=== PATIENT | female | born 1960 | race Caucasian/White ===

== ENCOUNTER 2018-11-18 11:10 | Observation (INO) ==
[2018-11-18 12:53] LABS: BASO# 0.07 X1000 (0.0-0.2); BASO% 1.1 % (0.0-0.8); EOS# 0.17 X1000 (0.0-0.7); EOS% 2.6 % (0.0-10.0); HEMATOCRIT 40.5 % (37.0-47.0); HEMOGLOBIN 13.2 g/dL (12.0-16.0); LYMPH% 21.1 % (20.5-51.1); MCHC 32.6 g/dL (33-37); MCV 85.8 FL (81-99); MONO# 0.39 X1000 (0.11-0.59); MONO% 5.9 % (1.7-9.3); NEUT# 4.59 X1000 (1.4-6.5); NEUT% 69.3 % (42.2-75.2); PLT 223 X1000 (130-400); RBC 4.72 XMIL (4.2-5.4); RDW 13.2 % (11.5-14.5); WBC 6.62 X1000 (4.8-10.8)
[2018-11-18 13:18] LABS: URINE SOURCE CATH
[2018-11-18 13:25] LABS: ALB/GLOB RATIO 1.3; ALBUMIN 3.7 g/dL (3.5-5.0); CALCIUM 8.5 mg/dL (8.8-10.2); CREATININE 1.1 mg/dL (0.5-0.9); TOTAL BILIRUBIN 0.31 mg/dL (0.20-1.00); TOTAL PROTEIN 6.5 g/dL (6.3-8.3)
[2018-11-18 13:30] LABS: BILIRUBIN URINE NEGATIVE (NEGATIVE); BLOOD URINE TRACE (NEGATIVE); COLOR YELLOW; GLUCOSE URINE 70 mg/dL (NEGATIVE); KETONE URINE NEGATIVE (NEGATIVE); LEUKOCYTES URINE LARGE (NEGATIVE); NITRITE URINE NEGATIVE (NEGATIVE); PH URINE 5.5; PROTEIN URINE 30 mg/dL (NEGATIVE); SP GRAVITY URINE 1.015; TURBIDITY URINE HAZY (CLEAR); UROBILINOGEN URINE NORMAL (NORMAL)
--- NOTE | 2018-11-18 13:41 | Diag Imaging Result Doc PS360 ---
KUB ABDOMEN - 11/18/2018 INDICATION: constipation c flank pain x 4 days COMPARISON: None FINDINGS: There is severe constipation, with impaction of the proximal ascending and transverse colon. No bowel obstruction or visible free air. There is significant vascular disease with calcification of the iliac artery systems and femoral arteries. IMPRESSION: 1. Severe constipation. 2. Peripheral vascular disease. Electronically signed by Alexis Colon 11/18/2018 1:38 PM
[2018-11-18 13:47] LABS: UR EPITHELIAL CELLS >10 /HPF (<10); URINE BACTERIA NEGATIVE /HPF; URINE CASTS NONE SEEN; URINE CRYSTALS NONE SEEN; URINE RBC <10 /HPF (<10); URINE WBC <10 /HPF (<10)
[2018-11-18 13:48] LABS: URINE SMALL ROUND CELLS RENAL PRESENT
[2018-11-18] MEDS ORDERED: ROCEPHIN 1 GM in NS 50 ML IV ONE (13:57)
--- NOTE | 2018-11-18 14:23 | PROVIDER DOCUMENTATION ---
HPI-General Adult - General Chief Complaint: Abdominal Pain Stated Complaint: abdominal pain Time Seen by Provider: 11/18/18 12:25 Source: patient Allergies/Adverse Reactions: Patient Allergies Allergy/AdvReac Type Severity Reaction Status Date / Time aspirin Allergy Severe RECTAL Verified 11/16/18 09:16 BLEEDING clindamycin Allergy Unknown RASH Verified 11/16/18 09:16 latex Allergy Unknown RASH Verified 11/16/18 09:16 sulfamethoxazole Allergy Unknown SWELLING Verified 11/16/18 09:16 [From Bactrim] trimethoprim [From Bactrim] Allergy Unknown SWELLING Verified 11/16/18 09:16 Home Medications: Home Medication List Medication Instructions Recorded Confirmed Last Taken Type Hydroxychloroquine Sulfate 200 mg PO DAILY 12/19/12 11/16/18 11/15/18 History Carvedilol [Coreg] 12.5 mg PO BID #60 tab 03/16/18 11/16/18 11/15/18 Rx ATORVAstatin [Lipitor] 40 mg PO QHS 06/17/18 11/16/18 11/15/18 History Aspirin [Adult Aspirin] 1 tab PO DAILY 09/29/18 11/16/18 11/15/18 History Ranolazine E.r. [Ranexa] 1 tab PO BID 09/29/18 11/16/18 11/15/18 History Ticagrelor [Brilinta] 1 tab PO BID 09/29/18 11/16/18 11/15/18 History Aripiprazole [Abilify] 5 mg PO QHS #30 tab 10/07/18 11/16/18 11/15/18 Rx Duloxetine [Cymbalta] 30 mg PO DAILY #30 cap 10/07/18 11/16/18 11/15/18 Rx Mirtazapine [Remeron] 15 mg PO QHS #30 tab 10/07/18 11/16/18 11/15/18 Rx Cephalexin [Keflex] 500 mg PO Q6HR #28 cap 11/12/18 11/16/18 11/15/18 Rx Cholecalciferol (Vitamin D3) 1 cap PO DAILY 11/12/18 11/16/18 11/15/18 History [Vitamin D3] Hydrocortisone Supp [Anusol-Hc 25 mg CO BID #12 supp 11/12/18 11/16/18 11/15/18 Rx Supp] Losartan [Cozaar] 25 mg PO DAILY 11/12/18 11/16/18 11/15/18 History Meclizine HCl [Antivert] 25 mg PO TID PRN #30 tab 11/12/18 11/16/18 11/15/18 Rx Melatonin 6 mg PO QHS PRN 11/12/18 11/16/18 11/15/18 History - History of Present Illness -Gen Adult Nature of Presenting Problems: 58 yo female pt who presents to the ED via EMS after she was found by her home health nurse sitting in her own feces. She reports that she had been to [facility] and recently had to have a catheter placed due to having urinary retention. She reports that she has abdominal pain, back pain, and generalized body aches. Review of Systems - Adult - REVIEW OF SYSTEMS - ADULT Constitutional: reports: no symptoms reported Eyes: reports: no symptoms reported Ears, Nose, Mouth & Throat: reports: no symptoms reported Cardiovascular: reports: no symptoms reported Respiratory: reports: no symptoms reported Gastrointestinal: reports: abdominal pain, constipation. denies: nausea, vomiting Genitourinary: reports: see HPI, dysuria, hesitency, urinary retention Musculoskeletal: reports: see HPI, back pain, muscle aches Integumentary: reports: no symptoms reported Neurological: reports: see HPI, other (generalized weakness) Psychiatric: reports: see HPI, anxiety, anti-depressant use, depression Past History - Adult - PAST MEDICAL HISTORY-ADULT Review of Records: reports: Old Records Reviewed, Nursing Assessment Review, Medications Reviewed, Social history reviewed & non-contributory. Major Childhood Illnesses: reports: denies history Cardiovascular: reports: CAD, HTN, hyperlipidemia, palpitations Respiratory: reports: denies history Gastrointestinal: reports: denies history Obstetrical/Gynecological: reports: denies history Genitourinary: reports: kidney disease (does not req dialysis) Musculoskeletal: reports: denies history Neurological: reports: denies history Psychiatric: reports: anxiety, psychiatric problems (suicidal thoughts, was at aug 7-15.) Endocrine/Immune: reports: Diabetes, lupus Other Conditions: reports: cataract/glaucoma (bilateral cat), eye problems/ injury (left eye hemmorage) - PRIOR SURGERIES/PROCEDURES Surgical/Procedure History: reports: cardiac stent (x2 jul 2018), , other (bilateral cataract) - IMMUNIZATION STATUS Childhood Immunizations: See Nurse Assessment Flu Vaccine: See Nurse Assessment - FAMILY HISTORY Family History: reviewed, not pertinent Physical Exam-General - PHYSICAL EXAM-ADULT Initial Vital Signs Reviewed: Yes - CONSTITUTIONAL General Appearance: appears well, alert, no apparent distress - EYES Eyes: PERRL/EOMI, pink conjunctivae - HEAD, EARS, NOSE, MOUTH & THROAT HENMT: normocephalic/atraumatic, moist mucous membranes, normal ENT inspection - NECK Neck: non-tender, full range of motion, supple - RESPIRATORY Respiratory: chest non-tender, lungs clear, normal breath sounds, no pleuratic chest pain - CARDIOVASCULAR Cardiovascular: normal peripheral pulses, regular rate, rhythm, no edema, no gallop, no JVD, no murmur - GASTROINTESTINAL (ABDOMEN) Abdominal Exam: distended, other (hypoactive bowel sounds with generalized abdominal tenderness). negative: non tender - LYMPHATIC Lymphatic: no adenopathy - MUSCULOSKELETAL Back Exam: normal inspection Extremity: normal range of motion Peripheral Pulses: radial (R): 2+, radial (L): 2+ - SKIN Integumentary: normal color, normal turgor, warm/dry - NEUROLOGIC Neurologic: grossly normal - PSYCHIATRIC Psych/Mental Status: normal mood/affect, normal thought content, normal thought process, oriented x 3 Progress - PLAN OF CARE/RESULTS Progress/Plan/Lab Results: Vital Signs - 8 hr 11/18/18 11:22 11/18/18 12:35 11/18/18 12:40 Temperature 98.8 F Pulse Rate 96 H 96 H 96 H Respiratory Rate 18 21 13 Blood Pressure 157/81 130/80 O2 Sat by Pulse Oximetry 99 98 97 11/18/18 12:50 11/18/18 13:00 11/18/18 13:02 Temperature Pulse Rate 93 H 93 H 93 H Respiratory Rate 15 11 L 13 Blood Pressure 156/84 O2 Sat by Pulse Oximetry 97 96 97 11/18/18 13:10 11/18/18 13:20 Temperature Pulse Rate 94 H 92 H Respiratory Rate 21 17 Blood Pressure O2 Sat by Pulse Oximetry 99 97 Laboratory Results - last 24 hr 11/18/18 11/18/18 11/18/18 11:21 12:22 12:22 WBC 6.62 RBC 4.72 Hgb 13.2 Hct 40.5 MCV 85.8 MCH 28.0 MCHC 32.6 L RDW Std Deviation 13.2 Plt Count 223 MPV 11.0 H Immature Gran % (Auto) 0.0 Neut % (Auto) 69.3 Lymph % (Auto) 21.1 Dickey % (Auto) 5.9 Eos % (Auto) 2.6 Baso % (Auto) 1.1 H Immature Gran # (Auto) 0.00 Neut # (Auto) 4.59 Lymph # (Auto) 1.40 Dickey # (Auto) 0.39 Eos # (Auto) 0.17 Baso # (Auto) 0.07 Sodium 143 Potassium 4.0 Chloride 103 Carbon Dioxide 27 Anion Gap 13 BUN 17 Creatinine 1.1 H Estimated GFR/1.73 m2 51 BUN/Creatinine Ratio 15 Glucose 87 POC Glucose 91 Calculated Osmolality 286 Calcium 8.5 L Total Bilirubin 0.31 AST 28 ALT 23 Alkaline Phosphatase 60 Total Protein 6.5 Albumin 3.7 Globulin 2.8 Albumin/Globulin Ratio 1.3 Amylase 55 Lipase 14 Urine Source Urine Color Urine Turbidity Urine pH Ur Specific Jackson Urine Protein Ur Glucose (Stick) Ur Ketones (Stick) Urine Blood Urine Nitrite Urine Bilirubin Urobilinogen Dipstick Urine Leukocytes Urine WBC (Auto) Urine RBC (Auto) U Epithel Cells (Auto) Urine Bacteria (Auto) Urine Crystals Small Round Cells Urine Casts Urine Yeast-like Cells 11/18/18 13:10 WBC RBC Hgb Hct MCV MCH MCHC RDW Std Deviation Plt Count MPV Immature Gran % (Auto) Neut % (Auto) Lymph % (Auto) Dickey % (Auto) Eos % (Auto) Baso % (Auto) Immature Gran # (Auto) Neut # (Auto) Lymph # (Auto) Dickey # (Auto) Eos # (Auto) Baso # (Auto) Sodium Potassium Chloride Carbon Dioxide Anion Gap BUN Creatinine Estimated GFR/1.73 m2 BUN/Creatinine Ratio Glucose POC Glucose Calculated Osmolality Calcium Total Bilirubin AST ALT Alkaline Phosphatase Total Protein Albumin Globulin Albumin/Globulin Ratio Amylase Lipase Urine Source CATH Urine Color YELLOW Urine Turbidity HAZY Urine pH 5.5 Ur Specific Jackson 1.015 Urine Protein 30 A Ur Glucose (Stick) 70 A Ur Ketones (Stick) NEGATIVE Urine Blood TRACE A Urine Nitrite NEGATIVE Urine Bilirubin NEGATIVE Urobilinogen Dipstick NORMAL Urine Leukocytes LARGE A Urine WBC (Auto) <10 Urine RBC (Auto) <10 U Epithel Cells (Auto) >10 A Urine Bacteria (Auto) NEGATIVE Urine Crystals NONE SEEN Small Round Cells RENAL PRESENT Urine Casts NONE SEEN Urine Yeast-like Cells Not Reportable Orders Category Date Time Status Saline Loc DIRECTED Care 11/18/18 12:20 Active NPO Diet 11/18/18 12:20 Active KUB ABDOMEN [RAD] Stat Exams 11/18/18 13:23 Completed AMYLASE [CHEM] Stat Lab 11/18/18 12:22 Completed CBC WITH ELECTRONIC DIFF [HEME] Stat Lab 11/18/18 12:22 Completed COMPREHENSIVE METABOLIC PANEL [CHEM] Stat Lab 11/18/18 12:22 Completed LIPASE [CHEM] Stat Lab 11/18/18 12:22 Completed URINALYSIS W/POSS RFLX CULT [URINALYSIS] Stat Lab 11/18/18 13:10 Completed URINE CULTURE [RM] Routine Lab 11/18/18 13:51 Received URINE MANUAL MICROSCOPIC [URINALYSIS] Stat Lab 11/18/18 13:10 Completed CefTRIAXONE [Rocephin] 1 gm Med 11/18/18 13:57 Active 0.9% Sodium Chloride Inj [Ns] 50 ml IV NOW I consulted the pt PCP who agreed that the pt is a failure to thrive, according to him the pt has a son, however they are not in contact, and the pt has no other family members. I consulted Destiny and discussed the pt labs, PE, and hx and she agreed to admit the pt. Result Diagrams: 11/18/18 12:22 11/18/18 12:22 Departure - Departure Date of Disposition Decision: 11/18/18 Time of Disposition Decision: 15:34 DIAGNOSIS: Failure to thrive, Urinary tract infection Disposition: ADMITTED INPATIENT 09 Certified Medical Emergency: Emergent Condition: Stable Referrals and Follow-Ups: Cooper Garcia MD [Primary Care Provider] - - Critical Care Note This patient required my direct & personal management of CC.: No Attestation - Physician/ CORINNE Attestation Patient care was provided by Advanced Practice Provider:: Yes Advanced Practice Provider:: Sang Lamb Advanced Practice Provider documentation review:: The Mid-level provider documentation, treatment plan and medical decision making was reviewed by the physician who agrees with all treatment and medical decision making by the MLP. The physician spent face to face time with patient:: No Advanced Practice Provider documentation review:: Supervising physician onsite and consulted in the evaluation and care of this patient. The physician did not have a face to face encounter with the patient.
[2018-11-18] MEDS ORDERED: TYLENOL PO PRN (15:49)
[2018-11-18] MEDS ORDERED: ZOFRAN IV PRN (15:49)
[2018-11-18] MEDS: NS 1,000 ML IV SCH (16:08)
--- NOTE | 2018-11-18 17:05 | Diag Imaging Result Doc PS360 ---
EXAM: US ABDOMEN-COMPLETE INDICATION: abd pain COMPARISON: 05/03/2011 FINDINGS: There is layering sludge and stones in the gallbladder lumen. There is no evidence of gallbladder wall thickening or pericholecystic fluid. The common bile duct is normal in diameter. The liver is grossly unremarkable. Portal venous flow is hepatopetal. The pancreas is partially obscured by bowel gas. The visualized portion is unremarkable. The aorta and IVC are grossly unremarkable. The spleen is unremarkable. The kidneys are grossly unremarkable. Incidentally, layering debris is noted in the urinary bladder lumen. IMPRESSION: 1.Cholelithiasis and layering sludge in the gallbladder lumen. 2.Incidental layering debris in the urinary bladder lumen. Electronically signed by Gabriel Ordaz 11/18/2018 5:03 PM
--- NOTE | 2018-11-18 17:15 | HISTORY AND PHYSICAL ---
HISTORY OF PRESENT ILLNESS: This is a 58-year-old followed by Dr. Garcia. The story is that she was I think having some trouble with her bladder and unable to void. I understand went to the emergency room a week ago , and she had a catheter put in. She was sent back home, and then she seems to report that she has been in the bed since , this is Saturday, but apparently has been in the bed a good portion of the time, and she has had lower abdominal pain. That is what took her to the emergency room, and they thought that was probably bladder distention and that may be what she is experiencing now. She complains that she has always had trouble with constipation, but she seems very weak, could not get up. Home health came out, and they found her, I think in the bed with incontinence and told her to come to the emergency room. She does not give a history of fever or chills or cough or sputum production or pleuritic pain or chest pain, just feeling very weak. Did not eat or drink much, by her report, and stayed tired and stayed in the bed. PAST MEDICAL HISTORY: 1. Depression and anxiety. Her spouse in November 2016. 2. She has diabetes mellitus type 2. She is having visual trouble so apparently diabetic retinopathy and peripheral neuropathy. 3. She has had a suicide attempt, an overdose in 2018, and she was admitted to [facility]. 4. Major depressive disorder. 5. General anxiety disorder. 6. Insomnia. 7. Mild cognitive impairment. 8. Coronary artery disease. She has had 2 stents placed in July 2018. 9. Hypertension. 10. Hypercholesterolemia. 11. It sounds like lupus, but I do not know if this is discoid lupus or systemic lupus erythematosus. 12. Gastroesophageal reflux. 13. Diabetic neuropathy.
[2018-11-19] MEDS: RANEXA PO SCH ×3 (00:17→20:51)
[2018-11-19] MEDS: PERICOLACE PO SCH ×3 (00:17→20:51)
[2018-11-19] MEDS: ABILIFY PO SCH ×2 (00:17→20:51)
[2018-11-19] MEDS: BRILINTA PO SCH ×3 (00:18→20:53)
[2018-11-19] MEDS: COREG PO SCH ×3 (00:18→20:51)
[2018-11-19] MEDS: REMERON PO SCH ×2 (00:18→20:56)
[2018-11-19] MEDS: PRILOSEC PO SCH ×3 (00:18→20:52)
[2018-11-19] MEDS: LIPITOR PO SCH ×2 (00:26→20:51)
[2018-11-19] MEDS: LACTULOSE PO SCH ×3 (00:26→20:53)
[2018-11-19] MEDS: MIRALAX PO SCH ×3 (00:27→20:53)
[2018-11-19 06:18] LABS: INR 0.98; PROTIME 13.8 Seconds (11.0-16.0)
[2018-11-19 06:19] LABS: BASO# 0.04 X1000 (0.0-0.2); BASO% 0.6 % (0.0-0.8); EOS# 0.16 X1000 (0.0-0.7); EOS% 2.5 % (0.0-10.0); HEMATOCRIT 33.5 % (37.0-47.0); HEMOGLOBIN 10.7 g/dL (12.0-16.0); LYMPH# 1.87 X1000 (1.2-3.4); LYMPH% 29.4 % (20.5-51.1); MCH 27.9 PG (27-31); MCHC 31.9 g/dL (33-37); MCV 87.5 FL (81-99); MONO# 0.56 X1000 (0.11-0.59); MONO% 8.8 % (1.7-9.3); MPV 11.1 FL (7.4-10.4); NEUT# 3.74 X1000 (1.4-6.5); NEUT% 58.7 % (42.2-75.2); PLT 209 X1000 (130-400); PTT 30.4 Seconds (22.3-41.8); RBC 3.83 XMIL (4.2-5.4); WBC 6.37 X1000 (4.8-10.8)
[2018-11-19 06:28] LABS: HEMOGLOBIN A1C 5.6 % (4.8-6.0)
[2018-11-19] MEDS: NS 1,000 ML IV SCH (06:32)
[2018-11-19 06:46] LABS: ALB/GLOB RATIO 1.4; ALBUMIN 3.2 g/dL (3.5-5.0); CALCIUM 8.5 mg/dL (8.8-10.2); CREATININE 1.1 mg/dL (0.5-0.9); MAGNESIUM 1.7 mg/dL (1.5-2.7); POTASSIUM 3.5 mmol/L (3.5-5.1); TOTAL BILIRUBIN 0.2 mg/dL (0.20-1.00); TOTAL PROTEIN 5.5 g/dL (6.3-8.3)
[2018-11-19 06:50] LABS: FREE T4 1.35 ng/dL (0.93-1.70); TSH 1.61 uIUmL (0.27-4.20)
[2018-11-19] MEDS: ROCEPHIN 1 GM in NS 50 ML IV SCH (08:52)
[2018-11-19] MEDS: PLAQUENIL PO SCH (08:52)
[2018-11-19] MEDS: VITAMIN D PO SCH (08:54)
[2018-11-19] MEDS: DULCOLAX PR SCH (08:56)
[2018-11-19] MEDS: LOVENOX SUBQ SCH (08:56)
[2018-11-19] MEDS ORDERED: CYMBALTA PO SCH (09:00)
[2018-11-19] MEDS: COZAAR PO SCH (09:06)
--- NOTE | 2018-11-19 09:58 | PROGRESS NOTE ---
DATE: 11/19/2018 SUBJECTIVE: Ms. Pak is feeling a little bit better. She has a Barboza catheter in. She has not had anything in the way of a bowel movement. She is tolerating her breakfast well. She is awake, alert, and oriented x3 at the present time. She appears pleasant and cooperative. PHYSICAL EXAMINATION: Temperature 99 degrees, pulse 85, respirations 18, blood pressure 115/78. Pupils are equal and round. Lungs are clear in all lung alford. Cardiovascular Examination: Regular rhythm and rate without murmur or S3. Abdomen is soft. Skin is warm and dry. Urine output was 3200 mL. ASSESSMENT AND PLAN: 1. Severe constipation. Her abdominal x-ray on 11/18/2018, yesterday, showed severe constipation and some evidence of peripheral vascular disease. We will continue her lactulose and her MiraLAX. 2. Bladder retention. Had a good amount of residual when they put the Barboza catheter in. I suspect this was related to her constipation. Try to clean her out. See if we can get her bowels moving and get her bladder working better to empty. 3. History of depression. Continue her current medications. 4. History of coronary artery disease. She has had two stents in July. She is on Lipitor and Cozaar. 5. History of depression and anxiety. She is on Cymbalta 30 mg a day and Abilify 5 mg at bedtime. 6. We will give her physical therapy, work on getting her up out of bed, and work on her strength. cc: Ramses Mcfadden MD
--- NOTE | 2018-11-19 15:13 | CONSULTATION ---
DATE OF CONSULTATION: 11/19/2018 REASON FOR CONSULTATION: Severe constipation. HISTORY OF PRESENT ILLNESS: This is a 58-year-old white female who follows with Dr. Garcia. By records in our chart, we have not seen her in over 10 years. She has a burnt chart. Apparently, patient had been having some problems with her bladder. She reports that she had cardiovascular stents placed in July. Since then, she had been not feeling well and was getting home health to help with strengthening. She had apparently had some problems with constipation. She had reported having bowel movements every other day. Apparently home health had followed with her and she had stool incontinence, She was brought into the emergency room for further evaluation. She had imaging studies that showed severe constipation with impaction of the proximal ascending and transverse colon with no evidence of bowel obstruction or free air and noted peripheral vascular disease. She has also had an abdominal ultrasound that shows cholelithiasis and sludge in the gallbladder and layering debris in the urinary bladder. There was no evidence of gallbladder wall thickening or pericholecystic fluid. Common bile duct was normal. Patient has been given multiple laxatives. At the time of my evaluation, she states she has had a formed stool this morning. PAST MEDICAL HISTORY 2. Anxiety and depression. Her in November 2016. 3. Diabetes. 4. History of suicidal attempt in 2017. 5. Coronary artery disease. Patient had cardiovascular stents placed in July 2018. 6. Hypertension, 7. Hypercholesterolemia. 8. Lupus. 9. GERD. 10. Diabetic neuropathy. 11. Chronic kidney disease. 12. Diabetic retinopathy. 13. Osteoarthritis. 14. History of cataracts. ALLERGIES: Aspirin causing rectal bleeding. Clindamycin rash. Latex rash. Bactrim swelling. HOME MEDICATIONS: 1. Abilify 5 mg every night. 2. Aspirin 1 tablet daily. 3. Lipitor 40 mg every night. 4. Carvedilol 6.25 twice daily. 5. Vitamin D 3 one daily. 6. Ciprofloxacin 500 mg twice a day. 7. Cymbalta 30 mg every night. 8. Hydroxychloroquine sulfate 200 mg daily. 9. Flagyl 500 mg three times a day. 10. Remeron 15 mg every night. 11. Ranexa 500 mg twice a day. 12. Brilinta 1 tablet twice a day. SOCIAL HISTORY: She lives alone. Her spouse in 2016. She denies tobacco or alcohol use. She has 2 sons. REVIEW OF SYSTEMS: Per history of present illness. PHYSICAL EXAMINATION: Vital Signs: Temperature 98.6 degrees, pulse 84, respirations 15, blood pressure 116/54. Generally: Awake, alert, no acute distress. HEENT: Normocephalic, atraumatic. Pupils equal, round, reactive to light. Sclerae are nonicteric. Respiratory: Lung sounds essentially clear bilaterally. Cardiovascular: Regular rate and rhythm. Abdomen: Soft. Positive bowel sounds. At present time, she was not tender to palpation. She states she did have a bowel movement. DIAGNOSTIC RESULTS: Laboratory: Hematology: WBC 6.37, hemoglobin 10.7, hematocrit 33.5, MCV 87.5, platelets 209. Coagulation: Pro time 13.8, INR 0.98, PTT 30.4. Chemistry: Sodium 141, potassium 3.5, chloride 104, CO2 28. BUN 23, creatinine 1.1, glucose 143, total bilirubin 0.20. AST 25, ALT 20, alkaline phosphatase 53. Imaging studies: Abdominal x-ray on 11/18/2018 showed severe constipation with impaction of proximal ascending and transverse colon and peripheral vascular disease. An ultrasound of the abdomen showed cholelithiasis with layering sludge with no evidence of gallbladder wall thickening. ASSESSMENT AND PLAN: 1. Severe constipation. Patient has had laxatives and did have a bowel movement this morning. 2. Bladder retention. Patient has a Barboza catheter in place. 3. Other medical problems including anxiety, depression, coronary artery disease. The patient had cardiovascular stents placed in July and is on Brilinta. 4. Continue current laxatives. She is receiving MiraLAX, Senna, lactulose and Dulcolax. Once she starts going better, those can be adjusted according to her symptoms. Due to her recent cardiovascular stents in July and on Brilinta, would not proceed with a colonoscopy at this time. Will continue to follow her during her hospital course and further plans will be made according to her progress. Recommend when she is discharged home, she will be discharged on daily laxatives. Recommend she follow up with us as an outpatient. She does not think she has ever had a colonoscopy. We will plan to proceed with a colonoscopy when she is able to come off of her anticoagulation safely. I have discussed this case with Dr. Fernandes. Thank you for this consultation. Dictated by TC Dutton for Clint Fernandes MD cc: TC Bonner MD [facility]
[2018-11-19] MEDS ORDERED: CALMOSEPTINE OINTMENT TOP PRN (17:09)
[2018-11-19] MEDS: CYMBALTA PO SCH (20:51)
[2018-11-19] MEDS: MELATONIN PO PRN (21:09)
[2018-11-20 07:23] LABS: BASO# 0.03 X1000 (0.0-0.2); BASO% 0.6 % (0.0-0.8); EOS# 0.11 X1000 (0.0-0.7); HEMATOCRIT 33.3 % (37.0-47.0); HEMOGLOBIN 10.5 g/dL (12.0-16.0); LYMPH# 1.94 X1000 (1.2-3.4); LYMPH% 35.7 % (20.5-51.1); MCH 27.5 PG (27-31); MCHC 31.5 g/dL (33-37); MCV 87.2 FL (81-99); MONO# 0.36 X1000 (0.11-0.59); MONO% 6.6 % (1.7-9.3); NEUT% 55.1 % (42.2-75.2); PLT 197 X1000 (130-400); RBC 3.82 XMIL (4.2-5.4); WBC 5.44 X1000 (4.8-10.8)
[2018-11-20 07:35] LABS: ALB/GLOB RATIO 1.3; ALBUMIN 3.2 g/dL (3.5-5.0); CALCIUM 8.3 mg/dL (8.8-10.2); CREATININE 1.1 mg/dL (0.5-0.9); MAGNESIUM 1.6 mg/dL (1.5-2.7); POTASSIUM 3.7 mmol/L (3.5-5.1); TOTAL BILIRUBIN 0.16 mg/dL (0.20-1.00); TOTAL PROTEIN 5.6 g/dL (6.3-8.3)
[2018-11-20] MEDS: NS 1,000 ML IV SCH ×2 (08:43→21:42)
[2018-11-20] MEDS: ROCEPHIN 1 GM in NS 50 ML IV SCH (08:44)
[2018-11-20] MEDS: PLAQUENIL PO SCH (08:47)
[2018-11-20] MEDS: RANEXA PO SCH ×2 (08:47→21:39)
[2018-11-20] MEDS: COZAAR PO SCH (08:48)
[2018-11-20] MEDS: BRILINTA PO SCH ×2 (08:48→21:39)
[2018-11-20] MEDS: VITAMIN D PO SCH (08:48)
[2018-11-20] MEDS: COREG PO SCH ×2 (08:48→21:41)
[2018-11-20] MEDS: DULCOLAX PR SCH (08:54)
[2018-11-20] MEDS: LACTULOSE PO SCH ×2 (08:55→21:38)
[2018-11-20] MEDS: LOVENOX SUBQ SCH (08:55)
[2018-11-20] MEDS: PRILOSEC PO SCH ×2 (08:55→21:39)
[2018-11-20] MEDS: MIRALAX PO SCH (08:55)
[2018-11-20] MEDS: PERICOLACE PO SCH ×2 (08:55→21:40)
--- NOTE | 2018-11-20 13:18 | PROGRESS NOTE ---
DATE: 11/20/2018 SUBJECTIVE: She reports she feels better. She has had a couple bowel movements. Her stools are kind of loose. She has been walking around the halls. She is getting some food down. OBJECTIVE: Vital Signs: Temperature 97.8 degrees, pulse 87, respirations 18, blood pressure 111/69. Eyes: Pupils are equal and round. Lungs: Clear in all lung alford. Cardiovascular exam: Regular rhythm and rate without murmur or S3. Blood sugars 132, 111 and 133. ASSESSMENT AND PLAN: 1. Severe constipation. So, seems to be making progress. 2. Bladder retention. Put a Barboza catheter in place, which we will probably need to take that out tomorrow and see how we do voiding. I suspect it is related to constipation. 3. Problem with anxiety, depression. 4. History of coronary artery disease. No sign of active ischemia. She has had cardiac stents placed in July and she is on Brilinta. 5. General weakness. Continue physical therapy. Seems like we are making progress. Review of her medication orders: I do not see any change. Physical therapy is already involved I believe. cc: Ramses Mcfadden MD
[2018-11-20] MEDS: ABILIFY PO SCH (21:39)
[2018-11-20] MEDS: REMERON PO SCH (21:40)
[2018-11-20] MEDS: LIPITOR PO SCH (21:40)
[2018-11-20] MEDS: CYMBALTA PO SCH (21:40)
[2018-11-21] MEDS: NS 1,000 ML IV SCH ×4 (00:25→20:56)
[2018-11-21] MEDS: MIRALAX PO SCH ×3 (00:25→20:58)
[2018-11-21] MEDS: ROCEPHIN 1 GM in NS 50 ML IV SCH (08:27)
[2018-11-21] MEDS: LACTULOSE PO SCH ×2 (08:28→20:57)
[2018-11-21] MEDS: LOVENOX SUBQ SCH (08:29)
[2018-11-21] MEDS: DULCOLAX PR SCH (08:29)
[2018-11-21] MEDS: PERICOLACE PO SCH ×2 (08:30→20:56)
[2018-11-21] MEDS: PRILOSEC PO SCH ×2 (08:31→20:57)
[2018-11-21] MEDS: RANEXA PO SCH ×2 (08:31→20:55)
[2018-11-21] MEDS: PLAQUENIL PO SCH (08:32)
[2018-11-21] MEDS: COZAAR PO SCH (08:32)
[2018-11-21] MEDS: VITAMIN D PO SCH (08:32)
[2018-11-21] MEDS: BRILINTA PO SCH ×2 (08:32→20:57)
[2018-11-21] MEDS: COREG PO SCH ×2 (08:32→20:56)
--- NOTE | 2018-11-21 14:38 | PROGRESS NOTE ---
DATE: 11/21/2018 SUBJECTIVE: She is doing better. Her bowels have moved, but she still has a good deal of urinary retention, I think it was 600 mL, so we put a Barboza catheter in her. OBJECTIVE: Vital signs: She remains afebrile, temperature 98.8 degrees, pulse 82, respirations 20, blood pressure 124/70. HEENT: Pupils are equal and round. Lungs: Clear in all lung alford. Cardiovascular: Regular rhythm and rate without murmur or S3. Abdomen: Soft. Skin: Warm and dry. Urine output 1400 mL. Last night her urine output was 3000 mL. ASSESSMENT AND PLAN: 1. Severe constipation. 2. Bladder retention. We put a Barboza catheter back in because of urinary retention. 3. Anxiety and depression. 4. History of coronary artery disease. No sign of active ischemia. 5. General weakness, deconditioning. 6. I think she is improving on all fronts. Her sons would really like her to go to rehab, so we are going to try and set up something for rehab for a time until she can get a little stronger and go home. Plan is to try and take the Barboza catheter out again and see how we do with her urinary discharge. Looking at her orders, I do not see any change at this point. 7. History of coronary artery disease. She is on Brilinta. No sign of active cardiac ischemia. cc: Ramses Mcfadden MD
--- NOTE | 2018-11-21 18:31 | GASTROENTEROLOGY PROGRESS NOTE ---
DATE: 11/21/2018 SUBJECTIVE: Patient states she is feeling better. She has had several bowel movements. She is continuing on laxative. OBJECTIVE: Vital Signs: Temperature 98.4 degrees, pulse 79, respirations 18, blood pressure 157/75. General: Patient is awake, alert, no acute distress. LABORATORY: Hematology. WBC 5.44, hemoglobin 10.5, hematocrit 33.3. Chemistry. Sodium 141, potassium 3.7, chloride 106, CO2 26, BUN 17, creatinine 1.1, glucose 109. ASSESSMENT AND PLAN: 1. Severe constipation. Patient has had laxative. She is having bowel movements now. Continue laxative regimen and recommend once she is discharged she continue laxatives at home. 2. Bladder retention following with hospitalist. 3. Again continue laxative regimen, continue laxatives at home. Recommend she follow up with us at discharge. I have given her contact information to call and make an office visit appointment. I have discussed this case with Dr. Fernandes. Dictated by TC Dutton for Clint Fernandes MD cc: TC Bonner MD
[2018-11-21] MEDS: REMERON PO SCH (20:55)
[2018-11-21] MEDS: ABILIFY PO SCH (20:55)
[2018-11-21] MEDS: LIPITOR PO SCH (20:57)
[2018-11-21] MEDS: MELATONIN PO PRN (21:00)
[2018-11-21] MEDS: CYMBALTA PO SCH (21:04)
[2018-11-22] MEDS: NS 1,000 ML IV SCH ×2 (08:05→20:47)
[2018-11-22] MEDS: COREG PO SCH ×2 (10:17→20:48)
[2018-11-22] MEDS: PLAQUENIL PO SCH (10:17)
[2018-11-22] MEDS: VITAMIN D PO SCH (10:17)
[2018-11-22] MEDS: PRILOSEC PO SCH ×2 (10:17→20:50)
[2018-11-22] MEDS: BRILINTA PO SCH ×2 (10:18→20:48)
[2018-11-22] MEDS: RANEXA PO SCH ×2 (10:18→20:50)
[2018-11-22] MEDS: LOVENOX SUBQ SCH ×2 (10:20→10:23)
[2018-11-22] MEDS: ROCEPHIN 1 GM in NS 50 ML IV SCH (10:20)
[2018-11-22] MEDS: COZAAR PO SCH (10:20)
[2018-11-22] MEDS: DULCOLAX PR SCH (10:22)
[2018-11-22] MEDS: MIRALAX PO SCH ×2 (10:23→20:48)
[2018-11-22] MEDS: PERICOLACE PO SCH ×2 (10:23→20:48)
[2018-11-22] MEDS: LACTULOSE PO SCH ×2 (10:23→20:49)
--- NOTE | 2018-11-22 11:00 | PROGRESS NOTE ---
DATE: 11/22/2018 SUBJECTIVE: Ms. Pak is feeling better. She has a Barboza catheter in. Her abdomen feels better and her bowels have been moving. OBJECTIVE: Vital Signs: Temperature 98 degrees, pulse 80, respirations 19, blood pressure 142/76. HEENT: Pupils are equal and round. Lungs: Clear in all lung alford. Cardiovascular: Regular rhythm and rate without murmur or S3. DATA: Urine output is 2300 mL. Blood sugar 121, 153, 114. ASSESSMENT AND PLAN: 1. Severe constipation, which is improving. 2. Bladder retention. I think is related to the constipation. She has a Babroza catheter at this time. Hopefully, we can take that out. I may put her on some Flomax to help. 3. Anxiety and depression, which is better. 4. History of coronary artery disease. No sign of active ischemia. 5. General weakness and deconditioning. Continue physical therapy. Our plan is to go to rehab. 6. Her cognition seems to have improved. She understands the plan. The plan is to try to get to rehab on Saturday or Saturday, today is Saturday, and continue physical therapy and continue to try and get her up out of bed. I am going to try and take the catheter out on Saturday, and I believe we can stop the ceftriaxone. cc: Ramses Mcfadden MD
--- NOTE | 2018-11-22 11:55 | Diag Imaging Result Doc PS360 ---
EXAM: KUB ABDOMEN INDICATION: constipation TECHNIQUE: 2 views COMPARISON: 11/18/2018 FINDINGS: There is a large amount of stool in the colon and rectum indicating significant constipation. It is worse than the previous study. No obstructive bowel pattern is appreciated. There is no evidence of large volume free abdominal gas. The abdomen is stable, otherwise. IMPRESSION: Worsening constipation. Electronically signed by Gabriel Ordaz 11/22/2018 11:53 AM
[2018-11-22] MEDS: REMERON PO SCH (20:48)
[2018-11-22] MEDS: LIPITOR PO SCH (20:48)
[2018-11-22] MEDS: CYMBALTA PO SCH (20:49)
[2018-11-22] MEDS: ABILIFY PO SCH (20:50)
[2018-11-23] MEDS: NS 1,000 ML IV SCH ×2 (07:53→17:55)
[2018-11-23] MEDS ORDERED: GOLYTELY PO ONE (08:05)
--- NOTE | 2018-11-23 08:30 | PROGRESS NOTE ---
DATE: 11/23/2018 SUBJECTIVE: Ms. Pak is feeling better. She still has her Barboza catheter in. Bowels have been moving. She is getting some food down. She does feel generally weak. OBJECTIVE: Temperature 98.0 degrees, pulse 74, respirations 18, blood pressure 121/68. Pupils are equal and round. Lungs are clear in all lung alford. Cardiovascular Examination: Regular rhythm and rate without murmur or S3. Abdomen is soft, nondistended. Extremities without clubbing, cyanosis, edema. Urine output was almost 3 L. Labs: Reviewed. We will again check electrolytes and CBC again in the morning. Blood sugars have been 121, 150, 153. Abdominal x-ray on 11/22/2018, worsening constipation, large amount of stool in the colon and rectum, indicating significant constipation. No obstructive bowel pattern appreciated. ASSESSMENT AND PLAN: 1. Constipation. Continue her lactulose. She is on MiraLAX twice a day and on sennoside docusate 2 twice a day. I will see if maybe we need to sip on some Colyte and see if we can get her bowels to go. 2. Urinary retention. Has a Barboza catheter in. I think it is related to her constipation. 3. History of depression. Continue her Abilify 5 mg at bedtime. 4. Coronary artery disease. Continue her Brilinta. She is on Coreg 12.5 mg twice a day. She is also on her Cymbalta 30 mg a day. cc: Ramses Mcfadden MD
[2018-11-23] MEDS: PERICOLACE PO SCH ×2 (09:42→21:24)
[2018-11-23] MEDS: PRILOSEC PO SCH ×2 (09:43→21:25)
[2018-11-23] MEDS: PLAQUENIL PO SCH (09:43)
[2018-11-23] MEDS: COZAAR PO SCH (09:44)
[2018-11-23] MEDS: BRILINTA PO SCH ×2 (09:44→21:24)
[2018-11-23] MEDS: LACTULOSE PO SCH ×2 (09:45→21:24)
[2018-11-23] MEDS: RANEXA PO SCH ×2 (09:45→21:25)
[2018-11-23] MEDS: COREG PO SCH ×2 (09:45→21:25)
[2018-11-23] MEDS: VITAMIN D PO SCH (09:45)
[2018-11-23] MEDS: DULCOLAX PR SCH (09:46)
[2018-11-23] MEDS: MIRALAX PO SCH ×2 (12:38→21:24)
[2018-11-23] MEDS: LOVENOX SUBQ SCH (12:39)
[2018-11-23] MEDS: CYMBALTA PO SCH (21:24)
[2018-11-23] MEDS: REMERON PO SCH (21:24)
[2018-11-23] MEDS: ABILIFY PO SCH (21:24)
[2018-11-23] MEDS: LIPITOR PO SCH (21:24)
[2018-11-24] MEDS: NS 1,000 ML IV SCH ×3 (05:30→21:58)
[2018-11-24] MEDS: LACTULOSE PO SCH ×2 (10:13→21:59)
[2018-11-24] MEDS: MIRALAX PO SCH ×2 (10:14→22:00)
[2018-11-24] MEDS: RANEXA PO SCH ×2 (10:16→21:58)
[2018-11-24] MEDS: VITAMIN D PO SCH (10:16)
[2018-11-24] MEDS: COREG PO SCH ×2 (10:16→21:59)
[2018-11-24] MEDS: PRILOSEC PO SCH ×2 (10:17→21:59)
[2018-11-24] MEDS: BRILINTA PO SCH ×2 (10:17→21:59)
[2018-11-24] MEDS: PERICOLACE PO SCH ×2 (10:17→21:59)
[2018-11-24] MEDS: PLAQUENIL PO SCH (10:18)
[2018-11-24] MEDS: DULCOLAX PR SCH (10:19)
[2018-11-24] MEDS: LOVENOX SUBQ SCH (10:19)
[2018-11-24] MEDS: COZAAR PO SCH (10:19)
[2018-11-24] MEDS ORDERED: BLISTEX MEDICATED BERRY LIP BALM TOP ONE (10:53)
--- NOTE | 2018-11-24 13:10 | GASTROENTEROLOGY PROGRESS NOTE ---
DATE: 11/24/2018 SUBJECTIVE: Patient states she is feeling better. She thinks she may go to rehabilitation because she is weak. She states she is having bowel movements. She is on a laxative regimen. She currently denies abdominal pain. OBJECTIVE: Vital Signs: Temperature 98.5 degrees, pulse 81, respirations 16, blood pressure 139/74. General: Patient is awake and alert. In no acute distress. LABORATORY DATA: Hematology: WBC 5.44, hemoglobin 10.5, hematocrit 33.3, platelets 197,000. Chemistry: Sodium 141, potassium 3.7, chloride 106, CO2 of 26, BUN 17, creatinine 1.1. ASSESSMENT AND PLAN: 1. Constipation. Has improved. Continue laxative regimen. 2. Urinary retention. She still has Barboza catheter in place. Following with hospitalist. 3. Coronary artery disease. Continue on medical management. PLAN: We will continue to follow during her hospital course. Recommend she follow up with us as an outpatient. She can follow in the office after her rehabilitation stay unless needed sooner. I have discussed this case with Dr. Fernandes. Dictated by TC Dutton for Clint Fernandes MD cc: TC Bonner MD
--- NOTE | 2018-11-24 16:19 | PROGRESS NOTE ---
DATE: 11/24/2018 SUBJECTIVE: Ms. Pak is feeling better. Her bowels are moving, and she still has her Barboza catheter out. She is a little nervous about getting it out, but I think we need to get the catheter out and see if she can void. She is getting stronger. They are walking around in the hallway, and the plan is to try and get her to rehabilitation to get a little stronger. OBJECTIVE: Vital signs: Temperature 98.8 degrees, pulse 85, respirations 21, blood pressure 167/91. HEENT: Pupils are equal and round. Lungs: Clear in all lung alford. Cardiovascular: Regular rhythm and rate without murmur or S3. Abdomen: Soft, nontender, nondistended. Skin: Warm and dry. Output: Urine output is a little over 4000 mL. ASSESSMENT AND PLAN: 1. Constipation, improved. Continue laxative regimen. 2. Urinary retention. We will take the Barboza catheter out and see how we do. 3. History of coronary artery disease. No sign of active ischemia. 4. General weakness and deconditioning. Continue physical therapy. 5. Underlying dementia. Her cognitive status seems to have improved since she has come into the hospital. She is very cooperative, very pleasant. We will take out her Barboza catheter and we are looking for rehabilitation potentials. 6. List of medications: She has a has a history of depression, history of hypercholesterolemia and some insomnia, so she is on Abilify 5 mg at bedtime, Lipitor 40 mg at bedtime, Coreg 12.5 mg b.i.d., vitamin D3 of 1000 mg daily, Cymbalta 30 mg a day, lactulose 30 mL b.i.d., Cozaar 25 mg a day, normal saline at 85 mL an hour, MiraLAX 17 g b.i.d., Ranexa ER 500 mg b.i.d., Zaira-Colace 2 b.i.d., Brilinta 90 mg. cc: Ramses Mcfadden MD MTDD
[2018-11-24] MEDS: ABILIFY PO SCH (21:58)
[2018-11-24] MEDS: LIPITOR PO SCH (21:58)
[2018-11-24] MEDS: CYMBALTA PO SCH (21:59)
[2018-11-24] MEDS: REMERON PO SCH (21:59)
[2018-11-25 07:15] LABS: BASO# 0.03 X1000 (0.0-0.2); BASO% 0.5 % (0.0-0.8); EOS# 0.17 X1000 (0.0-0.7); EOS% 2.6 % (0.0-10.0); HEMATOCRIT 33.5 % (37.0-47.0); HEMOGLOBIN 10.7 g/dL (12.0-16.0); LYMPH# 2.24 X1000 (1.2-3.4); LYMPH% 33.6 % (20.5-51.1); MCH 27.9 PG (27-31); MCHC 31.9 g/dL (33-37); MCV 87.5 FL (81-99); MONO# 0.35 X1000 (0.11-0.59); MONO% 5.3 % (1.7-9.3); MPV 10.8 FL (7.4-10.4); NEUT# 3.87 X1000 (1.4-6.5); PLT 227 X1000 (130-400); RBC 3.83 XMIL (4.2-5.4); RDW 13.2 % (11.5-14.5); WBC 6.66 X1000 (4.8-10.8)
[2018-11-25 07:32] LABS: AGAP 10; ALB/GLOB RATIO 1.5; ALBUMIN 3.2 g/dL (3.5-5.0); ALKALINE PHOSPHATASE 49 U/L (32-104); BUN 8 mg/dL (8-22); CALCIUM 8.1 mg/dL (8.8-10.2); CHLORIDE 108 mmol/L (98-107); COSMO 282; CREATININE 0.8 mg/dL (0.5-0.9); ESTIMATED GFR > 60; GLUCOSE 104 mg/dL (70-104); GOT 13 U/L (10-30); GPT 14 U/L (10-36); POTASSIUM 3.4 mmol/L (3.5-5.1); SODIUM 142 mmol/L (136-145); TCO2 24 mmol/L (25-35); TOTAL BILIRUBIN 0.17 mg/dL (0.20-1.00); TOTAL PROTEIN 5.4 g/dL (6.3-8.3)
--- NOTE | 2018-11-25 08:59 | Diag Imaging Result Doc PS360 ---
EXAM: CHEST-PORTABLE - 11/25/2018 HISTORY: rehab placement TECHNIQUE: Portable chest COMPARISON: 10/01/2018 FINDINGS: Heart size appears within normal limits. There is slight prominence of central vascular markings. There is no dense consolidation, pleural effusion, or pneumothorax identified. IMPRESSION: Slight prominence of central vascular markings. No evidence of pneumonia. Electronically signed by Boni Acosta 11/25/2018 8:56 AM
[2018-11-25] MEDS: NS 1,000 ML IV SCH (09:46)
[2018-11-25] MEDS: MIRALAX PO SCH ×2 (09:47→20:35)
[2018-11-25] MEDS: VITAMIN D PO SCH (09:48)
[2018-11-25] MEDS: BRILINTA PO SCH ×2 (09:48→20:31)
[2018-11-25] MEDS: PERICOLACE PO SCH ×2 (09:48→20:35)
[2018-11-25] MEDS: RANEXA PO SCH ×2 (09:48→20:30)
[2018-11-25] MEDS: PLAQUENIL PO SCH (09:49)
[2018-11-25] MEDS: COREG PO SCH ×2 (09:49→20:30)
[2018-11-25] MEDS: PRILOSEC PO SCH ×2 (09:49→20:30)
[2018-11-25] MEDS: LOVENOX SUBQ SCH (09:51)
[2018-11-25] MEDS: COZAAR PO SCH (09:51)
[2018-11-25] MEDS: LACTULOSE PO SCH ×2 (09:51→20:35)
[2018-11-25] MEDS: DULCOLAX PR SCH (09:52)
--- NOTE | 2018-11-25 11:17 | GASTROENTEROLOGY PROGRESS NOTE ---
DATE: 11/25/2018 SUBJECTIVE: Patient states she is feeling better. She is having bowel movements. She had a Barboza catheter removed and she has urinated. OBJECTIVE: Vital Signs: Temperature 98.4 degrees, pulse 77, respirations 17, blood pressure 164/79. General: Patient is awake and alert, in no acute distress. LABORATORY DATA: Hematology: WBC 6.66, hemoglobin 10.7, hematocrit 33.5, MCV 87.5, platelet 227,000. Chemistry: Sodium 142, potassium 3.4, chloride 108, CO2 24, BUN 8, creatinine 0.8, glucose 104. ASSESSMENT AND PLAN: 1. Constipation has improved. Continue laxative regimen. 2. Urinary retention. Her Barboza catheter has been removed and patient states she has urinated. Will continue to follow during her hospital course. I have recommended she follow up with us as an outpatient. I have given our contact information. She states she may go to rehab. She can follow up with us in the office after her rehab stay. I have discussed this case with Dr. Fernandes. Dictated by TC Dutton for Clint Fernandes MD cc: TC Bonnre MD [facility]
--- NOTE | 2018-11-25 14:07 | DISCHARGE SUMMARY ---
ADMISSION DATE: 11/18/2018 DISCHARGE DATE: 11/25/2018 FINAL DISCHARGE DIAGNOSES: 1. Urinary retention. 2. Constipation. 3. Anxiety disorder. 4. Major depression. 5. History of suicide attempts. 6. Coronary artery disease. 7. Hypertension. 8. Diabetes mellitus type 2 diet controlled. 9. Lupus. 10. Osteoarthritis. 11. Obesity. 12. Dyslipidemia. CONSULTATIONS REQUESTED DURING HOSPITAL STAY: GI consultation with Dr. Fernandes. IMAGIN. Abdominal ultrasound which revealed cholelithiasis with gallbladder sludge. 2. Abdominal x-ray which revealed severe constipation. 3. Peripheral vascular disease. HOSPITAL COURSE: Ms. Pak is a 58-year-old female with a history of depression, anxiety disorder, prior suicide attempts, and coronary artery disease who presented to the ER with a chief complaint of urinary retention and constipation. The patient was admitted to the hospitalist service, and a Barboza catheter was placed. A urinalysis was performed which was noted to be negative for infection. The patient was started on scheduled laxatives, and GI was consulted. With the initiation of laxative therapy, the patient started having bowel movements. Physical Therapy was consulted to assist with ambulation. After working with the patient , it was determined that she would benefit from a brief stay in an inpatient rehabilitation center. Tucking Machine Operator was consulted to assist with placement. At this time, the patient is medically stable for discharge to inpatient rehab. DISCHARGE MEDICATIONS: 1. Melatonin 6 mg p.o. at bedtime p.r.n. 2. Dulcolax 10 mg per rectum daily. 3. Cymbalta 30 mg p.o. daily. 4. Cozaar 25 mg p.o. daily. 5. MiraLAX 17 g oral twice a day. 6. Ranexa 500 mg p.o. twice a day. 7. Coreg 12.5 mg p.o. twice a day. 8. Brilinta 90 mg p.o. twice a day. 9. Lipitor 40 mg p.o. at bedtime. 10. Aspirin 81 mg p.o. daily. 11. Vitamin D3 1000 units oral daily. 12. Abilify 5 mg p.o. at bedtime. 13. Hydroxychloroquine 200 mg p.o. daily. 14. Remeron 15 mg p.o. at bedtime. DISCHARGE DIET: 1800 ADA diet. Low-sodium diet. ACTIVITY: As tolerated. FOLLOWUP INSTRUCTIONS: The patient will need to follow up with Dr. Garcia upon discharge from inpatient rehabilitation. cc: MD Dr. Radha Stevenson
[2018-11-25] MEDS: LIPITOR PO SCH (20:30)
[2018-11-25] MEDS: CYMBALTA PO SCH (20:30)
[2018-11-25] MEDS: REMERON PO SCH (20:31)
[2018-11-25] MEDS: ABILIFY PO SCH (20:31)
[2018-11-26 06:17] LABS: HEMOGLOBIN 10.2 g/dL (12.0-16.0); MCH 28.2 PG (27-31); MCHC 31.9 g/dL (33-37); MCV 88.4 FL (81-99); MPV 10.8 FL (7.4-10.4); RBC 3.62 XMIL (4.2-5.4); RDW 13.6 % (11.5-14.5); WBC 7.09 X1000 (4.8-10.8)
[2018-11-26 06:36] LABS: AGAP 7; BUN 8 mg/dL (8-22); CALCIUM 8.5 mg/dL (8.8-10.2); CHLORIDE 107 mmol/L (98-107); COSMO 276; CREATININE 0.8 mg/dL (0.5-0.9); ESTIMATED GFR > 60; GLUCOSE 102 mg/dL (70-104); MAGNESIUM 1.6 mg/dL (1.5-2.7); PHOSPHORUS 3.2 mg/dL (2.7-4.5); POTASSIUM 3.4 mmol/L (3.5-5.1); SODIUM 139 mmol/L (136-145); TCO2 25 mmol/L (25-35)
[2018-11-26] MEDS ORDERED: KLOR-CON PO ONE (07:02)
[2018-11-26] MEDS: LACTULOSE PO SCH ×2 (08:18→21:12)
[2018-11-26] MEDS: MIRALAX PO SCH ×2 (08:19→21:12)
[2018-11-26] MEDS: LOVENOX SUBQ SCH (08:19)
[2018-11-26] MEDS: DULCOLAX PR SCH (08:19)
[2018-11-26] MEDS: COZAAR PO SCH (08:20)
[2018-11-26] MEDS: BRILINTA PO SCH ×2 (08:21→21:11)
[2018-11-26] MEDS: COREG PO SCH ×2 (08:21→21:11)
[2018-11-26] MEDS: PLAQUENIL PO SCH (08:21)
[2018-11-26] MEDS: PERICOLACE PO SCH ×2 (08:22→21:12)
[2018-11-26] MEDS: PRILOSEC PO SCH ×2 (08:22→21:11)
[2018-11-26] MEDS: VITAMIN D PO SCH (08:22)
[2018-11-26] MEDS: RANEXA PO SCH ×2 (08:23→21:11)
--- NOTE | 2018-11-26 15:38 | GASTROENTEROLOGY PROGRESS NOTE ---
DATE: 11/26/2018 SUBJECTIVE: Patient is feeling better. She is having bowel movements. She has had her Barboza catheter removed, and she is urinating. I believe there is plan for her to go to outpatient rehabilitation. OBJECTIVE: Vital Signs: Temperature 98.5 degrees, pulse 95, respirations 18, blood pressure 152/80. General: Patient is awake and alert, in no acute distress. LABORATORY: Hematology: WBC 7.09, hemoglobin 10.2, hematocrit 32.0, MCV 88.4. Chemistry: Sodium 139, potassium 3.4, chloride 107, CO2 of 25, BUN 8, creatinine 0.8, glucose 102, calcium 8.5. ASSESSMENT AND PLAN: 1. Constipation has improved. Continue current laxative regimen. I have encouraged patient to continue laxatives at home to prevent constipation. 2. Urinary retention has improved. PLAN: Continue current management. I believe there are plans for her to go to rehabilitation. I have recommend she follow up with us in the office after discharge. She can follow up after her rehabilitation stay unless needed sooner. I have given her contact information to call and make an office visit. I have discussed this case with Dr. Fernandes. Dictated by TC Dutton for Clint Fernandes MD cc: TC Bonner MD
--- NOTE | 2018-11-26 18:47 | PROGRESS NOTE ---
DATE: 11/26/2018 SUBJECTIVE: The patient is resting comfortably in bed. No acute events noted overnight. OBJECTIVE: Vital Signs: Temperature 98.5, blood pressure 152/80, heart rate 95, respirations 18, O2 saturation 95% on room air. General: This is a chronically ill-appearing, elderly female, lying in bed in no acute distress. Heart: S1, S2 normal. Regular rate and rhythm. Lungs: Equal air entry bilaterally. No wheezing. No rales. No rhonchi. Abdomen: Positive bowel sounds. Soft, nontender, nondistended. Extremities: No edema. No cyanosis. Neurologic: The patient is alert and oriented x3. LABS: Potassium 3.4, glucose 102, magnesium 1.6, phosphorus 3.2. ASSESSMENT AND PLAN: 1. Constipation, resolved. The patient is having regular bowel movements. 2. Urinary retention. Resolved. 3. Anxiety disorder. Aware. 4. Major depression. Continue on Remeron. 5. Hypertension. Continue on Coreg. 6. Lupus. Continue on Plaquenil. 7. Deep vein thrombosis prophylaxis. Continue on Lovenox. 8. Disposition. The patient will be discharged to rehab once she has been cleared by the state. cc: Zoraida Carter MD
[2018-11-26] MEDS: CYMBALTA PO SCH (21:11)
[2018-11-26] MEDS: ABILIFY PO SCH (21:11)
[2018-11-26] MEDS: REMERON PO SCH (21:11)
[2018-11-26] MEDS: LIPITOR PO SCH ×2 (21:12→21:13)
[2018-11-27 07:34] LABS: AGAP 9; ALBUMIN 3.1 g/dL (3.5-5.0); BUN 9 mg/dL (8-22); CALCIUM 8.1 mg/dL (8.8-10.2); CHLORIDE 107 mmol/L (98-107); COSMO 282; CREATININE 0.8 mg/dL (0.5-0.9); ESTIMATED GFR > 60; GLUCOSE 95 mg/dL (70-104); MAGNESIUM 1.7 mg/dL (1.5-2.7); PHOSPHORUS 3.6 mg/dL (2.7-4.5); POTASSIUM 3.9 mmol/L (3.5-5.1); SODIUM 142 mmol/L (136-145); TCO2 26 mmol/L (25-35)
[2018-11-27] MEDS: DULCOLAX PR SCH (08:26)
[2018-11-27] MEDS: VITAMIN D PO SCH (08:27)
[2018-11-27] MEDS: LACTULOSE PO SCH ×2 (08:27→21:53)
[2018-11-27] MEDS: COZAAR PO SCH (08:27)
[2018-11-27] MEDS: PRILOSEC PO SCH ×2 (08:27→21:51)
[2018-11-27] MEDS: PLAQUENIL PO SCH (08:28)
[2018-11-27] MEDS: COREG PO SCH ×2 (08:28→21:51)
[2018-11-27] MEDS: PERICOLACE PO SCH ×3 (08:28→21:54)
[2018-11-27] MEDS: RANEXA PO SCH ×2 (08:28→21:51)
[2018-11-27] MEDS: BRILINTA PO SCH ×2 (08:28→21:51)
[2018-11-27] MEDS: MIRALAX PO SCH ×2 (08:29→21:53)
[2018-11-27] MEDS: LOVENOX SUBQ SCH (08:30)
--- NOTE | 2018-11-27 15:21 | GASTROENTEROLOGY PROGRESS NOTE ---
DATE: 11/27/2018 SUBJECTIVE: Ms. Pak is resting comfortably. She tells me she is feeling better. Has had regular bowel movements. She is no longer constipated. She is awaiting to be transferred to rehab. SUBJECTIVE: Vital Signs: Temperature 97.8 degrees, pulse 80 per minute, breathing 18, blood pressure 150/75 mmHg. Abdomen: Full, soft, nontender. Bowel sounds audible. LABORATORIES: Reviewed. IMPRESSION: Constipation, better. At this point, no new suggestions. Advised to follow up with me after discharge from rehab. Answered all of the pertinent questions. cc: Clint Fernandes MD
--- NOTE | 2018-11-27 15:47 | PROGRESS NOTE ---
DATE: 11/27/2018 SUBJECTIVE: The patient is resting comfortably in bed. She has no complaints. She is having regular bowel movements and eating her meals. OBJECTIVE: Vital Signs: Temperature 98.5 degrees, blood pressure 146/75, heart rate 69, respirations 20, O2 saturation is 98% on room air. General: This is an elderly female lying in bed, in no acute distress. Heart: S1, S2 normal. Regular rate and rhythm. Lungs: Equal air entry bilaterally. No crackles. No rales. Abdomen: Positive bowel sounds. Soft, nontender, nondistended. Extremities: No edema. No cyanosis. Neurologic: The patient is alert and oriented x3. LABS: Reviewed. ASSESSMENT AND PLAN: 1. Constipation. Resolved. Continue with scheduled laxative therapy. 2. Urinary retention. Resolved. 3. Anxiety disorder. Aware. 4. Major depression. Continue on Remeron. 5. Lupus. Continue on Plaquenil. 6. Hypertension. Continue on Coreg. 7. Deep vein thrombosis prophylaxis. Continue on Lovenox. 8. Disposition. Continue with physical therapy. Due to the patient's psychiatric issues, she requires clearance from the [facility] prior to being discharged to rehab. cc: Zoraida Carter MD
[2018-11-27] MEDS: ABILIFY PO SCH (21:51)
[2018-11-27] MEDS: LIPITOR PO SCH (21:51)
[2018-11-27] MEDS: REMERON PO SCH (21:51)
[2018-11-27] MEDS: FLOMAX PO SCH (22:03)
[2018-11-27] MEDS: CYMBALTA PO SCH (22:04)
[2018-11-28] MEDS: BRILINTA PO SCH ×2 (10:34→21:16)
[2018-11-28] MEDS: PLAQUENIL PO SCH (10:35)
[2018-11-28] MEDS: RANEXA PO SCH ×2 (10:35→21:16)
[2018-11-28] MEDS: VITAMIN D PO SCH (10:35)
[2018-11-28] MEDS: COREG PO SCH ×2 (10:35→21:16)
[2018-11-28] MEDS: LOVENOX SUBQ SCH (10:36)
[2018-11-28] MEDS: PRILOSEC PO SCH ×2 (10:36→21:13)
[2018-11-28] MEDS: PERICOLACE PO SCH ×2 (10:36→21:18)
[2018-11-28] MEDS: MIRALAX PO SCH ×2 (10:36→21:18)
[2018-11-28] MEDS: LACTULOSE PO SCH ×2 (10:37→21:18)
[2018-11-28] MEDS: COZAAR PO SCH (10:37)
[2018-11-28] MEDS: DULCOLAX PR SCH (10:37)
--- NOTE | 2018-11-28 14:35 | GASTROENTEROLOGY PROGRESS NOTE ---
DATE: 11/28/2018 SUBJECTIVE: Patient states she feels better. She is having bowel movements. They are waiting on details for rehab placement. OBJECTIVE: Vital Signs: Temperature 97.8 degrees, pulse 71, respirations 19, blood pressure 130/69. LABORATORY: Hematology: WBC 7.09, hemoglobin 10.2, hematocrit 32.0. Chemistry: Sodium 142, potassium 3.9, chloride 107, CO2 26. BUN 9, creatinine 0.8, glucose 95. ASSESSMENT AND PLAN: 1. Constipation has improved. Continue laxative regimen and adjust according to her response. 2. Urinary retention has resolved. Her Barboza catheter was removed. 3. Anxiety/depression. I believe she will be going to rehab. Recommend she follow up with us once out of rehab as an outpatient. I have given her our contact information. I have discussed this case with Dr. Fernandes. Dictated by TC Dutton for Clint Fernandes MD cc: TC Bonner MD
--- NOTE | 2018-11-28 16:08 | PROGRESS NOTE ---
DATE: 11/28/2018 SUBJECTIVE: The patient is resting comfortably in bed. No acute events noted overnight. OBJECTIVE: Vital Signs: Temperature 97.5 degrees, blood pressure 149/79, heart rate 85, respirations 18, O2 saturation 95% on room air. General: This is a chronically ill-appearing elderly female lying in bed in no acute distress. Heart: S1, S2 normal. Regular rate and rhythm. Lungs: Clear to auscultation bilaterally. No wheezing, no rales, no rhonchi. Abdomen: Positive bowel sounds. Soft, nontender, nondistended. Extremities: No edema, no cyanosis. Neuro: The patient is alert and oriented x3. LABS: None. ASSESSMENT AND PLAN: 1. Constipation. Resolved. Continue with scheduled laxative therapy. 2. Urinary retention. Resolved. 3. Major depression. Continue on Remeron. 4. Anxiety disorder. Aware. 5. Lupus. Continue on Plaquenil. 6. Hypertension controlled. Continue on Coreg. 7. Deep vein thrombosis prophylaxis. Continue on Lovenox. 8. Disposition. The patient will be discharged to [facility] once the patient has been cleared by the [facility]. cc: Zoraida Carter MD MTDD
[2018-11-28] MEDS: ABILIFY PO SCH (21:14)
[2018-11-28] MEDS: LIPITOR PO SCH (21:15)
[2018-11-28] MEDS: FLOMAX PO SCH (21:17)
[2018-11-28] MEDS: REMERON PO SCH (21:17)
[2018-11-28] MEDS: CYMBALTA PO SCH (21:32)
[2018-11-28] MEDS ORDERED: CALMOSEPTINE OINTMENT TOP PRN (22:11)
[2018-11-29] MEDS: RANEXA PO SCH ×2 (09:19→20:11)
[2018-11-29] MEDS: BRILINTA PO SCH ×2 (09:20→20:11)
[2018-11-29] MEDS: DULCOLAX PR SCH (09:20)
[2018-11-29] MEDS: PRILOSEC PO SCH ×2 (09:20→20:11)
[2018-11-29] MEDS: VITAMIN D PO SCH (09:20)
[2018-11-29] MEDS: PLAQUENIL PO SCH (09:20)
[2018-11-29] MEDS: COREG PO SCH ×2 (09:20→20:12)
[2018-11-29] MEDS: COZAAR PO SCH (09:20)
[2018-11-29] MEDS: LOVENOX SUBQ SCH (09:21)
[2018-11-29] MEDS: PERICOLACE PO SCH (09:21)
[2018-11-29] MEDS: MIRALAX PO SCH (09:21)
[2018-11-29] MEDS: LACTULOSE PO SCH (09:21)
[2018-11-29] MEDS ORDERED: FLOMAX PO SCH (14:03)
[2018-11-29] MEDS ORDERED: PERICOLACE PO PRN (14:09)
[2018-11-29] MEDS ORDERED: LACTULOSE PO PRN (14:10)
[2018-11-29] MEDS ORDERED: MIRALAX PO PRN (14:11)
[2018-11-29] MEDS ORDERED: DULCOLAX PO PRN (14:12)
[2018-11-29] MEDS: CYMBALTA PO SCH (20:11)
[2018-11-29] MEDS: ABILIFY PO SCH (20:11)
[2018-11-29] MEDS: REMERON PO SCH (20:11)
[2018-11-29] MEDS: LIPITOR PO SCH (20:11)
--- NOTE | 2018-11-29 20:35 | PROGRESS NOTE ---
DATE: 11/29/2018 SUBJECTIVE: The patient is resting comfortably in bed. She complains of urinary retention. OBJECTIVE: Vital Signs: Temperature 98.3 degrees, blood pressure 146/80, heart rate 77, respirations 18, O2 saturation 95% on room air. General: This is a elderly female lying in bed in no acute distress. Heart: S1, S2 normal. Regular rate and rhythm. Lungs: Clear to auscultation bilaterally. Abdomen: Positive bowel sounds. Soft, nontender, nondistended. Extremities: No edema, no cyanosis. Neuro: The patient is alert and oriented x3. ASSESSMENT: 1. Constipation. Resolved. 2. Urinary retention. The patient was noted to be retaining 300 mL of urine. Will adjust the Flomax dosage and monitor for improvement. 3. Major depression. Continue on Remeron. 4. Anxiety disorder. Aware. 5. Lupus. Continue on Plaquenil. 6. Hypertension. Controlled. Continue on Coreg. 7. Deep vein thrombosis prophylaxis. Continue on Lovenox. cc: Zoraida Carter MD MTDD
[2018-11-30 06:53] LABS: HEMATOCRIT 33.6 % (37.0-47.0); HEMOGLOBIN 10.7 g/dL (12.0-16.0); MCH 28.2 PG (27-31); MCHC 31.8 g/dL (33-37); MCV 88.7 FL (81-99); MPV 10.2 FL (7.4-10.4); RBC 3.79 XMIL (4.2-5.4); RDW 13.7 % (11.5-14.5); WBC 5.4 X1000 (4.8-10.8)
[2018-11-30 07:26] LABS: AGAP 11; BUN 10 mg/dL (8-22); CALCIUM 8.5 mg/dL (8.8-10.2); CHLORIDE 104 mmol/L (98-107); COSMO 284; CREATININE 0.9 mg/dL (0.5-0.9); ESTIMATED GFR > 60; GLUCOSE 123 mg/dL (70-104); POTASSIUM 3.6 mmol/L (3.5-5.1); SODIUM 142 mmol/L (136-145); TCO2 27 mmol/L (25-35)
[2018-11-30] MEDS ORDERED: FLOMAX PO SCH (09:00)
[2018-11-30] MEDS: COREG PO SCH ×2 (09:40→21:29)
[2018-11-30] MEDS: RANEXA PO SCH ×2 (09:40→21:29)
[2018-11-30] MEDS: PLAQUENIL PO SCH (09:40)
[2018-11-30] MEDS: LOVENOX SUBQ SCH (09:40)
[2018-11-30] MEDS: VITAMIN D PO SCH (09:40)
[2018-11-30] MEDS: FLOMAX PO SCH (09:40)
[2018-11-30] MEDS: PRILOSEC PO SCH ×2 (09:40→21:29)
[2018-11-30] MEDS: BRILINTA PO SCH ×2 (09:40→21:29)
[2018-11-30] MEDS: COZAAR PO SCH (09:41)
--- NOTE | 2018-11-30 18:43 | PROGRESS NOTE ---
DATE: 11/30/2018 SUBJECTIVE: The patient is complaining of urinary retention and inability to control her bowels. OBJECTIVE: Vital Signs: Temperature 98 degrees, blood pressure 153/78, heart rate 81, respirations 18, O2 saturation is 96% on room air. General: This is an elderly female sitting in a chair, in no acute distress. Heart: S1, S2 normal. Regular rate and rhythm. Lungs: Equal air entry bilaterally. No crackles. No rales. Abdomen: Positive bowel sounds. Soft, nontender, nondistended. Extremities: No edema. No cyanosis. Neurologic: The patient is alert and oriented x3. LABS: Reviewed. ASSESSMENT AND PLAN: 1. Urinary retention. The patient is retaining anywhere from 300 to 500 mL of urine. We will place a Barboza catheter and consult Urology. Continue on flomax. 2. Bowel incontinence. We will order an MRI of the lumbar spine and consult with Neurology. 3. Constipation. Improved. Continue with laxative therapy. 4. Major depression. Continue on Remeron. 5. Lupus. Stable. Continue on Plaquenil. 6. Anxiety disorder. Aware. 7. Hypertension. Controlled. Continue on Coreg. 8. Deep vein thrombosis prophylaxis. Continue on Lovenox. 9. Disposition. Continue with physical therapy. cc: Zoraida Carter MD MTDD
[2018-11-30] MEDS: ABILIFY PO SCH (21:29)
[2018-11-30] MEDS: REMERON PO SCH (21:29)
[2018-11-30] MEDS: CYMBALTA PO SCH (21:29)
[2018-11-30] MEDS: LIPITOR PO SCH (21:29)
[2018-11-30 23:21] LABS: URINE SOURCE CATH
[2018-11-30 23:59] LABS: BILIRUBIN URINE NEGATIVE (NEGATIVE); BLOOD URINE NEGATIVE (NEGATIVE); COLOR YELLOW; GLUCOSE URINE TRACE mg/dL (NEGATIVE); KETONE URINE NEGATIVE (NEGATIVE); LEUKOCYTES URINE NEGATIVE (NEGATIVE); NITRITE URINE NEGATIVE (NEGATIVE); PH URINE 6.5; PROTEIN URINE NEGATIVE (NEGATIVE); SP GRAVITY URINE 1.002; TURBIDITY URINE CLEAR (CLEAR); UR EPITHELIAL CELLS <10 /HPF (<10); URINE BACTERIA NEGATIVE /HPF; URINE RBC <10 /HPF (<10); URINE WBC <10 /HPF (<10); UROBILINOGEN URINE NORMAL (NORMAL)
[2018-12-01 07:20] LABS: HEMOGLOBIN 10.9 g/dL (12.0-16.0); MCH 28.2 PG (27-31); MCHC 32.1 g/dL (33-37); MCV 88.1 FL (81-99); MPV 10.4 FL (7.4-10.4); RBC 3.86 XMIL (4.2-5.4); RDW 13.5 % (11.5-14.5); WBC 5.7 X1000 (4.8-10.8)
[2018-12-01 07:47] LABS: AGAP 10; BUN 9 mg/dL (8-22); CALCIUM 8.6 mg/dL (8.8-10.2); CHLORIDE 105 mmol/L (98-107); COSMO 284; CREATININE 0.8 mg/dL (0.5-0.9); ESTIMATED GFR > 60; GLUCOSE 113 mg/dL (70-104); POTASSIUM 3.3 mmol/L (3.5-5.1); SODIUM 143 mmol/L (136-145); TCO2 28 mmol/L (25-35)
[2018-12-01] MEDS ORDERED: KLOR-CON PO ONE (07:50)
[2018-12-01] MEDS: VITAMIN D PO SCH (09:42)
[2018-12-01] MEDS: RANEXA PO SCH ×2 (09:42→20:02)
[2018-12-01] MEDS: COREG PO SCH ×2 (09:43→20:02)
[2018-12-01] MEDS: BRILINTA PO SCH ×2 (09:43→20:02)
[2018-12-01] MEDS: FLOMAX PO SCH (09:43)
[2018-12-01] MEDS: PRILOSEC PO SCH ×2 (09:43→20:02)
[2018-12-01] MEDS: COZAAR PO SCH (09:43)
[2018-12-01] MEDS: LOVENOX SUBQ SCH (09:43)
[2018-12-01] MEDS: PLAQUENIL PO SCH (09:43)
[2018-12-01] MEDS ORDERED: ATIVAN IV ONE (16:07)
--- NOTE | 2018-12-01 17:51 | Diag Imaging Result Doc PS360 ---
EXAM: MRI BRAIN W/WO CONTRAST 12/01/2018 HISTORY: stroke TECHNIQUE: T1 sagittal, axial and post gadolinium enhanced axial with coronal reformatted images. T2, FLAIR, DWI axial and coronal gradient echo. COMMENT: There are no previous MRI studies. There is no evidence of mass effect, bleed, abnormal extra-axial fluid collection, there is no evidence of restricted diffusion. There is no evidence of abnormal gadolinium enhancement. IMPRESSION: Normal MRI of the brain. Electronically signed by Errol Mcguire 12/01/2018 5:48 PM
--- NOTE | 2018-12-01 18:03 | Diag Imaging Result Doc PS360 ---
EXAM: MRI CERVICAL SPINE W/O CON 12/01/2018 HISTORY: radiculopathy TECHNIQUE: T1 and T2 and STIR sagittal, T1 and T2 axial. COMMENT: There is no evidence of bone marrow edema. There is no evidence of intrathecal mass or signal abnormality. There are no previous studies. At the C2-3 level there is no spinal or foraminal stenosis. At C3-4 there is narrowing of the right foramen but no spinal stenosis. At C4-5 there is no evidence of spinal or foraminal stenosis. At C5-6 there is narrowing of the left foramen but no spinal stenosis. At C6-7 there is posterior disc protrusion without evidence of spinal or foraminal stenosis. At C7-T1 there is no evidence of spinal or foraminal stenosis. IMPRESSION: Foraminal stenosis as described above. No evidence of spinal stenosis. Electronically signed by Errol Mcguire 12/01/2018 6:01 PM
--- NOTE | 2018-12-01 18:06 | Diag Imaging Result Doc PS360 ---
EXAM: MRI LUMBAR SPINE W/WO CONTRAST 12/01/2018 HISTORY: back pain with bowel incontinence TECHNIQUE: T1-T2 and STIR sagittal, T1 and T2 axial, T1 axial and fat suppressed sagittal postcontrast. COMMENT: There is no evidence of abnormal gadolinium enhancement. There is no evidence of abnormal bone marrow signal. No intrathecal masses or signal abnormalities are present. There is some disc desiccation at the L1-2, L4-5 and L5-S1 levels. At the L1-2 level there is mild disc bulge without evidence of spinal or foraminal stenosis. At L2-3 there is no spinal or foraminal stenosis. At L3-4 there is no spinal or foraminal stenosis. At L4-5 there is central disc bulge without evidence of spinal or foraminal stenosis. At L5-S1 there is no spinal or foraminal stenosis. IMPRESSION: Mild degenerative disc disease without evidence of spinal or foraminal stenosis. Electronically signed by Errol Mcguire 12/01/2018 6:04 PM
--- NOTE | 2018-12-01 18:37 | PROGRESS NOTE ---
DATE: 12/01/2018 SUBJECTIVE: The patient is resting comfortably in bed. A Barboza catheter was placed yesterday due to urinary retention. The patient reports that she still feels numbness and tingling in her lower extremities. OBJECTIVE: Vital Signs: Temperature 97.9, blood pressure 141/71, heart rate 77, respirations 16. O2 sats 94% on room air. General: This is an elderly female lying in bed in no acute distress. Heart: S1, S2 normal. Regular rate and rhythm. Lungs: Equal air entry bilaterally. No crackles. No rales. Abdomen: Positive bowel sounds. Soft, nontender, nondistended. Extremities: No edema, no cyanosis. No calf tenderness. Neurologic: The patient is alert and oriented x 3. No focal neurologic deficits noted. LABS: Sodium 143, potassium 3.3, chloride 105, CO2 29, BUN 9, creatinine 0.8, glucose 113. White blood cell count 5.7, hemoglobin 10, hematocrit 34, platelets 254,000. MRI of the lumbar spine revealed mild degenerative disk disease. Brain MRI was normal. Cervical spine MRI revealed foraminal stenosis. ASSESSMENT AND PLAN: 1. Urinary retention. The patient currently has a Barboza catheter in place. She is also on Flomax. We will consult with Urology for further assistance. 2. Bowel incontinence. The patient reports that this is a new finding. Her MRIs were unremarkable. Will await further recommendations from the neurologist. 3. Major depression. Continue on Remeron. 4. Lupus. Stable. Continue on Plaquenil. 5. Anxiety disorder. Aware. 6. Hypertension. Continue on Coreg. 7. DVT prophylaxis. Continue on Lovenox. 8. Disposition. We are currently awaiting the state evaluation before the patient can be discharged to inpatient rehab. Continue with physical therapy. cc: Zoraida Carter MD
[2018-12-01] MEDS: ABILIFY PO SCH (20:02)
[2018-12-01] MEDS: CYMBALTA PO SCH (20:02)
[2018-12-01] MEDS: LIPITOR PO SCH (20:02)
[2018-12-01] MEDS: REMERON PO SCH (20:02)
--- NOTE | 2018-12-01 20:36 | CONSULTATION ---
DATE OF CONSULTATION: 12/01/2018 CHIEF COMPLAINT: Urinary retention. HISTORY OF PRESENT ILLNESS: Ms. Pak is a 58-year-old who presents today in consultation regarding urinary retention. Looking in the patient's record the patient has presented twice to the emergency room over the past 3 weeks with urinary retention. She presented to [place] and had a Barboza catheter inserted which was removed. The patient continued to have issues with urination and re-presented to the emergency room on 11/18/2018. Was treated for chronic constipation and urinary retention. The patient was seen by GI medicine who recommended a strenuous bowel regiment with has helped her have regular bowel movement. However she continued have episodes of urinary retention. Multiple bladder scans have been performed which showed large volume in the bladder typically greater than 400 mL. She states that prior to the middle of October she was not having any issues with urination. She does say that she was previously seen by urologist for recurrent urinary tract infections but that was a number of years ago. Looking at imaging it appears the patient had a renal ultrasound as well as a CT scan of the abdomen and pelvis which both showed a very distended large bladder. Patient has a history of neuropathy as well as the longstanding type 2 diabetes. Patient overall feels that she is having better bowel movements however she states now that she has minimal to no sensation of when she needs to have a bowel movement. She went to have an MRI done today to assess for etiology of neurologic change, MRI lumbar and head were done which were all negative for other significant etiology leading to her bladder and bowel symptoms. Patient currently has indwelling catheter in draining clear yellow urine. She denies any pain. She does state she has had some prior urinary tract infection. She denies any pelvic organ prolapse, denies any surgeries on the pelvis previously. She does say that at one point that her bladder was so full that it was a mass in her lower suprapubic region she says when the catheter inserted this went away . PAST SURGICAL HISTORY: 1. Cardiac stents x2 in July 2018. 2. section. 3. Bilateral cataracts. PAST MEDICAL HISTORY: 1. Depression, anxiety. 2. Type 2 diabetes. 3. Coronary artery disease status post stent placement. 4. Hypertension. 5. Hyperlipidemia. 6. Lupus. 7. Gastroesophageal reflux disease . 8. Diabetic neuropathy. 9. Diabetic retinopathy. 10. Osteoarthritis . ALLERGIES: 1. Aspirin-bleeding. 2. Clindamycin. 3. Latex. 4. Bactrim. HOME MEDICATIONS: 1. Abilify 5 mg nightly. 2. Lipitor 40 mg. 3. Carvedilol 6.25 mg b.i.d. 4. Vitamin D 3 daily. 5. Ciprofloxacin 500 mg b.i.d. 6. Cymbalta 30 mg nightly. 7. Hydrochloroquine sulfate 200 mg daily. 8. Flagyl 500 mg t.i.d. 9. Remeron 50 mg every night. 10. Ranexa 500 mg b.i.d. 11. Brilinta 1 tablet b.i.d. SOCIAL HISTORY: Denies tobacco or alcohol use. FAMILY HISTORY: Denies family history malignancy. REVIEW OF SYSTEMS: A complete review of systems performed with all pertinent positives and negatives in HPI. Patient does describe approximately 25 pound weight loss over the past 2 to 3 months, persistent constipation with irregular bowel movements which have improved with vigorous bowel stimulation, patient's urinary retention. Denies chest pain, shortness of breath, fevers or chills. PHYSICAL EXAMINATION: Vital Signs: Temperature 97.9 degrees, heart rate 77, blood pressure 141/71, oxygen saturation 94% on room air. General: No acute distress resting comfortably in bed alert and oriented x3. HEENT: Normocephalic, atraumatic. Pupils equal, round, reactive to light. Mucous membranes moist . Neck: Trachea midline. No palpable masses. Respiratory: Good respiratory effort without audible wheezing or rales. Cardiovascular: No evidence of lower extremity edema. Abdomen: Soft, nontender, nondistended, no palpable masses. No prior surgical scars. : Urethral catheter in place with clear yellow urine. Pelvic: Showed normal pelvic anatomy and perineum, no evidence of any cystocele. The meatus is normal with catheter in place. No palpable urethral masses. No evidence of vaginal atrophy. No palpable adnexal masses or adnexal tenderness. Good support present. Stool present in patient's Depends . Neurologic: Gross motor intact, decreased sensation in lower extremities . Musculoskeletal: Moving all extremities without a defect . Skin: No obvious skin rashes or lesions LABS: White blood cell count 5.7, hemoglobin 10.9, hematocrit 34.0, platelets 254,000, sodium 143, potassium 3.3, chloride 105, bicarb 28, BUN 9, creatinine 0.8, glucose 113, calcium 8.6. ASSESSMENT AND PLAN: Ms. Pak is a 58-year-old with anxiety and depression, type 2 diabetes, coronary artery disease status post coronary stents, hypertension, hyperlipidemia, lupus, gastroesophageal reflux disease, diabetic neuropathy, diabetic retinopathy and osteoarthritis who presents in evaluation for urinary retention, with review of the records it seems that the patient has been dealing with this for least the past 3 weeks . She has had catheters put in and taken out but continues with urine retention and currently has an indwelling catheter. Reviewing imaging studies she has had a CT scan of the abdomen as well as a abdominal ultrasound which showed a significantly distended bladder with no evidence of any obvious bladder lesion. Patient does describe changes in her bowel habits with inability to feel that she needs have a bowel movement. The patient has significant neuropathy which could be interfering with the function of her bladder. The patient is being evaluated by Neurology and had MRIs today which were negative for acute issues for her change in bowel habits, lower extremity numbness and change in her urinary patterns. No obvious pelvic organ prolapse was seen today on pelvic exam, patient does have indwelling catheter in place. I think that patient's comorbidities are likely leading to her urinary retention as no obvious etiologies were seen MRI today. I would recommend continue indwelling catheter at this time and likely keep for at least 1 week and then attempt another voiding trial. I think ultimately patient has diabetic cystopathy likely related to longstanding uncontrolled diabetes, patient states her A1c had been significantly elevated in the past which could have led to long-term neuropathy of the bladder and colon as well as her underlying lower extremity diabetic nephropathy. Will continue to monitor, continue vigorous bowel regimen as patient did have significant constipation which can definitely lead to urinary retention. Patient continues to have issues with retention would have to consider urodynamics versus long- term indwelling urethral or suprapubic catheter. cc: Bryant Maurice MD [facility] CENTERFel[facility]
[2018-12-02 06:42] LABS: HEMATOCRIT 32.5 % (37.0-47.0); HEMOGLOBIN 10.4 g/dL (12.0-16.0); MCH 28.3 PG (27-31); MCV 88.3 FL (81-99); MPV 10.6 FL (7.4-10.4); RBC 3.68 XMIL (4.2-5.4); RDW 13.6 % (11.5-14.5); WBC 6.26 X1000 (4.8-10.8)
[2018-12-02 07:07] LABS: AGAP 10; BUN 11 mg/dL (8-22); CALCIUM 8.3 mg/dL (8.8-10.2); CHLORIDE 103 mmol/L (98-107); COSMO 280; CREATININE 0.8 mg/dL (0.5-0.9); ESTIMATED GFR > 60; GLUCOSE 117 mg/dL (70-104); POTASSIUM 3.3 mmol/L (3.5-5.1); SODIUM 140 mmol/L (136-145); TCO2 27 mmol/L (25-35)
[2018-12-02] MEDS: RANEXA PO SCH ×2 (09:35→22:06)
[2018-12-02] MEDS: VITAMIN D PO SCH (09:35)
[2018-12-02] MEDS: LOVENOX SUBQ SCH (09:35)
[2018-12-02] MEDS: FLOMAX PO SCH (09:35)
[2018-12-02] MEDS: BRILINTA PO SCH ×2 (09:35→22:06)
[2018-12-02] MEDS: COREG PO SCH ×2 (09:35→22:06)
[2018-12-02] MEDS: COZAAR PO SCH (09:35)
[2018-12-02] MEDS: PRILOSEC PO SCH ×2 (09:35→22:06)
[2018-12-02] MEDS: PLAQUENIL PO SCH (09:39)
[2018-12-02] MEDS ORDERED: ATIVAN IV ONE (10:40)
--- NOTE | 2018-12-02 13:04 | Diag Imaging Result Doc PS360 ---
MRI CERVICAL SPINE W/CONTRAST - 12/02/2018 INDICATION: numb/weak, w/ bowel/bladder involvement, COMPARISON: Noncontrast MRI 12/01/2018 FINDINGS: There is no abnormal contrast enhancement. There are no additional findings. IMPRESSION: No additional findings. Electronically signed by Alexis Colon 12/02/2018 1:02 PM
--- NOTE | 2018-12-02 13:05 | CONSULTATION ---
DATE OF CONSULTATION: 12/02/2018 REASON FOR CONSULTATION: Neuropathy and bowel incontinence. HISTORY OF PRESENT ILLNESS: This is a 58-year-old right-handed female with history of diabetes, depression and anxiety, and reported lupus. She was admitted on 11/18/2018 with urinary retention. History is from the patient. She reports having neuropathy in her legs and hands for at least over a year now. Those symptoms were not affecting her daily life, however, until maybe somewhere around 2 months ago. She reports numbness and tingling with some prickly burning sensation involving the feet up to the calves and also involving her fingers on both hands. In the last couple of months, the sensations have become more intense, but they have not traveled proximally. Also around 2 months or so, she began having urinary retention, and she also reports bowel incontinence. At times her stool is loose, but not always. Sometimes she does better than other times, so her symptoms do somewhat fluctuate. She began using a cane around 5 months ago, she later reports, and began using a walker more recently. She has had a couple of falls, most recently 2 weeks ago. She denies new onset back pain but does endorse a sense of a crick in her neck for a while now. She denies other neurologic symptoms. No shortness of breath or chest pain. She has had some abdominal pain and relates that to bladder distention which was relieved. The patient was admitted. She had a Barboza catheter. She had apparently done okay, and there was a plan for discharge days ago, but due to her psychiatric issues, she requires clearance from the [facility] before being discharged to rehab. During her subsequent days here, her urinary retention has returned, and some adjustments to medications have been made. She reports she has been overall tired, not eating or drinking much, and has lost some weight in recent months. She says her insulin was discontinued because her blood sugars are now doing better than they were in the past. PAST MEDICAL HISTORY: 1. Diabetes, reports previously poorly controlled but more controlled recently with weight loss. 2. Depression and anxiety. 3. Suicide attempt via overdose in 2018. She was at [facility]. 4. Insomnia. 5. Coronary artery disease with 2 stents placed in 07/2018. 6. Hypertension. 7. Hypercholesterolemia. 8. Reported lupus, uncertain if discoid or systemic. 9. GERD. 10.Reported diabetic neuropathy. 11.Chronic kidney disease. 12.Diabetic retinopathy. 13.History of cataracts. FAMILY HISTORY: Her brother committed suicide. SOCIAL HISTORY: She lives alone. Her in 11/2016. She has children that check on her. No tobacco, alcohol or illicits. ALLERGIES: Multiple listed in the chart and reviewed. CURRENT MEDICATIONS: Reviewed in the chart and include Ability, Lipitor, Dulcolax, Coreg, Cymbalta, Plaquenil, lactulose p.r.n., Cozaar, melatonin, Remeron, Zofran p.r.n., Prilosec, MiraLAX p.r.n., Ranexa, Zaira-Colace p.r.n., Flomax, Brilinta. REVIEW OF SYSTEMS: A balance of 12 was conducted and is otherwise negative except that detailed in the HPI. PHYSICAL EXAMINATION: Vital signs: She has been afebrile during her stay. Blood pressure is 137/85, pulse 70s, respirations 20, saturation 97% on room air. Ms. Pak is supine in bed, awake, alert, attentive. She follows simple and complex commands. She is oriented. No language disturbance. No dysarthria. Pupils are equal and reactive. Gaze conjugate. Extraocular movements are full. Face symmetric with equal activation. Facial sensation intact. Tongue is midline. Full shoulder shrug. No drift. There is mild, very distal weakness involving germán EHL and remaining toes, bilateral trimmer meat strength and right side long finger flexors/extensors. Reflexes are diminished, symmetric throughout, 1+ at the biceps bilaterally. No clonus. Plantar response is silent bilaterally. She reports length dependent loss to all modalities up to the upper calves bilaterally and symmetrically. She reports preserved sensation to pinprick in the hands and digits bilaterally. Reported sensory responses to pinprick on the back and buttock region are inconsistent. She more consistently reports reduced sensation in the lower abdomen compared to the upper bilaterally. I did not test her gait. DIAGNOSTIC DATA: MRI of the brain with and without contrast personally reviewed, no acute findings. MRI of the cervical spine without contrast with foraminal stenosis with narrowing at the right foramen C3-C4 and left foramen C5-C6. No spinal stenosis. Lumbar spine MRI with and without contrast showing mild degenerative disk disease without evidence of spinal or foraminal stenosis. White count normal. Sedimentation rate normal. Sodium, BUN and creatinine normal. Blood sugar 110s to 160s. CRP normal. Urinalysis normal. C3 and C4 normal. ASSESSMENT AND PLAN: Reports of distal numbness and weakness with urinary retention and bowel incontinence ongoing for some time now in a patient with longstanding diabetes. This may be diabetic autonomic neuropathy, but given the possible sensory level, we need to rule out a spinal cord process. Imaging yesterday is noted, and I will order thoracic imaging today as well as cervical imaging with the addition of contrast. Further recommendations pending imaging results. Thank you for the consultation. cc: Luci Adams MD MTDD
--- NOTE | 2018-12-02 13:08 | Diag Imaging Result Doc PS360 ---
MRI THORACIC SPINE W/WO CON - 12/02/2018 INDICATION: numb,weak with bowel/bladder involvement COMPARISON: None FINDINGS: Alignment is anatomic. Vertebral body heights are preserved. Disc spaces are fairly well preserved. The thoracic cord is normal in signal. There is no mass or fluid collection. No abnormal contrast enhancement. At T8-T9 there is a small posterior disc bulge. There is mild central canal stenosis. No neural foraminal stenosis. The conus appears normal. IMPRESSION: Posterior disc bulge with mild central canal stenosis at T8-T9. No severe central canal stenosis. Electronically signed by Alexis Colon 12/02/2018 1:06 PM
[2018-12-02] MEDS ORDERED: KLOR-CON PO ONE (15:16)
--- NOTE | 2018-12-02 15:35 | PROGRESS NOTE ---
DATE: 12/02/2018 SUBJECTIVE: The patient resting in bed. The patient is seated on the chair not in any obvious distress. OBJECTIVE: Vital Signs: Temperature 98 degrees, pulse 79, respirations 20, blood pressure 137/85 and oxygen saturation 97%. HEENT: Atraumatic and normocephalic. Cardiovascular: S1, S2. Respiratory: Evidence of good air entry bilaterally. Extremities: 1+ edema in the lower extremities. Central nervous system: No obvious focal deficits. LABORATORY: WBC 6.26, hematocrit 32.5 with a platelet count of 247. Sodium is 140, potassium 3.3, chloride is 103, bicarb 27, BUN 11, and creatinine 0.8. ASSESSMENT AND PLAN: 1. Urinary retention. Maintain patient on Barboza catheter. Continue Flomax. Urology consulted. 2. Bowel incontinence. This may be secondary to diabetic autonomic neuropathy especially in light of urinary retention. MRI of her lumbar spine does not reveal any significant spinal or foraminal stenosis. MRI of the cervical as well as thoracic spine does not show any significant lesions to explain symptoms. The patient is being followed up by the Neurology team. 3. Anemia. We will replace potassium level and check magnesium level. 4. Anemia. We will check serum iron studies as well as a B12 and also folate level. Check stool for occult blood. 5. Hypokalemia. We will check magnesium level and replace potassium level. 6. Anxiety with depression. Continue with psychiatric medications. 7. Lupus. Continue Plaquenil. 8. Hypertension. Continue current antihypertensive regimen. 9. Deep vein thrombosis prophylaxis. Lovenox. 10. Gastrointestinal prophylaxis. Proton pump inhibitor. 11. Disposition. The patient is waiting for placement. She prefers [facility]. cc: Kaushik Forbes MD [facility]
[2018-12-02] MEDS: HUMULIN R SUBQ SCH ×2 (17:26→22:07)
--- NOTE | 2018-12-02 18:54 | PROGRESS NOTE ---
DATE: 12/02/2018 SUBJECTIVE: No acute events overnight. The patient is resting comfortably in bed. Her urethral catheter continues to drain well with 2.1 L recorded yesterday. The patient has had multiple bowel movements. The patient went down for another MRI today of the thoracic and cervical spine which were relatively normal per imaging reports. The patient also consulted on by Neurology. SUBJECTIVE: Temperature 98 degrees, oxygen saturation 97% on room air, pulse rate 79, blood pressure 137/85.General: No acute distress. Resting comfortably in bed, alert and oriented x3. Respiratory: Good respiratory effort without audible wheezing or rales. Abdomen: Soft, nontender, nondistended. No palpable masses. : Urethral catheter in place draining clear yellow urine. Musculoskeletal: Moving all extremities. Skin: No obvious skin rashes or lesions. LABS: White blood cell count 6.23, hemoglobin 10.2, hematocrit 32.5, platelets 247,000, sodium 140, potassium 3.3, chloride 103, bicarb 27, BUN 11, creatinine 0.8, glucose 117. ASSESSMENT PLAN: Ms. Pak is a 58-year-old with anxiety, depression, type 2 diabetes, coronary artery disease status post coronary stents, hypertension, hyperlipidemia, lupus, gastroesophageal reflux disease, diabetic neuropathy, diabetic retinopathy and osteoarthritis who presents in evaluation regarding urinary retention. The patient has had a long history of urinary retention over the past several weeks with multiple imaging studies showing very distended bladder. Patient also has bowel changes as well as changes in her lower extremity sensation. I think overall she is showing evidence of autonomic neuropathy likely leading her bladder and bowels. The patient has had multiple bowel movements and seems to be having decreased sensation of when her bowels are full and needs to have a bowel movement. I think a lot of this is related to longstanding diabetes. We will continue with indwelling catheter at this time. Has had multiple MRIs which have all been negative for etiologies of spinal stenosis or masses leading to her symptoms. Will continue with indwelling catheter for at least a week and attempt a voiding trial at that time. If patient continues to have issues with urination would consider suprapubic tube versus chronic indwelling catheter. I think patient would be unable to perform clean intermittent catheterization on her own. Will broach urinary drainage if continues to have issues with urinary retention in followup. cc: Bryant Maurice MD [facility]
[2018-12-02] MEDS: LIPITOR PO SCH (22:06)
[2018-12-02] MEDS: CYMBALTA PO SCH (22:06)
[2018-12-02] MEDS: REMERON PO SCH (22:06)
[2018-12-02] MEDS: ABILIFY PO SCH (22:06)
[2018-12-03] MEDS: HUMULIN R SUBQ SCH ×4 (06:33→23:45)
[2018-12-03 06:37] LABS: AGAP 9; BUN 11 mg/dL (8-22); CALCIUM 8.6 mg/dL (8.8-10.2); CHLORIDE 104 mmol/L (98-107); COSMO 282; CREATININE 0.8 mg/dL (0.5-0.9); ESTIMATED GFR > 60; GLUCOSE 122 mg/dL (70-104); MAGNESIUM 1.7 mg/dL (1.5-2.7); POTASSIUM 3.6 mmol/L (3.5-5.1); SODIUM 141 mmol/L (136-145); TCO2 28 mmol/L (25-35)
[2018-12-03] MEDS: BRILINTA PO SCH ×2 (10:10→20:02)
[2018-12-03] MEDS: COZAAR PO SCH (10:10)
[2018-12-03] MEDS: PLAQUENIL PO SCH (10:10)
[2018-12-03] MEDS: COREG PO SCH ×2 (10:10→20:02)
[2018-12-03] MEDS: VITAMIN D PO SCH (10:10)
[2018-12-03] MEDS: RANEXA PO SCH ×2 (10:10→20:01)
[2018-12-03] MEDS: FLOMAX PO SCH (10:11)
[2018-12-03] MEDS: LOVENOX SUBQ SCH (10:11)
[2018-12-03] MEDS: PRILOSEC PO SCH ×2 (10:11→20:02)
--- NOTE | 2018-12-03 12:42 | PROGRESS NOTE ---
DATE: 12/03/2018 SUBJECTIVE: Dr. Adams saw Ms. Pak for initial neurology evaluation. Today, Ms. Pak told me she has had numbness in the feet for several years, gradually becoming more prominent with occasional burning and stinging. She has noticed similar numbness in the hands over the last year or so. She has noticed some numbness across her belly for at least several months. She reports unsteady gait and she fell about a month ago just after she turned to turn off phone. When she walks, she feels "like I am walking on air pockets." She reports loss of bowel/bladder control over the last few weeks, but she has been wearing pads for several months. Workup has included extensive imaging including MRI of the brain with and without contrast, lumbosacral spine with and without contrast, thoracic spine with and without contrast, cervical spine without contrast and later with contrast. These have all been unremarkable showing typical age-related and expected degenerative changes, but nothing acute and nothing to explain her complaints. Blood sugars have been 110s-160s. OBJECTIVE: On my exam, she is awake and alert. She reports diminished pinprick appreciation in a stocking pattern extending to mid calf bilaterally with return to normal sensation near the knee bilaterally. She has similar but milder sensory findings over the fingers with good pinprick appreciation over the palms. She reports diminished pinprick appreciation over the belly extending from midline to midaxillary line bilaterally. Her responses to sensory testing across the trunk are inconsistent on repeated testing, but mostly are typical of peripheral neuropathy without a consistent reproducible thoracic sensory level. She has very poor proprioception at the great toe MTP joint bilaterally. 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 The negative imaging has all been reassuring. MCV is normal and B12 was low normal at 360 on 11/19/2018. I do not think we need any further neurologic workup while hospitalized. We might consider elective nerve conduction study, but that would not change current management and could be considered as an outpatient. PLAN: Agree with current plans. I would continue managing blood sugar aggressively, continue physical therapy. I encouraged her to be careful with her gait and activities and specifically advised her not to try to stand or walk in the dark. I will be glad to see her as an outpatient, if needed. Thanks for asking Neurology to see Ms. Pak. cc: MD AMANDA Edouard III
--- NOTE | 2018-12-03 14:33 | PROGRESS NOTE ---
DATE: 12/03/2018 SUBJECTIVE: Patient is resting in bed. OBJECTIVE: Vital Signs: Temperature 98.5 degrees, pulse 77, respiratory rate is 18, blood pressure is 149/72, oxygen saturation 94%. HEENT: Atraumatic and normocephalic. Cardiovascular System: S1 and S2. Respiratory System: Has evidence of good air entry bilaterally. Abdomen: Soft, nontender. No masses felt. Extremities: No evidence of edema. Central Nervous System: No obvious focal deficit noted. Labs: Sodium 141, potassium 3.6, chloride is 104, bicarb 28, BUN is 11, creatinine 0.8. ASSESSMENT AND PLAN: 1. Urinary retention. Maintain patient on Barboza catheter. Continue Flomax. Urology consulted. 2. Bowel incontinence. May be secondary to diabetic autonomic neuropathy, especially in light of urinary retention. Neurology consulted. 3. Anemia. Follow up on hemoglobin and hematocrit. Transfuse packed red blood cells as needed. 4. Hypokalemia. Corrected. 5. Anxiety with depression. Continue with appropriate psychiatric medications. 6. Lupus. Continue Plaquenil. 7. Hypertension. Optimize blood pressure control. 8. Deep vein thrombosis prophylaxis. Lovenox. 9. Gastrointestinal prophylaxis. Proton pump inhibitor. 10. Disposition. The patient will be going to [facility]. She is stable for discharge. She is not a danger to herself or to others. cc: Kaushik Forbes MD
[2018-12-03] MEDS: REMERON PO SCH (20:02)
[2018-12-03] MEDS: CYMBALTA PO SCH (20:02)
[2018-12-03] MEDS: ABILIFY PO SCH (20:02)
[2018-12-03] MEDS: LIPITOR PO SCH (20:02)
[2018-12-04] MEDS: HUMULIN R SUBQ SCH ×4 (06:35→23:38)
[2018-12-04] MEDS: COZAAR PO SCH (10:55)
[2018-12-04] MEDS: COREG PO SCH ×2 (10:55→23:39)
[2018-12-04] MEDS: VITAMIN D PO SCH (10:56)
[2018-12-04] MEDS: FLOMAX PO SCH (10:56)
[2018-12-04] MEDS: BRILINTA PO SCH ×2 (10:56→23:39)
[2018-12-04] MEDS: RANEXA PO SCH ×2 (10:56→23:39)
[2018-12-04] MEDS: PRILOSEC PO SCH ×2 (10:56→23:38)
[2018-12-04] MEDS: LOVENOX SUBQ SCH (10:57)
[2018-12-04] MEDS: PLAQUENIL PO SCH (10:57)
--- NOTE | 2018-12-04 11:45 | PROGRESS NOTE ---
DATE: 12/04/2018 SUBJECTIVE: Ms. Pak's history to me today is that she has had occasional small volume urinary incontinence over the last few months. She was wearing pads at night and sometimes wearing pads when she was away from home. She does not report large volume urinary incontinence. She had some sense of hesitancy with voiding, but reports to me today that she generally felt like she was able to empty her bladder voluntarily. There is report that she has been up and walking with physical therapy. I do not have anything new from Neurology standpoint. I suspect she has diabetic peripheral neuropathy, presumed diabetic autonomic neuropathy. There has not been any definite finding of upper motor neuron bowel or bladder problem. Negative imaging has been reassuring. I encouraged her to be aggressive with management of her blood sugar, to take her medicines as directed and to keep followup with her primary clinic. From neurologic standpoint, the next step would be to consider nerve conduction study and that is not urgent. Thanks for asking us to see Ms. Pak. cc: MD AMANDA Edouard III
--- NOTE | 2018-12-04 18:18 | PROGRESS NOTE ---
DATE: 12/04/2018 SUBJECTIVE: Patient resting comfortably in bed. OBJECTIVE: Vital Signs: Temperature 98.9 degrees, pulse 89, respiratory rate 18, blood pressure 160/86, oxygen saturation 94%. HEENT: Atraumatic, normocephalic. Cardiovascular: S1, S2. Respiratory: Has evidence of good air entry bilaterally. Abdomen: Soft, nontender. No masses felt. Extremities: No evidence of edema. Central nervous system: No obvious focal deficit noted. ASSESSMENT AND PLAN: 1. Urinary retention. Maintain patient on folic acid. Continue Flomax. Urology consulted. 2. Bowel incontinence. Etiology not clear. I suspect may be related to diabetic neuropathy. Neurology following. 3. Anemia. Follow up on hemoglobin and hematocrit. Transfuse packed red blood cells as needed. 4. Anxiety with depression. Continue appropriate psychiatric medications. 5. Lupus. Continue Plaquenil. 6. Hypertension. Optimize blood pressure control. 7. Deep vein thrombosis prophylaxis with Lovenox. 8. Gastrointestinal prophylaxis with proton pump inhibitor. 9. Disposition: Patient ready for discharge to senior care facility once bed is approved and made available. cc: Kaushik Forbes MD
--- NOTE | 2018-12-04 18:54 | PROGRESS NOTE ---
DATE: 12/04/2018 SUBJECTIVE: No acute events overnight. Patient remains afebrile. Denies any pain. The patient has urinary catheter in place, draining clear yellow urine, with over 3.7 L recorded since yesterday. The patient is having regular bowel movements. The patient has been evaluated by Neurology with no acute changes. OBJECTIVE: Vital Signs: Temperature 98.9 degrees, heart rate 87, blood pressure 160/86, oxygen saturation 94% on room air. General: No acute distress, resting comfortably in bed, alert and oriented x3. Respiratory: Good respiratory effort without audible wheezing or rales. Abdomen: Soft, nontender, and nondistended. No palpable masses. : No suprapubic tenderness. No CVA tenderness. Urethral catheter in place, draining clear yellow urine without clots. Neurologic: Moving all extremities. ASSESSMENT AND PLAN: Ms. Pak is a 58-year-old, with anxiety, depression, type 2 diabetes, coronary artery disease, status post coronary stents, hypertension, hyperlipidemia, lupus, gastroesophageal reflux disease, diabetic retinopathy, diabetic neuropathy, and osteoarthritis, who presents in evaluation regarding urinary retention. The patient has had a history of urinary retention for at least the past 3 weeks, where imaging studies have shown a distended bladder. I think that a lot of her symptoms could be related to diabetic neuropathy and autonomic changes. The patient has significant changes in both her bowels and bladder. She has had multiple negative MRI studies, which failed to elicit etiologies for urinary retention. Recommend keeping indwelling catheter in for at least 1 week. Would consider removal and voiding trial at that time. If continues to have episodes of retention, would consider urodynamics to assess the bladder. In talking with her today, if her bladder is areflexic or neurogenic, may have to consider chronic indwelling catheter versus suprapubic tube. We will continue to discuss this as her overall clinical condition becomes more apparent. cc: Bryant Maurice MD MTDD
[2018-12-04] MEDS: ABILIFY PO SCH (23:38)
[2018-12-04] MEDS: REMERON PO SCH (23:39)
[2018-12-04] MEDS: CYMBALTA PO SCH (23:39)
[2018-12-04] MEDS: LIPITOR PO SCH (23:39)
[2018-12-05] MEDS: HUMULIN R SUBQ SCH ×2 (07:03→11:43)
[2018-12-05 07:55] VITALS: BP 149/81
[2018-12-05] MEDS: PRILOSEC PO SCH (08:47)
[2018-12-05] MEDS: RANEXA PO SCH (08:47)
[2018-12-05] MEDS: VITAMIN D PO SCH (08:47)
[2018-12-05] MEDS: BRILINTA PO SCH (08:48)
[2018-12-05] MEDS: COREG PO SCH (08:48)
[2018-12-05] MEDS: PLAQUENIL PO SCH (08:48)
[2018-12-05] MEDS: COZAAR PO SCH (08:48)
[2018-12-05] MEDS: FLOMAX PO SCH (08:49)
[2018-12-05] MEDS: LOVENOX SUBQ SCH (08:49)
--- NOTE | 2018-12-05 10:31 | PROGRESS NOTE ---
DATE: 12/05/2018 I observed Ms. Pak up and walking with physical therapy assistance using a walker. She is awake, alert, attentive. Gait is little bit antalgic but also consistent with the peripheral numbness. I do not have any new thoughts from Neurology standpoint. Next step, if needed, would be to consider nerve conduction study and that can be done as an outpatient. I encouraged her to be aggressive with her physical therapy and with her blood sugar management. cc: MD AMANDA Edouard III
--- NOTE | 2018-12-05 15:08 | DISCHARGE SUMMARY ---
ADMISSION DATE: 11/18/2018 DISCHARGE DATE: 12/05/2018 FINAL DIAGNOSES: 1. Urinary retention. 2. Bowel incontinence. 3. Constipation. 4. Anxiety/major depression. 5. History of suicide attempts. 6. Coronary artery disease. 7. Hypertension. 8. Type 2 diabetes mellitus. 9. Lupus. 10. Osteoarthritis. 11. Obesity. 12. Dyslipidemia. DISCHARGE MEDICATIONS: Include the followin. Melatonin 6 mg at bedtime. 2. Bisacodyl 10 mg rectally daily. 3. Cymbalta 30 mg p.o. daily. 4. Losartan 25 mg p.o. daily. 5. MiraLAX 17 g twice a day. 6. Ranexa 500 mg p.o. twice a day. 7. Coreg 25 mg p.o. twice a day. 8. Brilinta 90 mg p.o. twice a day. 9. Atorvastatin 40 mg p.o. at bedtime. 10. Aspirin 1 p.o. daily. 11. Vitamin D [*] units p.o. daily. 12. Abilify 5 mg at bedtime. 13. Remeron 50 mg p.o. at bedtime. 14. Hydroxychloroquine 200 mg p.o. daily. CONSULTATIONS DONE DURING THIS HOSPITAL STAY: 1. GI, Dr. Fernandes. 2. Dr. Bryant Maurice, Urology. 3. Dr. Mckeon, Neurology. IMAGING DONE: 1. Abdominal ultrasound which revealed cholelithiasis with gallbladder sludge. 2. Abdominal x-ray which showed evidence of severe constipation. 3. Lumbar spine MRI, brain MRI, cervical spine MRI, thoracic spine MRI. HOSPITAL COURSE: Ms. Pak is a 58-year-old female with a history of depression, anxiety disorder, prior suicide attempts, coronary artery disease, who presented to hospital with chief complaint of urinary retention as well as constipation. The patient was admitted to the Hospitalist Service and had a Barboza catheter put in place. She was also noted to be having constipation and required laxities and GI was consulted. The patient did receive physical therapy, who felt the patient needed inpatient rehab. The events during the course of the hospital stay were the patient was noted to have bowel incontinence and required evaluation by the Neurosurgical team. There was concern that patient may have diabetic neuropathy. At this time, patient is stable. She can now be discharged to a rehab facility where she will continue to undergo rehabilitation. FOLLOWUP: The patient will need to follow up with: 1. Dr. Garcia, her primary care physician. 2. Dr. Fernandes of Gastroenterology. 3. Dr. Mckeon, Neurology. 4. Dr. Bryant Maurice, Urology. cc: Kaushik Forbes MD
== END 2018-12-05 16:16 ==
LOC: SUPCPDRO → ED 11:10 → 4N 17:16 → SUATTDRO 17:16 → INTOOBSV 17:16 → 4N 19:50
PROVIDERS: ATTEND Internal Medicine
CPT/HCPCS: 51701; 51702; 70553; 71010; 71045; 72141; 72142; 72157; 72158; 74000; 74018; 76700; 80048; 80053; 80061; 80069; 81001; 82150; 82533; 82607; 82746; 82948; 83036; 83690; 83721; 83735; 84439; 84443; 85025; 85027; 85610; 85651; 85730; 86140; 86160; 87088; 94761; 94799; 96361; 96374; 97116; 97162; 97530; 99283; 99285; A9270; A9579; J0696; J1650; J2060; J7030; P9612; XXXXX

== ENCOUNTER 2019-02-27 07:57 | Inpatient (IN) ==
[2019-02-27 08:23] LABS: BASO# 0.04 X1000 (0.0-0.2); BASO% 0.4 % (0.0-0.8); EOS# 0.23 X1000 (0.0-0.7); EOS% 2.3 % (0.0-10.0); HEMATOCRIT 35.1 % (37.0-47.0); HEMOGLOBIN 11.4 g/dL (12.0-16.0); IMM GRAN# 0.02 X1000 (0.0-0.04); IMM GRAN% 0.2 % (0.0-0.5); LYMPH# 1.71 X1000 (1.2-3.4); LYMPH% 16.9 % (20.5-51.1); MCH 25.7 PG (27-31); MCHC 32.5 g/dL (33-37); MCV 79.2 FL (81-99); MONO# 0.47 X1000 (0.11-0.59); MONO% 4.6 % (1.7-9.3); MPV 10.2 FL (7.4-10.4); NEUT# 7.65 X1000 (1.4-6.5); NEUT% 75.6 % (42.2-75.2); PLT 281 X1000 (130-400); RBC 4.43 XMIL (4.2-5.4); RDW 14.9 % (11.5-14.5); WBC 10.12 X1000 (4.8-10.8)
[2019-02-27 08:37] LABS: ALBUMIN 3.5 g/dL (3.5-5.0); CALCIUM 8.4 mg/dL (8.8-10.2); POTASSIUM 4.3 mmol/L (3.5-5.1); TOTAL BILIRUBIN 0.4 mg/dL (0.20-1.00)
[2019-02-27 08:38] LABS: INR 0.96; PROTIME 13.3 Seconds (11.0-16.0)
[2019-02-27 08:39] LABS: PTT 30.9 Seconds (22.3-41.8)
--- NOTE | 2019-02-27 08:56 | Diag Imaging Result Doc PS360 ---
CHEST-1 VIEW - 02/27/2019 INDICATION: r/o sepsis COMPARISON: 11/25/2018 FINDINGS: The lungs are normally expanded and clear. Heart size and mediastinal contours are normal. No pneumothorax or pleural effusion. IMPRESSION: Negative exam. Electronically signed by Alexis Colon 02/27/2019 8:54 AM
[2019-02-27 09:41] LABS: BILIRUBIN URINE NEGATIVE (NEGATIVE); BLOOD URINE 2+ (NEGATIVE); CLARITY VERY CLOUDY (CLEAR); COLOR YELLOW; GLUCOSE URINE NEGATIVE (NEGATIVE); KETONE URINE TRACE mg/dL (NEGATIVE); LEUKOCYTES URINE 2+ (NEGATIVE); NITRITE URINE POSITIVE (NEGATIVE); PROTEIN URINE 1+(30 mg/dL) mg/dL (NEGATIVE); UROBILINOGEN URINE 1 mg/dL
[2019-02-27 09:50] LABS: URINE EPITHELIAL CELLS >10 /HPF (<10); URINE WBC 20-40 /HPF (<10)
[2019-02-27 09:51] LABS: URINE BACTERIA 3+ /HFP; URINE CAST GRANULAR PRESENT /LPF
[2019-02-27 09:52] LABS: URINE SOURCE CATH
[2019-02-27] MEDS ORDERED: VANCOMYCIN IV PER PHARMACY MISC SCH (10:15)
[2019-02-27] MEDS ORDERED: NS 1,000 ML IV ONE (13:11)
--- NOTE | 2019-02-27 14:06 | PROVIDER DOCUMENTATION ---
This chart was entered by Glory Kimbrough Scribe, acting as scribe for Joseph Ordonez MD. HPI-Rash/Wound/ReCheck - General Chief Complaint: Sores/Lesions Stated Complaint: sore/lesion Time Seen by Provider: 02/27/19 08:23 Source: patient Allergies/Adverse Reactions: Allergies Allergy/AdvReac Type Severity Reaction Status Date / Time aspirin Allergy Severe RECTAL Verified 11/16/18 09:16 BLEEDING clindamycin Allergy Unknown RASH Verified 11/16/18 09:16 latex Allergy Unknown RASH Verified 11/16/18 09:16 sulfamethoxazole Allergy Unknown SWELLING Verified 11/16/18 09:16 [From Bactrim] trimethoprim [From Bactrim] Allergy Unknown SWELLING Verified 11/16/18 09:16 Home Medications: Home Medication List Medication Instructions Recorded Confirmed Last Taken Type ATORVAstatin [Lipitor] 40 mg PO QHS 06/17/18 11/18/18 11/16/18 18:30 History Aspirin [Adult Aspirin] 1 tab PO DAILY 09/29/18 11/18/18 11/16/18 08:00 History Cholecalciferol (Vitamin D3) 1 cap PO DAILY 11/12/18 11/18/18 11/16/18 08:00 History [Vitamin D3] Aripiprazole [Abilify] 5 mg PO QHS #10 tab 11/25/18 Unknown Rx Bisacodyl [Dulcolax] 10 mg SC DAILY supp 11/25/18 Unknown Rx Carvedilol [Coreg] 12.5 mg PO BID tablet 11/25/18 Unknown Rx Duloxetine [Cymbalta] 30 mg PO DAILY@1999 #10 cap 11/25/18 Unknown Rx Hydroxychloroquine Sulfate 200 mg PO DAILY #10 tab 11/25/18 Unknown Rx Losartan [Cozaar] 25 mg PO DAILY tablet 11/25/18 Unknown Rx Melatonin 6 mg PO QHS PRN tablet 11/25/18 Unknown Rx Mirtazapine [Remeron] 15 mg PO QHS #10 tab 11/25/18 Unknown Rx Polyethylene Glycol 3350 [Miralax] 17 gm PO BID powder, packet 11/25/18 Unknown Rx Ranolazine E.r. [Ranexa] 500 mg PO BID tablet 11/25/18 Unknown Rx Ticagrelor [Brilinta] 90 mg PO BID tablet 11/25/18 Unknown Rx - History of Present Illness-Dermatology Nature of Presenting Problem: Patient is a 58 year old female who presents to the ED via EMS with necrotic tissue to left 4th and 5th toes. Patient states symptoms have been present for 2 weeks. States she is diabetic and has neuropathy. Does not report fever. Location: reports: feet (left 4th and 5th toes) Quality: reports: none Severity: reports: moderate Onset/Duration: reports: other (2 weeks) Timing: reports: still present Context/Associated Symptoms: reports: other (necrotic tissue to left 4th and 5th toe with foul odor present) Similar Symptoms Previously?: Yes Recently seen or treated by another doctor?: No Review of Systems - Adult - REVIEW OF SYSTEMS - ADULT Constitutional: reports: no symptoms reported. denies: chills, fever, fatique Eyes: reports: no symptoms reported Ears, Nose, Mouth & Throat: reports: no symptoms reported Cardiovascular: reports: no symptoms reported Respiratory: reports: no symptoms reported Gastrointestinal: reports: no symptoms reported Genitourinary: reports: no symptoms reported Musculoskeletal: reports: no symptoms reported Integumentary: reports: other (necrotic tissue to left 4th and 5th toes with foul odor). denies: hives, itching, rash Neurological: reports: no symptoms reported Psychiatric: reports: no symptoms reported Endocrine: reports: no symptoms reported Hematologic/Lymphatic: reports: no symptoms reported Allergic/Immunologic: reports: no symptoms reported All Other Systems: Reviewed and Negative Past History - Adult - PAST MEDICAL HISTORY-ADULT Review of Records: reports: Old Records Reviewed, Nursing Assessment Review, Medications Reviewed, Social history reviewed & non-contributory. Major Childhood Illnesses: reports: denies history Cardiovascular: reports: CAD, HTN, hyperlipidemia, palpitations Respiratory: reports: denies history Gastrointestinal: reports: denies history Obstetrical/Gynecological: reports: denies history Genitourinary: reports: kidney disease (does not req dialysis) Musculoskeletal: reports: denies history Neurological: reports: denies history Psychiatric: reports: anxiety, psychiatric problems (suicidal thoughts, was at aug 7-15.) Endocrine/Immune: reports: Diabetes, lupus Other Conditions: reports: cataract/glaucoma (bilateral cat), eye problems/injury (left eye hemmorage) - PRIOR SURGERIES/PROCEDURES Surgical/Procedure History: reports: cardiac stent (x2 jul 2018), , other (bilateral cataract) - IMMUNIZATION STATUS Childhood Immunizations: See Nurse Assessment Flu Vaccine: See Nurse Assessment - FAMILY HISTORY Family History: reviewed, not pertinent - SOCIAL HISTORY Smoking: cigarettes (former) Substance Use: denies Living Situation: care facility (SNF) Physical Exam-General - PHYSICAL EXAM-ADULT Initial Vital Signs Reviewed: Yes - CONSTITUTIONAL General Appearance: alert, no apparent distress. negative: lethargic, obtunded - HEAD, EARS, NOSE, MOUTH & THROAT HENMT: normocephalic/atraumatic, moist mucous membranes. negative: angioedema, hearing deficit - RESPIRATORY Respiratory: chest non-tender, lungs clear, normal breath sounds. negative: crackles, rhonchi, wheezing - CARDIOVASCULAR Cardiovascular: normal peripheral pulses, regular rate, rhythm. negative: tachycardia, systolic murmur - GASTROINTESTINAL (ABDOMEN) Abdominal Exam: normal bowel sounds, non tender, soft. negative: guarding, rebound - MUSCULOSKELETAL Extremity: other (necrotic tissue present to left 4th and 5th toes extending to planter aspect under 4th and 5th metatarsal. foul odor present to necrotic tissue.) - SKIN Integumentary: decubitus (stage 2 to left buttock), other (necrotic tissue present to left 4th and 5th toes extending to planter aspect under 4th and 5th metatarsal. foul odor present to necrotic tissue.) - NEUROLOGIC Neurologic: grossly normal. negative: aphasia, facial droop - PSYCHIATRIC Psych/Mental Status: normal mood/affect, oriented x 3. negative: anxious, paranoid Progress - PLAN OF CARE/RESULTS Progress/Plan/Lab Results: Vital Signs - 8 hr 02/27/19 08:01 02/27/19 08:30 02/27/19 09:44 Temperature 98.5 F Pulse Rate 79 82 81 Respiratory Rate 18 18 16 Blood Pressure 162/80 140/76 165/91 O2 Sat by Pulse Oximetry 96 98 95 Laboratory Results - last 24 hr 02/27/19 02/27/19 02/27/19 08:09 08:09 08:09 WBC 10.12 RBC 4.43 Hgb 11.4 L Hct 35.1 L MCV 79.2 L MCH 25.7 L MCHC 32.5 L RDW Std Deviation 14.9 H Plt Count 281 MPV 10.2 Immature Gran % (Auto) 0.2 Neut % (Auto) 75.6 H Lymph % (Auto) 16.9 L Teller % (Auto) 4.6 Eos % (Auto) 2.3 Baso % (Auto) 0.4 Immature Gran # (Auto) 0.02 Neut # (Auto) 7.65 H Lymph # (Auto) 1.71 Teller # (Auto) 0.47 Eos # (Auto) 0.23 Baso # (Auto) 0.04 PT 13.3 INR 0.96 PTT (Actin FS) 30.9 Sodium 135 L Potassium 4.3 Chloride 95 L Carbon Dioxide 29 Anion Gap 12 BUN 22 Creatinine 1.0 H Estimated GFR/1.73 m2 57 BUN/Creatinine Ratio 22 Glucose 140 H Calculated Osmolality 276 Calcium 8.4 L Total Bilirubin 0.40 AST 18 ALT 15 Alkaline Phosphatase 101 Creatine Kinase 72 Troponin T Total Protein 7.0 Albumin 3.5 Globulin 4.0 Albumin/Globulin Ratio 1.0 Plasma Lactate Urine Source Urine Color Urine Clarity Urine pH Ur Specific Molina Urine Protein Urine Ketones Urine Blood Urine Nitrite Urine Bilirubin Urine Urobilinogen Urine Microscopic RBC Urine WBC Urine Microscopic WBC Ur Epithelial Cells Urine Bacteria Urine Casts Urine Glucose 02/27/19 02/27/19 02/27/19 08:09 08:09 09:15 WBC RBC Hgb Hct MCV MCH MCHC RDW Std Deviation Plt Count MPV Immature Gran % (Auto) Neut % (Auto) Lymph % (Auto) Teller % (Auto) Eos % (Auto) Baso % (Auto) Immature Gran # (Auto) Neut # (Auto) Lymph # (Auto) Teller # (Auto) Eos # (Auto) Baso # (Auto) PT INR PTT (Actin FS) Sodium Potassium Chloride Carbon Dioxide Anion Gap BUN Creatinine Estimated GFR/1.73 m2 BUN/Creatinine Ratio Glucose Calculated Osmolality Calcium Total Bilirubin AST ALT Alkaline Phosphatase Creatine Kinase Troponin T 0.032 Total Protein Albumin Globulin Albumin/Globulin Ratio Plasma Lactate 1.1 Urine Source CATH Urine Color YELLOW Urine Clarity VERY CLOUDY A Urine pH 5.0 Ur Specific Molina 1.020 Urine Protein 1+(30 mg/dL) A Urine Ketones TRACE Urine Blood 2+ A Urine Nitrite POSITIVE A Urine Bilirubin NEGATIVE Urine Urobilinogen 1 Urine Microscopic RBC 10-20 A Urine WBC 2+ A Urine Microscopic WBC 20-40 A Ur Epithelial Cells >10 A Urine Bacteria 3+ Urine Casts GRANULAR PRESENT Urine Glucose NEGATIVE 02/27/19 11:36 WBC RBC Hgb Hct MCV MCH MCHC RDW Std Deviation Plt Count MPV Immature Gran % (Auto) Neut % (Auto) Lymph % (Auto) Teller % (Auto) Eos % (Auto) Baso % (Auto) Immature Gran # (Auto) Neut # (Auto) Lymph # (Auto) Teller # (Auto) Eos # (Auto) Baso # (Auto) PT INR PTT (Actin FS) Sodium Potassium Chloride Carbon Dioxide Anion Gap BUN Creatinine Estimated GFR/1.73 m2 BUN/Creatinine Ratio Glucose Calculated Osmolality Calcium Total Bilirubin AST ALT Alkaline Phosphatase Creatine Kinase Troponin T Total Protein Albumin Globulin Albumin/Globulin Ratio Plasma Lactate 1.0 Urine Source Urine Color Urine Clarity Urine pH Ur Specific Molina Urine Protein Urine Ketones Urine Blood Urine Nitrite Urine Bilirubin Urine Urobilinogen Urine Microscopic RBC Urine WBC Urine Microscopic WBC Ur Epithelial Cells Urine Bacteria Urine Casts Urine Glucose Orders Category Date Time Status Apply Sacral Dressing ORDERED Care 02/27/19 09:57 Active Cardiac Monitoring DIRECTED Care 02/27/19 08:09 Active IV Insertion ORDERED Care 02/27/19 08:09 Completed Notify MD of + Sepsis Screen NOW Care 02/27/19 08:09 Completed Notify Physician As Ordered Care 02/27/19 08:09 Completed CHEST-1 VIEW [RAD] Stat Exams 02/27/19 08:09 Completed BLOOD CULTURE [BLDCUL] Stat Lab 02/27/19 08:15 Ordered CBC WITH DIFF [HEME] Stat Lab 02/27/19 08:09 Completed CK PROFILE [SP CHEM] Stat Lab 02/27/19 08:09 Completed COMPREHENSIVE METABOLIC PANEL [CHEM] Stat Lab 02/27/19 08:09 Completed LACTATE, PLASMA [CHEM] Lab 02/27/19 08:09 Completed LACTATE, PLASMA [CHEM] Lab 02/27/19 11:36 Completed LACTATE, PLASMA [CHEM] Lab 02/27/19 14:15 Uncollected PROTIME WITH INR [COAG] Stat Lab 02/27/19 08:09 Completed PTT [COAG] Stat Lab 02/27/19 08:09 Completed ROUTINE CULTURE [RM] Routine Lab 02/27/19 09:00 Ordered TROPONIN T Stat Lab 02/27/19 08:[address] W/POSS RFLX CULT [URINALYSIS] Stat Lab 02/27/19 09:15 Completed URINE CULTURE [RM] Routine Lab 02/27/19 09:52 Ordered Oxygen Device Stat Oth 02/27/19 08:09 Active Transfer/Admit Order [TRANSFER] Routine Transfer 02/27/19 11:31 Ordered Result Diagrams: 02/27/19 08:09 02/27/19 08:09 - XRAY 1 XRAY Study: Chest Impression: See EMR Report ( CHEST-1 VIEW - 02/27/2019 INDICATION: r/o sepsis COMPARISON: 11/25/2018 FINDINGS: The lungs are normally expanded and clear. Heart size and mediastinal contours are normal. No pneumothorax or pleural effusion. IMPRESSION: Negative exam. Electronically signed by Alexis Colon 02/27/2019 8:54 AM 02/27/19 0854 Interpreting Physician: Alexis Colon MD Dictated Date/Time: 02/27/19 0853 cc: Joseph Ordonez MD; Cooper Garcia MD) - CONSULTS/PCP/HOSPITALIST Notification #1 *Consult/PCP/Hospitalist*: GABRIELLA Dutta for Dr. Moreira Time Discussed: 09:42 Reason/Comments: Dr. Ordonez consulted with Luzmaria about patient #2 Consult: Dr. Richard Time Discussed: 10:51 Reason/Comments: Dr. Ordonez consulted with Dr. Richard about patient Consult Disposition: Will see in ED, Admit #3 Consult: Dr. Vo Time Discussed: 12:01 Reason/Comments: Dr. Ordonez consulted with Dr. Vo about patient Consult Disposition: other (will consult on patient.) Departure - Departure Date of Disposition Decision: 02/27/19 Time of Disposition Decision: 12:12 DIAGNOSIS: Gangrene of toe, UTI (urinary tract infection), Decubitus ulcer Disposition: ADMITTED INPATIENT 09 Certified Medical Emergency: Emergent Condition: Fair Referrals and Follow-Ups: Cooper Garcia MD [Primary Care Provider] - Chester Moreira MD [ACTIVE STAFF PHYSICIAN] - - Critical Care Note This patient required my direct & personal management of CC.: No Attestation - Physician/ CORINNE Attestation The physician spent face to face time with patient:: Yes Advanced Practice Provider documentation review:: Supervising physician onsite and consulted in the evaluation and care of this patient. The physician did have a face to face encounter with the patient. This chart was documented by the indicated scribe, (Glory Kimbrough, Abbie) and accurately reflects the services I performed and decisions made by me, Joseph Ordonez MD, as attested by the provider's signature.
[2019-02-27] MEDS ORDERED: ROCEPHIN 1 GM in NS 50 ML IV SCH (14:14)
--- NOTE | 2019-02-27 17:16 | HISTORY AND PHYSICAL ---
PRIMARY CARE PHYSICIAN: Cooper Garcia MD CHIEF COMPLAINT: Diabetic necrotic tissue to her left 4th and 5th toes, that has progressively worsened. HISTORY OF PRESENTING ILLNESS: This is a 58-year-old female, who presents to [facility] ER via EMS from rehabilitation, where she has developed gangrenous eschar tissue that is necrotic to her left 4th and 5th toes with a foul-smelling odor. She also has a stage 2 to her sacral area. She had an indwelling Barboza catheter that was changed when she arrived to the emergency room. The urinalysis showed positive nitrites, 2+ white blood cells, 3+ bacteria, so she is being admitted for further evaluation and treatment. PAST MEDICAL HISTORY: Coronary artery disease, hypertension, hyperlipidemia, kidney disease, anxiety/depression, diabetes type 2, lupus, bilateral cataracts, and a left eye hemorrhage. PAST SURGICAL HISTORY: Heart stent placement x2 in July 2018, bilateral cataract surgery, and a . FAMILY HISTORY: Reviewed and noncontributory. SOCIAL HISTORY: She currently resides at a correction facility for rehabilitation. Is a former smoker but none currently and no alcohol or illicit drug use. ALLERGIES: Aspirin, clindamycin, latex, and sulfa drugs. HOME MEDICATIONS: A current list will need to be obtained reconciled, reviewed, and restarted as appropriate. We will place an order for Nursing to update and confirm home medications. DIAGNOSTIC STUDIES: Laboratory data showed a white blood cell count of 10.12, hemoglobin 11.4, hematocrit 35.1, platelets 281,000. PT of 13.3 and INR 0.96. Sodium 135, potassium 4.3, chloride 95, CO2 of 29, BUN of 22, creatinine 1, glucose 140. Plasma lactate 1.1. Urinalysis with positive nitrites, 2+ white blood cells, 3+ bacteria. A chest x-ray that showed a negative exam. REVIEW OF SYSTEMS: She denied any fever, chills, blurred vision, dizziness, chest pain, coughing, shortness of breath. She denied any abdominal pain, constipation, diarrhea, or burning or hurting with urination. She denied any pain to her left foot where she has necrotic tissue to the left 4th and 5th toes, but is noted to have a foul-smelling odor. PHYSICAL EXAMINATION: VITAL SIGNS: On arrival, she had a temperature of 98.5 degrees, pulse 79, respirations 18, blood pressure 162/80, saturating 96% on room air. GENERAL: This is a 58-year-old female, who is lying in the bed and answers questions appropriately. HEMNT: Normocephalic, atraumatic. Normal ENT inspection. Oropharynx and nares are clear. EYES: Pupils are equal, round, and reactive to light and accommodation. Extraocular movements are intact. NECK: Normal inspection. Normal range of motion. LUNGS: Clear to auscultation bilaterally with equal lung expansion and chest wall movement. HEART: Regular rate and rhythm. No murmurs, rubs, or gallops. ABDOMEN: Soft, nontender, nondistended. Bowel sounds are present x4 quadrants. MUSCULOSKELETAL: She is noted to have necrotic tissue to her left 4th and 5th toes, extending to the plantar aspect underneath the 4th and 5th metatarsals, foul odor present to the necrotic tissue. She is also noted to have a stage 2 to her left buttock. NEUROLOGICAL: The cranial nerves 2 through 12 appear grossly intact. ASSESSMENT: 1. 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 2. Urinary tract infection. 3. Stage 2 sacral decubitus ulcer. 4. Diabetes, type 2. OUR PLAN: She will be admitted to the medical unit at [place]. Placed on telemetry. Diabetic diet. Urine culture and blood cultures x2 are pending. We did obtain a left 5th toe routine culture that is pending as well. We will place on Rocephin 1 gram IV q.24 h. for her urinary tract infection. We are consulting General Surgery, who will see the patient here at [place], and then further decisions on whether she will be taken to surgery will be made at that time. We need to update and confirm home medications, and we will consult Wound Care for her stage 2 decubitus to her sacrum. We will repeat a CBC and a BMP in the a.m. Further orders after seen by attending and by consultants. Dictated by TC Hines for Eliseo Obregon MD Addendum: Patient seen and examined by myself. Agree with TC note. It reflects my assessment and plan. Patient is being admitted to hospital for left foot gangrene. The distal part of left foot is completely necrotic and may need an amputation. Will consult General Surgery and will start broad spectrum antibiotics with Vancomycin and Zosyn and will go from there. cc: TC Hines MD Adnan A. Seljuki, MD MTDD
[2019-02-28 07:07] LABS: BASO# 0.04 X1000 (0.0-0.2); BASO% 0.5 % (0.0-0.8); EOS# 0.26 X1000 (0.0-0.7); HEMATOCRIT 33.2 % (37.0-47.0); HEMOGLOBIN 10.5 g/dL (12.0-16.0); IMM GRAN# 0.01 X1000 (0.0-0.04); IMM GRAN% 0.1 % (0.0-0.5); LYMPH# 1.64 X1000 (1.2-3.4); LYMPH% 18.7 % (20.5-51.1); MCH 24.9 PG (27-31); MCHC 31.6 g/dL (33-37); MCV 78.7 FL (81-99); MONO# 0.45 X1000 (0.11-0.59); MONO% 5.1 % (1.7-9.3); MPV 10.1 FL (7.4-10.4); NEUT# 6.39 X1000 (1.4-6.5); NEUT% 72.6 % (42.2-75.2); PLT 260 X1000 (130-400); RBC 4.22 XMIL (4.2-5.4); RDW 14.8 % (11.5-14.5); WBC 8.79 X1000 (4.8-10.8)
[2019-02-28 07:24] LABS: AGAP 11; BUN 16 mg/dL (8-22); CHLORIDE 99 mmol/L (98-107); COSMO 273; CREATININE 0.7 mg/dL (0.5-0.9); ESTIMATED GFR > 60; GLUCOSE 121 mg/dL (70-104); POTASSIUM 3.8 mmol/L (3.5-5.1); SODIUM 135 mmol/L (136-145); TCO2 25 mmol/L (25-35)
[2019-02-28] MEDS ORDERED: VANCOMYCIN IV PER PHARMACY MISC SCH (08:45)
[2019-02-28 09:12] LABS: HEMOGLOBIN A1C 6.7 % (4.8-6.0)
[2019-02-28] MEDS: ZOSYN 3.375 GM in NS 50 ML IV SCH ×3 (09:59→22:02)
[2019-02-28] MEDS: NS 1,000 ML IV SCH (09:59)
[2019-02-28] MEDS ORDERED: VANCOMYCIN 1,600 MG in NS 250 ML IV ONE (10:00)
[2019-02-28] MEDS ORDERED: HUMALOG (PARKWAY) SUBQ SCH (11:00)
[2019-02-28] MEDS ORDERED: MELATONIN PO PRN (12:25)
--- NOTE | 2019-02-28 13:19 | PROGRESS NOTE ---
DATE: 02/28/2019 SUBJECTIVE: Patient reports feeling fine. Denies any fever or chills. No pain in the left foot. OBJECTIVE: Vital Signs: Temperature 98.5 degrees, heart rate 80, respiratory rate 18, blood pressure 167/78, O2 saturation 98% on room air. General: This is a chronically ill-appearing, 58- year-old female lying in bed, in no acute distress. Cardiovascular: S1, S2 heard. No murmurs, gallops, or rubs. Regular rate and rhythm. Respiratory: Bilaterally clear to auscultation. No work of breathing or using accessory muscles. Abdomen: Soft, nontender to palpation. Bowel sounds present. No organomegaly. Extremities: There is necrotic tissue on the fourth and fifth toes extending to the plantar aspect underneath the fourth and fifth metatarsals, with very foul odor present in the necrotic tissue. She also has a stage II ulcer to the left buttock. Neurological: Patient alert and oriented x3. Moves all 4 extremities. LABORATORY DATA: White cell count 8.79, hemoglobin 10.5, hematocrit 33.2, platelets 260,000. Sodium 135. Hemoglobin A1c is 6.7. ASSESSMENT AND PLAN: 1. Left foot gangrene of the fourth and fifth toes, with necrotic area. General Surgery has been consulted but the consultation is still pending. For anticipation for possible amputation because this area is completely necrotic, I prefer to go ahead and transfer this patient to [facility]. We will consult also ID, and we will continue with broad-spectrum antibiotics, in this case it is vancomycin and Zosyn. We will continue to monitor this patient closely. 2. Urinary tract infection. Urine culture is still pending. We will continue with the same antibiotic management and will adjust antibiotics whenever the final sensitivity of the culture is available. 3. Stage II sacral decubitus ulcer. Aware. We will continue with wound care. 4. Diabetes mellitus, type 2. Actually surprisingly hemoglobin A1c in almost normal at 6.5. We will continue with Accu-Chek before meals and also at bedtime. 5. Disposition. As mentioned before, we are transferring to [facility]. cc: Eliseo Obregon MD
[2019-02-28] MEDS: HUMALOG SUBQ SCH ×3 (16:44→22:15)
--- NOTE | 2019-02-28 17:14 | CONSULTATION ---
DATE OF CONSULTATION: 02/28/2019 Ms. Gail Pak is a 58-year-old white female [facility] resident with diabetes, chronic indwelling Barboza catheter tube whose recently . She presented to [facility] Emergency Department with urinary tract infection and a necrotic lateral aspect of her left foot. She was admitted to [facility] for IV antibiotics for her UTI knowing that eventually she will need debridement of her left foot. We were asked to evaluate her because of her left foot. On exam, Ms. Pak is an older white female, pleasant, awake, cooperative of good weight. No acute distress. HEENT. No jaundice. No oral lesions. No cervical or supraclavicular lymphadenopathy. Her heart has regular rate. Lungs are clear. Abdomen soft, nontender without palpable mass. She has palpable femoral pulses. She has a palpable dorsalis pedis pulse bilaterally even on the foot with necrosis distally. There is necrosis of her soft tissue lateral aspect of the left foot. There does not appear to be any significant cellulitis around this necrosis or undrained purulence. There is no swelling involving her lower extremities.Neurological: She is awake, alert. She has no focal deficit. It must be noted that in July she underwent coronary artery stent placement and is on Brilinta. She will need debridement of her necrotic left foot possible she will lose her left 5th and 4th toes. She may lose more that foot but what I am going to do is debride all the necrotic tissue. She has a palpable dorsalis pedis pulse and we may be able to get the wound healed because of her blood supply. I need Cardiology to address whether I can stop her Brilinta 6 months status post coronary stent placement. She will need to be transferred from [facility] to [facility] for surgery. Now she is being treated with antibiotics for her UTI. I discussed this with the patient and her son at the bedside. cc: Sanaz Vo MD
--- NOTE | 2019-02-28 19:24 | CARDIOLOGY CONSULTATION ---
DATE: 02/28/2019 CONSULTATION REQUESTED BY: Hospitalist service. REASON: Preoperative cardiac evaluation. The patient has had previous coronary stent and needs to have amputation of 2 digits of the left foot. HISTORY: A 58-year-old female presented to [facility] on February 27 from [facility] where she resides since November of this year with complaints of necrotic soft tissue of the left 4th and 5th digits. This has evolved rapidly over the past few days according to the patient. She denies having any new onset of chest pain, dyspnea, palpitations, edema, syncope, dizziness. PAST HISTORY: Positive for coronary heart disease. She had an abnormal stress test last year and that was back in June 2018. Subsequently we performed a heart catheterization on her on 07/30/2018 and this was followed by stenting to the right coronary artery in the same month. Since then the patient has had no further episodes of chest discomfort. She has a stable pattern of chest symptoms. She has history of hypertension. She has been diabetic for 25 years. There is a history of depression. She has polyneuropathy. She has hypertension which is well controlled. SURGICAL HISTORY: She had and breast biopsy. She has had cataract surgery. FAMILY HISTORY: Positive for heart disease. SOCIAL HISTORY: She is currently staying at the [facility] as a permanent resident for the past 3 months. She is not a smoker or drinker. HOME MEDICATIONS: At the time of the present admission included Abilify 5 mg at bedtime, aspirin 81 daily, atorvastatin 40 at bedtime, Brilinta 90 mg twice a day, carvedilol 12.5 twice a day, Cymbalta 60 mg daily, furosemide 20 mg daily, hydrochloroquine 200 mg daily, linezolid 300 mg at bedtime, losartan 25 mg daily, melatonin at bedtime, potassium chloride 20 mEq daily, Ranexa 500 twice a day, vitamin D3. ALLERGIES: She is allergic to clindamycin, aspirin, latex and Bactrim. REVIEW OF SYSTEMS: She has become more frail lately. She has become a permanent [facility] resident because of inability to care for herself. She was admitted to the hospital back in November because she was having issues with numbness and weakness of the lower extremities, urinary retention and bowel incontinence. Polyneuropathy has been diagnosed. No other positives in the multiple systems. PHYSICAL EXAMINATION: Vital signs: Blood pressure is 148/76, temperature 99, pulse 87, respiration 18. She is awake, alert, oriented, follows commands. HEENT: Unremarkable. Chest: Clear to auscultation, percussion. Heart: Sounds regular and rhythmic. No gallop or murmur. Abdomen: Soft, nontender. Extremities: Show decreased pulses. No peripheral edema. She does have the left foot wrapped in dressing. Neurologic: Follows commands. Her sensation to touch and pain is decreased in both legs. Cranial nerves are normal. Mentation is normal. 12 lead EKG has not been done. We need to get one so we can elaborate on whether or not there has been a change. A chest x-ray showed no acute abnormalities on February 27. IMPRESSION: 1. Patient who has stable pattern of angina pectoris. She is status post stent to right coronary artery in July 2018. She has diffuse coronary atherosclerosis of the 3 coronary arteries. 2. Long-term diabetes mellitus with polyneuropathy. 3. Ischemic gangrene of toes of left foot. 4. Hypertension. 5. Hyperlipidemia. RECOMMENDATION: From cardiology viewpoint, patient seems to be stable. She may proceed with amputation at relatively low risk. I will probably hold the Brilinta from now until the surgery is done and once the surgery is completed and there are no more issues with bleeding, she may resume Brilinta indefinitely. Please call us if you have any questions or concerns. We will need to do an EKG to have a baseline study prior to subjecting her to general anesthesia. cc: Michael Palomo MD
[2019-02-28] MEDS: CYMBALTA PO SCH ×2 (22:02→22:17)
[2019-02-28] MEDS: COREG PO SCH ×2 (22:02→22:16)
[2019-02-28] MEDS: ABILIFY PO SCH ×2 (22:03→22:18)
[2019-02-28] MEDS: LIPITOR PO SCH ×2 (22:03→22:18)
[2019-02-28] MEDS: MIRALAX PO SCH (22:03)
[2019-02-28] MEDS: BRILINTA PO SCH ×2 (22:03→22:16)
[2019-02-28] MEDS: RANEXA PO SCH ×2 (22:03→22:17)
[2019-03-01] MEDS ORDERED: VANCOMYCIN 1,150 MG in NS 250 ML IV SCH ×2 (04:00→05:00)
[2019-03-01] MEDS: ZOSYN 3.375 GM in NS 50 ML IV SCH ×2 (04:39→08:50)
[2019-03-01 05:49] LABS: BASO% 0.4 % (0.0-0.8); EOS% 2.2 % (0.0-10.0); HEMATOCRIT 35.2 % (37.0-47.0); HEMOGLOBIN 11.2 g/dL (12.0-16.0); IMM GRAN% 0.2 % (0.0-0.5); LYMPH# 1.57 X1000 (1.2-3.4); LYMPH% 15.3 % (20.5-51.1); MCH 25.2 PG (27-31); MCHC 31.8 g/dL (33-37); MCV 79.3 FL (81-99); MONO# 0.64 X1000 (0.11-0.59); MONO% 6.2 % (1.7-9.3); MPV 10.4 FL (7.4-10.4); NEUT# 7.78 X1000 (1.4-6.5); NEUT% 75.7 % (42.2-75.2); PLT 259 X1000 (130-400); RBC 4.44 XMIL (4.2-5.4); RDW 14.9 % (11.5-14.5); WBC 10.28 X1000 (4.8-10.8)
[2019-03-01 05:50] LABS: BASO# 0.04 X1000 (0.0-0.2); EOS# 0.23 X1000 (0.0-0.7); IMM GRAN# 0.02 X1000 (0.0-0.04)
[2019-03-01 06:17] LABS: AGAP 9; BUN 16 mg/dL (8-22); CALCIUM 8.3 mg/dL (8.8-10.2); CHLORIDE 100 mmol/L (98-107); COSMO 279; CREATININE 0.8 mg/dL (0.5-0.9); ESTIMATED GFR > 60; GLUCOSE 199 mg/dL (70-104); POTASSIUM 3.5 mmol/L (3.5-5.1); SODIUM 136 mmol/L (136-145); TCO2 27 mmol/L (25-35)
[2019-03-01] MEDS: NS 1,000 ML IV SCH ×3 (06:21→10:54)
[2019-03-01] MEDS: HUMALOG SUBQ SCH ×4 (06:58→23:56)
--- NOTE | 2019-03-01 08:15 | PROGRESS NOTE ---
DATE: 03/01/2019 Ms. Gail Pak has been transferred from [facility] to [facility] for further care. She was initially admitted through the emergency department at [place] with a UTI and a necrotic lateral left foot. She is a diabetic, in a jail. She has developed gangrene involving the lateral distal aspect of her left foot but she does have a palpable dorsalis pedis pulse. There is no surrounding cellulitis or swelling of her left lower extremity. This week, she will need amputations of at least the left 4th and 5th toes, and debridement of all necrotic tissue. Then we will just have to see what her foot wound looks like. cc: Sanaz Vo MD
[2019-03-01] MEDS: COZAAR PO SCH (08:46)
[2019-03-01] MEDS: COREG PO SCH ×2 (08:46→23:56)
[2019-03-01] MEDS: BRILINTA PO SCH ×2 (08:46→23:56)
[2019-03-01] MEDS: DULCOLAX PR SCH (08:46)
[2019-03-01] MEDS: RANEXA PO SCH ×2 (08:47→23:57)
[2019-03-01] MEDS: MIRALAX PO SCH ×2 (08:47→23:57)
[2019-03-01] MEDS: LASIX PO SCH (08:47)
[2019-03-01] MEDS: VITAMIN D PO SCH (08:47)
[2019-03-01] MEDS: PLAQUENIL PO SCH (08:47)
--- NOTE | 2019-03-01 14:50 | INFECTIOUS DISEASE CONSULT REP ---
DATE: 03/01/2019 CONCLUSION: The patient has gangrene of the left foot. She also has a urinary tract infection. RECOMMENDATIONS: I have discontinued vancomycin and Zosyn, and I put the patient on Rocephin and Flagyl. I am going to order an x-ray of the patient's left foot. DISCUSSION: The patient is unable provide a history. No family member is present. My information is derived from information in the computer. The patient was transferred from [facility] to [facility]. She had developed gangrene of the left foot. The gangrene was noted to have a foul odor. The patient has a superficial wound in the sacral area. It is erythematous but there was no purulence. The patient's laboratory studies show a CBC with a white count of 10,280, hemoglobin 11.2, and platelet count 259,000. Creatinine is 0.8. GFR is greater than 60. Liver function studies were normal. Urinalysis showed white cells and bacteria. The culture from the patient's left foot grew Providencia and urine culture grew Klebsiella. Blood cultures were negative. PAST MEDICAL HISTORY: Positive for coronary artery disease, hypertension, hyperlipidemia, kidney disease, anxiety/depression, diabetes, systemic lupus, bilateral cataracts, and left eye hemorrhage. PAST SURGICAL HISTORY: Positive for placing coronary artery stents, bilateral cataract surgery, and section. FAMILY HISTORY: Said to be noncontributory. SOCIAL HISTORY: The patient lives in a senior care facility for rehabilitation. She previously smoked but not recently. She does not have a history of alcohol or illicit drug use. ALLERGIES: The patient is allergic to aspirin, clindamycin, and trimethoprim/sulfamethoxazole HOME MEDICATIONS: The home medications include the following: Abilify, Lipitor, Dulcolax, buspirone, Coreg, Cymbalta, furosemide, hydroxychloroquine, Zyvox, losartan, melatonin, Remeron, Ranexa, and Brilinta. PRESENT ILLNESS: The patient's chest x-ray shows clear lungs. PHYSICAL EXAMINATION: Vital Signs: Temperature is 98.5 degrees, pulse 82, respirations 20, blood pressure 169/71. Patient weighs 130 pounds. General: This is an ill-appearing, middle-aged female. She is very lethargic. There is no tremor. Head, Eyes, Ears, Nose, and Throat: No drainage from the nose or ears. I could not see into her mouth. Her eyelids were closed. Neck: No meningismus. Lungs: Clear to auscultation. Cardiovascular: Regular heart rate. Abdomen: Soft and nontender. Pelvic Examination: The patient has a Barboza catheter in place. Extremities: The patient's left foot has a distal lateral gangrene that had a foul odor. There was no erythema noted. Neurologic: The patient is very lethargic. She did not follow requests to move her extremities. She did not answer questions. There was no tremor. Integument: In the lower sacral area, a little bit on the left side, there is a wound that is erythematous. There is no purulence or gangrene. There was no odor to the wound either. Thank you for the consult. cc: Lobito Prakash MD
--- NOTE | 2019-03-01 15:07 | Diag Imaging Result Doc PS360 ---
EXAM: FOOT 2 VIEWS LEFT INDICATION: gangrene TECHNIQUE: 2 views COMPARISON: 09/01/2010 FINDINGS: There is bandaging overlying the lateral aspect of the foot. There are bony erosions and osteopenia involving the distal metatarsals and the proximal phalanges of the fourth and fifth toes adjacent to the MTP joints consistent with osteomyelitis. These changes were not present on the previous study. There is atherosclerotic calcification involving the dorsalis pedis. IMPRESSION: Osteomyelitis involving the fourth and fifth metatarsals and proximal phalanges as described. Electronically signed by Gabriel Ordaz 03/01/2019 3:05 PM
[2019-03-01] MEDS: ROCEPHIN 1 GM in NS 50 ML IV SCH (16:25)
[2019-03-01] MEDS: FLAGYL 500 MG/NS 500 MG/100 ML IVPB IV SCH (16:25)
--- NOTE | 2019-03-01 16:31 | PROGRESS NOTE ---
DATE: 03/01/2019 SUBJECTIVE: Patient resting in bed. OBJECTIVE: Vital signs: Temperature 98.4 degrees, pulse 76, respiratory rate 20, blood pressure 158/73, oxygen saturation 100%. HEENT: Atraumatic, normocephalic. Cardiovascular system: S1, S2. Respiratory system: Has evidence of good air entry bilaterally. Abdomen: Soft, nontender. No masses felt. Extremities: Wound site left foot dressed. Central nervous system: No obvious focal deficits noted. LABS: WBC is 10.2, hematocrit 35.2, with a platelet count of 259,000. Sodium is 136, potassium 3.5, chloride 100, bicarb is 27, BUN 6, creatinine 0.8. ASSESSMENT AND PLAN: 1. Left foot gangrene of the fourth as well as fifth toes. Continue current antibiotic regimen. ID recommendation. General Surgery consulted. 2. Stage 2 sacral decubitus ulcer. Continue local wound care. 3. Diabetes mellitus. Monitor blood sugar levels and maintain patient on sliding scale insulin. 4. Deep vein thrombosis prophylaxis. 5. GI prophylaxis. PPI. cc: Kaushik Forbes MD
[2019-03-01] MEDS: CYMBALTA PO SCH (23:55)
[2019-03-01] MEDS: ABILIFY PO SCH (23:55)
[2019-03-01] MEDS: LIPITOR PO SCH (23:56)
[2019-03-02] MEDS: NS 1,000 ML IV SCH ×2 (00:01→16:06)
[2019-03-02] MEDS: FLAGYL 500 MG/NS 500 MG/100 ML IVPB IV SCH ×3 (00:02→16:07)
[2019-03-02 06:23] LABS: BASO# 0.06 X1000 (0.0-0.2); BASO% 0.7 % (0.0-0.8); EOS% 2.4 % (0.0-10.0); HEMATOCRIT 36.1 % (37.0-47.0); HEMOGLOBIN 11.6 g/dL (12.0-16.0); IMM GRAN# 0.02 X1000 (0.0-0.04); IMM GRAN% 0.2 % (0.0-0.5); LYMPH# 1.63 X1000 (1.2-3.4); LYMPH% 19.2 % (20.5-51.1); MCH 25.4 PG (27-31); MCHC 32.1 g/dL (33-37); MCV 79.2 FL (81-99); MONO# 0.53 X1000 (0.11-0.59); MONO% 6.2 % (1.7-9.3); MPV 10.1 FL (7.4-10.4); NEUT# 6.07 X1000 (1.4-6.5); NEUT% 71.3 % (42.2-75.2); PLT 255 X1000 (130-400); RBC 4.56 XMIL (4.2-5.4); RDW 14.8 % (11.5-14.5); WBC 8.51 X1000 (4.8-10.8)
[2019-03-02] MEDS: PROTONIX PO SCH (06:30)
[2019-03-02] MEDS: HUMALOG SUBQ SCH ×3 (06:30→18:57)
[2019-03-02 06:49] LABS: AGAP 11; BUN 8 mg/dL (8-22); CALCIUM 8.5 mg/dL (8.8-10.2); CHLORIDE 103 mmol/L (98-107); COSMO 278; CREATININE 0.6 mg/dL (0.5-0.9); ESTIMATED GFR > 60; GLUCOSE 109 mg/dL (70-104); POTASSIUM 3.3 mmol/L (3.5-5.1); SODIUM 140 mmol/L (136-145); TCO2 26 mmol/L (25-35)
[2019-03-02 06:51] LABS: EOS 1 % (1-10); LYMPHS 20 % (21-51); MONO 5 % (1-9); SEGS 74 % (42-75)
--- NOTE | 2019-03-02 08:34 | PROGRESS NOTE ---
DATE: 03/02/2019 Ms. Pak has been admitted for a urinary tract infection and is receiving IV antibiotics but she also has gangrene involving the lateral distal aspect of her left foot. She will need amputations of her 5th and 4th toes, in addition to further debridement of that foot. She does have a palpable pedal pulse involving her left foot. She has been on Brilinta because of a coronary artery stent and I reviewed Dr. Palomo's consult, our blow down helper. It appears that it is okay to stop her Brilinta prior to surgery. I stopped Brilinta this morning. We will make sure that she is off that for about 48 hours prior to proceeding with surgery. cc: Sanaz Vo MD
--- NOTE | 2019-03-02 09:27 | EKG Report ---
Test Performed on : 02/28/2019 4:09:34 PM Test Reason : ASHD/preoperative cardiac evaluation Blood Pressure : / mmHG Vent. Rate : 087 BPM Atrial Rate : 087 BPM P-R Int : 146 ms QRS Dur : 084 ms QT Int : 382 ms P-R-T Axes : 060 -10 057 degrees QTc Int : 459 ms Normal sinus rhythm. Normal ECG When compared with ECG of 12-NOV-2018 09:02, No significant change was found Confirmed by Bogdan CORONA, Ramses Tyler ([id number]) on 03/03/2019 10:00:01 AM
[2019-03-02] MEDS: COZAAR PO SCH (10:39)
[2019-03-02] MEDS: COREG PO SCH ×2 (10:39→21:59)
[2019-03-02] MEDS: LASIX PO SCH (10:41)
[2019-03-02] MEDS: VITAMIN D PO SCH (11:20)
[2019-03-02] MEDS: DULCOLAX PR SCH (11:20)
[2019-03-02] MEDS: MIRALAX PO SCH (11:21)
[2019-03-02] MEDS: PLAQUENIL PO SCH (11:21)
[2019-03-02] MEDS: RANEXA PO SCH (11:23)
--- NOTE | 2019-03-02 13:45 | PROGRESS NOTE ---
DATE: 03/02/2019 SUBJECTIVE: Patient is resting comfortably in bed. OBJECTIVE: Vital Signs: Temperature 98.5 degrees, pulse 95, respiratory rate is 22, blood pressure is 172/82, oxygen saturation is 99%. HEENT: Atraumatic, normocephalic. Cardiovascular System: S1 and S2. Respiratory System: Has evidence of good air entry bilaterally. Abdomen: Soft, nontender. No masses felt. Extremities: The wound site on the left foot is dressed. Central Nervous System: No obvious focal deficits noted. Labs: WBC is 8.51 hematocrit 36.1, with a platelet count of 255,000. Sodium is 140, potassium is 3.3, chloride is 103, bicarb 26, BUN is 8, creatinine 0.6. ASSESSMENT AND PLAN: 1. Diabetic foot infection. Continue antibiotic regimen. Infectious disease on board. General surgery consulted. 2. Urinary tract infection secondary to Klebsiella pneumoniae. Continue antibiotics as recommended by infectious disease. 3. Stage II sacral decubitus ulcer. Continue local wound care. 4. Diabetes mellitus. Continue to monitor blood sugar levels and maintain patient on sliding scale insulin. 5. Gastrointestinal prophylaxis. Proton pump inhibitor. cc: Kaushik Forbes MD
[2019-03-02] MEDS: ROCEPHIN 1 GM in NS 50 ML IV SCH (16:06)
--- NOTE | 2019-03-02 18:57 | INFECTIOUS DISEASE PROGRESS NO ---
DATE: 03/02/2019 PRESENT ILLNESS: Ms. Pak is being treated for gangrene and osteomyelitis of the left foot, which has grown Providencia stuartii. She also has a Klebsiella urinary tract infection. MEDICATIONS: Yesterday she was started on ceftriaxone 1 g IV every 24 hours and Flagyl 500 mg IV every 8 hours. PHYSICAL EXAMINATION: Vital Signs: Temperature is 98.5 degrees, pulse rate 95 respiratory rate 22, blood pressure 175/92, O2 saturation is 99% on room air. General: This is a chronically ill- appearing middle-aged female. She is lying in bed, currently in no acute distress. HEENT: Atraumatic, normocephalic. Oral mucous membranes are pink and moist. Conjunctivae are pink. Cardiovascular: Heart rate and rhythm are regular. Normal sinus rhythm on the monitor. Respiratory: Lung sounds are clear to auscultation bilaterally. Diminished in bases. Abdomen: Soft, round, and nontender. Bowel sounds are active. Extremities: There is a dressing in place to the left foot, not removed at this time. Neurologic: She is awake, alert, and oriented. Able to move all extremities to request with generalized weakness noted. DIAGNOSTIC STUDIES: Today her white count is 8.51, hemoglobin 11.6, platelet count 255,000. Creatinine is 0.6, estimated GFR is greater than 60. Her left little toe has grown a Providencia stuartii. Her urine has grown Klebsiella pneumoniae. Blood cultures have shown no growth after 48 hours. The foot x-ray done yesterday afternoon shows osteomyelitis of the 4th and 5th metatarsals and proximal phalanges. ASSESSMENT AND PLAN: Ms. Pak is being treated for a gangrene of the left foot with osteomyelitis. The plan is for her to have amputations of the 4th and 5th toes. She will have to get the Brilinta out of her system before she is ready to go to surgery. There is also a Klebsiella urinary tract infection. For now, we will continue the Rocephin and Flagyl as ordered. These plans have been discussed with and recommended by Dr. Prakash. COMORBIDITIES: For Ms. Pak include that she is a bed bound resident of halfway facility, with coronary artery disease, diabetes mellitus, and lupus. Dictated by TC Vasquez for Lobito Prakash MD cc: Lobito Prakash MD [facility]
[2019-03-03] MEDS: CYMBALTA PO SCH ×2 (01:37→21:52)
[2019-03-03] MEDS: ABILIFY PO SCH ×2 (01:38→21:52)
[2019-03-03] MEDS: HUMALOG SUBQ SCH ×5 (01:38→21:53)
[2019-03-03] MEDS: MIRALAX PO SCH ×3 (01:39→21:52)
[2019-03-03] MEDS: RANEXA PO SCH ×3 (01:39→21:51)
[2019-03-03] MEDS: LIPITOR PO SCH ×2 (01:40→21:51)
[2019-03-03] MEDS: FLAGYL 500 MG/NS 500 MG/100 ML IVPB IV SCH ×3 (02:08→18:11)
[2019-03-03 06:10] LABS: BASO# 0.03 X1000 (0.0-0.2); BASO% 0.4 % (0.0-0.8); EOS% 2.4 % (0.0-10.0); HEMATOCRIT 31.5 % (37.0-47.0); HEMOGLOBIN 10.1 g/dL (12.0-16.0); IMM GRAN# 0.03 X1000 (0.0-0.04); IMM GRAN% 0.4 % (0.0-0.5); LYMPH# 1.44 X1000 (1.2-3.4); LYMPH% 17.2 % (20.5-51.1); MCH 25.4 PG (27-31); MCHC 32.1 g/dL (33-37); MCV 79.1 FL (81-99); MONO% 8.4 % (1.7-9.3); MPV 10.1 FL (7.4-10.4); NEUT# 5.95 X1000 (1.4-6.5); NEUT% 71.2 % (42.2-75.2); PLT 221 X1000 (130-400); RBC 3.98 XMIL (4.2-5.4); RDW 14.6 % (11.5-14.5); WBC 8.35 X1000 (4.8-10.8)
[2019-03-03 06:56] LABS: AGAP 11; BUN 10 mg/dL (8-22); CALCIUM 7.6 mg/dL (8.8-10.2); CHLORIDE 102 mmol/L (98-107); COSMO 279; CREATININE 0.7 mg/dL (0.5-0.9); ESTIMATED GFR > 60; GLUCOSE 204 mg/dL (70-104); POTASSIUM 3.5 mmol/L (3.5-5.1); SODIUM 137 mmol/L (136-145); TCO2 24 mmol/L (25-35)
[2019-03-03] MEDS: PROTONIX PO SCH (07:30)
[2019-03-03] MEDS: NS 1,000 ML IV SCH (08:02)
[2019-03-03] MEDS: VITAMIN D PO SCH (08:06)
[2019-03-03] MEDS: DULCOLAX PR SCH (08:06)
[2019-03-03] MEDS: COZAAR PO SCH (08:06)
[2019-03-03] MEDS: COREG PO SCH ×2 (08:13→21:51)
[2019-03-03] MEDS: LASIX PO SCH (08:15)
[2019-03-03] MEDS: PLAQUENIL PO SCH (09:45)
--- NOTE | 2019-03-03 15:25 | PROGRESS NOTE ---
DATE: 03/03/2019 SUBJECTIVE: This morning, Ms. Pak refers to be doing fairly okay. Denies any new complaints. OBJECTIVE: Vital signs: Blood pressure is 155/71, pulse of 83, respirations 20, temperature 98.3. The patient was saturating 97% on room air. General: Ms. Pak is a 58-year-old, female. She is in bed. Not seemingly distressed. HEENT: Mucosa is pink and moist. Anicteric. Acyanotic. Neck: Supple. Chest: Clear to auscultation. Cardiovascular: Regular rate and rhythm. Abdomen: Soft, nontender. Bowel sounds present. Extremities: The left lower extremity is well dressed. Right is unremarkable. The patient does show remarkable signs of atrophy, especially in the hands consistent with longstanding diabetic peripheral neuropathy. LABORATORY DATA: WBC is 8.35, hemoglobin is 10.1, platelet count of 221. Chemistry is also reviewed. Glucose is 204. A1c on admission was 6.7. Urinalysis was positive for Klebsiella pneumonia. The toe culture did show Providencia stuartii. ASSESSMENT: 1. Left diabetic foot infection with associated osteomyelitis. The patient is pending a 4th and 5th digit amputation. However, because she was on Brilinta, surgery prefers to wait 48 hours before the surgery. 2. Klebsiella pneumoniae urinary tract infection. 3. Providencia stuartii wound infection of the diabetic foot. The patient is on antibiotics and Infectious disease is on board. 4. Diabetes mellitus. We will continue with insulin. 5. History of coronary artery disease status post stents, currently asymptomatic. 6. Advanced peripheral diabetic neuropathy, noted. cc: Luis Armando Null MD
[2019-03-03] MEDS: ROCEPHIN 1 GM in NS 50 ML IV SCH (17:29)
[2019-03-04] MEDS: FLAGYL 500 MG/NS 500 MG/100 ML IVPB IV SCH ×2 (01:07→10:40)
[2019-03-04] MEDS: PROTONIX PO SCH (06:15)
[2019-03-04] MEDS: NS 1,000 ML IV SCH ×3 (06:16→22:15)
[2019-03-04] MEDS: HUMALOG SUBQ SCH ×4 (07:27→20:45)
[2019-03-04] MEDS: COREG PO SCH ×2 (10:40→20:44)
[2019-03-04] MEDS: COZAAR PO SCH (10:41)
[2019-03-04] MEDS: LASIX PO SCH (10:42)
[2019-03-04] MEDS: DULCOLAX PR SCH (10:42)
[2019-03-04] MEDS: MIRALAX PO SCH ×2 (10:42→20:47)
[2019-03-04] MEDS: RANEXA PO SCH ×2 (10:43→20:44)
[2019-03-04] MEDS: PLAQUENIL PO SCH (10:43)
[2019-03-04] MEDS: VITAMIN D PO SCH (10:43)
--- NOTE | 2019-03-04 12:33 | INFECTIOUS DISEASE PROGRESS NO ---
DATE: 03/04/2019 PRESENT ILLNESS: The patient has gangrene and osteomyelitis of the left foot from which Providencia grew and a Klebsiella urinary tract infection. Based on the foul odor that the patient's left foot has, I suspect there could well be an anaerobic organism along with along with Providencia causing her infection. MEDICATIONS: The patient is receiving Rocephin to treat both the Providencia and Klebsiella infections and Flagyl to treat probable anaerobic infection involving the left foot. PHYSICAL EXAMINATION: Vital Signs: Temperature is 98.1 degrees, pulse 75, respirations 24, blood pressure 138/69. General: This is a chronically ill-appearing, middle-aged female. She is in no acute distress. Head, eyes, ears, nose, and throat: She can hear my spoken words and see near objects. She does not have any white coating on her tongue. Neck: There is no neck pain when she moves her head or neck. Lungs: Clear to auscultation. Cardiovascular: Heart rate is regular. Abdomen: Soft and nontender. Extremities: I removed the dressing from the patient's left foot. It still has a foul odor. There was gangrene on the lateral aspect of the foot along with purulence. Neurologic: The patient is alert. She can move her extremities. She has decreased sensation in her feet. There is no tremor. LABS AND RADIOLOGY DATA: The patient's CBC shows a white count of 8350, hemoglobin 10.1, and platelet count 221,000. Creatinine is 0.7, GFR is greater than 60. ASSESSMENT AND PLAN: I plan to continue with Rocephin and Flagyl. Based on Dr. Vo's note yesterday, he stopped Brilinta and he plans on operating on the patient 48 hours from doing this so she should be operated on tomorrow. I am going to continue with the Rocephin and Flagyl. COMORBIDITIES: Patient is bed bound, resident of a alf facility. She has diabetes mellitus, lupus, and coronary artery disease. cc: Lobito Prakash MD
--- NOTE | 2019-03-04 14:52 | PROGRESS NOTE ---
DATE: 03/04/2019 SUBJECTIVE: Today, Ms. Pak refers to be feeling okay. No new complaint. The older sister was at the bedside at the time of the encounter. OBJECTIVE: Vital Signs: Blood pressure is 138/69, pulse of 75, respirations are 24, temperature is 98.1 degrees, the patient is saturating 100%. General Examination: Ms. Pak is a 58-year- old, female. She is in bed. No distress. HEENT: Mucosa is pink and moist. Anicteric. Acyanotic. Neck: Supple. Chest: Good air entry bilaterally. There were no crepitations. No rhonchi. Cardiovascular: Regular rate and rhythm. No murmurs, no rubs, no gallops. Langford beat at the 5th intercostal space, midclavicular line. GI: Abdomen is soft, nontender. Bowel sounds are present. CONSUMER INSIGHTS INTERN: The patient is awake, alert, and oriented. There are atrophic changes in the upper extremities, which is consistent with longstanding diabetic peripheral neuropathy. The left foot is in a sterile dressing. Laboratory Data: Glucose is 164. The patient's current medications have all been reviewed. She is still on ceftriaxone 1 g q.12 hours (today is day 3) and Flagyl also day 3 has been switched to oral. ASSESSMENT: 1. Left diabetic foot infection with associated osteomyelitis. There is a plan for fourth and fifth digit amputation by surgery. 2. Klebsiella pneumoniae urinary tract infection. 3. Providencia stuartii wound infection of the diabetic left foot. The patient is on antibiotics. 4. Diabetes mellitus. We will continue with insulin management. 5. History of coronary artery disease, currently asymptomatic. 6. Advanced peripheral diabetic neuropathy, noted. PLAN: We are going to continue addressing the patients's numerous comorbidities. Brilinta has been withheld and we anticipate surgery either tomorrow or Saturday. We will be waiting on surgery for their recommendations. cc: Luis Armando Null MD
[2019-03-04] MEDS: FLAGYL PO SCH ×2 (15:39→23:05)
[2019-03-04] MEDS: ROCEPHIN 1 GM in NS 50 ML IV SCH (15:39)
[2019-03-04] MEDS: CALMOSEPTINE OINTMENT TOP PRN (20:38)
[2019-03-04] MEDS: LIPITOR PO SCH (20:44)
[2019-03-04] MEDS: CYMBALTA PO SCH (20:46)
[2019-03-04] MEDS: ABILIFY PO SCH (20:47)
[2019-03-05] MEDS: NS 1,000 ML IV SCH ×2 (01:00→08:20)
[2019-03-05] MEDS: FLAGYL PO SCH ×2 (05:08→16:44)
[2019-03-05] MEDS: PROTONIX PO SCH (06:22)
[2019-03-05] MEDS: HUMALOG SUBQ SCH ×3 (06:30→22:34)
[2019-03-05] MEDS: CALMOSEPTINE OINTMENT TOP PRN (06:31)
[2019-03-05] MEDS: COREG PO SCH ×2 (08:19→22:31)
[2019-03-05] MEDS: COZAAR PO SCH (08:19)
[2019-03-05] MEDS: MIRALAX PO SCH ×2 (08:19→22:33)
[2019-03-05] MEDS: LASIX PO SCH (08:20)
[2019-03-05] MEDS: DULCOLAX PR SCH (08:20)
[2019-03-05] MEDS: VITAMIN D PO SCH (08:20)
[2019-03-05] MEDS: RANEXA PO SCH ×2 (08:20→22:31)
[2019-03-05] MEDS: PLAQUENIL PO SCH (08:21)
--- NOTE | 2019-03-05 10:32 | PROGRESS NOTE ---
DATE: 03/05/2019 SUBJECTIVE: This morning, Ms. Pak refers to be doing fairly okay. No new complaints. She is still awaiting on surgery readiness for the digit amputations. OBJECTIVE: Vital Signs: Blood pressure is 154/81, pulse of 84, respirations are 20, temperature is 97.4 degrees, the patient is saturating 99% on room air. General Examination: Ms. Pak is a 58-year-old, female. She is in bed. No distress. HEENT: Mucosa is pink and moist. Anicteric. Acyanotic. Neck: Supple. Chest: Good air entry bilaterally. There were no crepitations. No rhonchi. Cardiovascular: Regular rate and rhythm. No murmurs, no rubs, no gallops. GI: Abdomen is soft, nontender. Bowel sounds present. POUND KEEPER: The patient is awake, alert, oriented. There are chronic changes in the upper extremities consistent with long-standing diabetic peripheral neuropathy. The left lower extremity is still in a sterile dressing. Laboratory Data: Glucose is 138. ASSESSMENT: 1. Providencia stuartii left diabetic foot wound infection associated with osteomyelitis. There is a plan for the 4th and the 5th digit amputation by surgery, hopefully today or tomorrow. 2. Klebsiella pneumoniae urinary tract infection. Patient continues to be on adequate antimicrobial therapy. Infectious disease is on board. 3. Diabetes mellitus. We will continue with insulin management. 4. Advanced peripheral diabetic neuropathy, noted. The patient has been started on gabapentin. 5. History of coronary artery disease. Currently asymptomatic. 6. Microcytic anemia. We will do iron studies to rule out any potential iron deficiencies. PLAN: In general, I think Ms. Pak is fairly stable. Diabetes is under control. She is currently asymptomatic of any cardiac pathology. We are pending surgery evaluation for the digit amputation either today or tomorrow. I think Ms. Pak is clinically stable for the surgery. cc: Luis Armando Null MD
--- NOTE | 2019-03-05 15:01 | INFECTIOUS DISEASE PROGRESS NO ---
DATE: 03/05/2019 HISTORY OF PRESENT ILLNESS: The patient has gangrene and osteomyelitis of the left foot from which Providencia grew and Klebsiella urinary tract infection. Based on the fact that the patient's left foot has a foul odor, I suspect that there could well be anaerobic organisms present in her foot. MEDICATIONS: This is the 4th day of treatment with a combination of Rocephin IV and Flagyl which initially was given IV and yesterday I changed it over to p.o. PHYSICAL EXAMINATION: Vital Signs: Temperature is 97.4 degrees, pulse 84, respirations 20, blood pressure 154/81. General: This is a chronically ill-appearing middle-aged female. She is in no acute distress. She does not have any white patches in her mouth. Neck: She does not have any neck pain when she moves her head or neck. Lungs: Clear to auscultation. Cardiovascular: Heart rate is regular. Abdomen: Soft and nontender. Extremities: The patient's left foot has a large dressing around it. The foul odor continues from the foot. When I looked at her foot yesterday, there was gangrene on the lateral aspect of the foot along with purulent drainage and a foul odor. Neurologic: The patient is alert. She can move her extremities. She does have decreased sensation in her feet. She does not have a tremor. DIAGNOSTIC STUDIES: Creatinine is 0.7, GFR is greater than 60. CBC shows a white count of 8350, hemoglobin 10.1, and platelet count of 221,000. ASSESSMENT AND PLAN: I plan to continue Rocephin and Flagyl. I talked to Dr. Vo just now on the telephone and he is going to be operating on the patient's foot tomorrow. COMORBIDITIES: The patient is bed-bound. She lives in a nursing facility. She has diabetes mellitus, lupus, and coronary artery disease. cc: Lobito Prakash MD
[2019-03-05] MEDS: ROCEPHIN 1 GM in NS 50 ML IV SCH (16:44)
[2019-03-05] MEDS: LIPITOR PO SCH (22:31)
[2019-03-05] MEDS: ABILIFY PO SCH (22:32)
[2019-03-05] MEDS: NEURONTIN PO SCH (22:33)
[2019-03-05] MEDS: CYMBALTA PO SCH (22:33)
[2019-03-06] MEDS: FLAGYL PO SCH ×2 (01:37→13:37)
[2019-03-06] MEDS: CALMOSEPTINE OINTMENT TOP PRN (01:38)
[2019-03-06 05:46] LABS: HEMATOCRIT 33.3 % (37.0-47.0); HEMOGLOBIN 10.4 g/dL (12.0-16.0); MCH 25.2 PG (27-31); MCHC 31.2 g/dL (33-37); MCV 80.6 FL (81-99); RBC 4.13 XMIL (4.2-5.4); RDW 15.2 % (11.5-14.5); WBC 11.68 X1000 (4.8-10.8)
[2019-03-06 05:58] LABS: AGAP 10; ALBUMIN 2.9 g/dL (3.5-5.0); BUN 12 mg/dL (8-22); CALCIUM 7.8 mg/dL (8.8-10.2); CHLORIDE 102 mmol/L (98-107); COSMO 278; CREATININE 0.7 mg/dL (0.5-0.9); ESTIMATED GFR > 60; GLUCOSE 139 mg/dL (70-104); IRON SATURATION 19 %; PHOSPHORUS 2.6 mg/dL (2.7-4.5); POTASSIUM 2.7 mmol/L (3.5-5.1); SODIUM 138 mmol/L (136-145); TCO2 26 mmol/L (25-35); TIBC 154 ug/dL; TOTAL IRON 29 ug/dL (49-151); UNBOUND IRON 125 ug/dL (112-346)
[2019-03-06] MEDS: PROTONIX PO SCH (06:11)
[2019-03-06 06:17] LABS: FERRITIN 510 ng/mL (13-150)
[2019-03-06] MEDS: COREG PO SCH ×2 (06:20→21:00)
[2019-03-06] MEDS: HUMALOG SUBQ SCH ×2 (06:51→21:00)
[2019-03-06] MEDS ORDERED: POTASSIUM PHOSPHATE 30 MEQ in NS 250 ML IV ONE (08:31)
[2019-03-06] MEDS ORDERED: MAGNESIUM SULFATE 2 GM/S.W.I. 2 GM/50 ML IVPB IV ONE (08:31)
[2019-03-06] MEDS ORDERED: DIPRIVAN 1% ONE (09:27)
[2019-03-06] MEDS ORDERED: XYLOCAINE-MPF 2% ONE (09:27)
[2019-03-06] MEDS ORDERED: EPHEDRINE ONE (10:26)
[2019-03-06] MEDS ORDERED: NEO-SYNEPHRINE ONE (10:32)
--- NOTE | 2019-03-06 12:10 | PROGRESS NOTE ---
DATE: 03/06/2019 SUBJECTIVE: This morning, Ms. Pak refers to be doing fairly okay. No new complaints. Was awaiting to be called for surgery. OBJECTIVE: Vital signs: Blood pressure is 135/66, pulse of 70, respirations 18, temperature 97.4 degrees. General: Ms. Pak is a 58-year-old female. She was in bed, no distress. HEENT: Mucosa is pink and moist. Anicteric. Acyanotic. Neck: Supple. Chest: Good air entry bilateral. There was no crepitations no rhonchi. Cardiovascular: Regular rate and rhythm. No murmurs, no rubs, no gallops. Gastrointestinal: Abdomen is soft, nontender. Bowel sounds present. There was no hepatosplenomegaly. Central nervous system: Patient is awake, alert, oriented. Musculoskeletal: There are changes in the upper extremities consistent with long- standing diabetic peripheral neuropathy. Left lower extremity is still in sterile dressing. LABORATORY DATA: Today, WBC is 11.68, hemoglobin is 10.4, platelet count of 262,000. Chemistry is also reviewed. Potassium is 2.2, phosphorus is 2.6. The rest of her electrolytes are unremarkable. Folate is also remarkably low at .0. CURRENT MEDICATIONS: Have all been reviewed. She is still on ceftriaxone as the antimicrobial. This was started on 03/01/2019. Today is day 5 on that antibiotic. ASSESSMENT AND PLAN: 1. Providencia stuartii left diabetic foot wound infection associated with osteomyelitis. The patient is pending the 4th and the 5th digit amputation today. 2. Klebsiella pneumoniae urinary tract infection. Patient is on ceftriaxone. 3. Diabetes mellitus. We will continue with insulin management. 4. Advanced peripheral diabetic neuropathy. Patient is on gabapentin. 5. History of coronary artery disease. Currently asymptomatic. 6. Microcytic anemia with normal iron studies, likely due to anemia of chronic disease. 7. Folate deficiency. We will start replacing this. 8. Hypokalemia and hypophosphatemia. This will also be replaced. 9. Diarrhea with Clostridium difficile negative, most likely due to medication side effects. We will add lactobacillus to help with restoring the gut maria elena. cc: Luis Armando Null MD
--- NOTE | 2019-03-06 13:32 | INFECTIOUS DISEASE PROGRESS NO ---
DATE: 03/06/2019 PRESENT ILLNESS: Ms. Pak is being treated for a Providencia infection with gangrene and osteomyelitis to her left foot. She also has a Klebsiella urinary tract infection, and a candidal skin infection under her breasts bilaterally. MEDICATIONS: She has been receiving ceftriaxone 1 g IV every 24 hours and Flagyl 500 mg by mouth every 8 hours. PHYSICAL EXAM: Vital Signs: Temperature is 97.4 degrees, pulse rate 70, respiratory rate 18, blood pressure 135/66. O2 saturation 100% on room air. General: This is a chronically ill- appearing, middle-aged female. She is lying in bed, currently in no acute distress. HEENT: Atraumatic, normocephalic. Oral mucous membranes are pink and moist. Conjunctivae are pink. Neck: Supple. Trachea is midline. Respiratory: Lung sounds are clear to auscultation bilaterally. Diminished in the bases. Cardiovascular: Heart rate and rhythm are regular. Normal sinus rhythm on the monitor. Systolic murmur noted. Abdomen: Soft, round and nontender. Bowel sounds are active. Integumentary: The dressing in place to the left foot was not removed. There is a foul odor noted. The patient has a mildly erythematous fungal rash under her breasts bilaterally. Neurologic: She is awake, alert, and oriented. Able to move around in the bed with generalized weakness. She does have diminished sensation to her lower extremities bilaterally with no pain to the left foot. LABORATORY AND X-RAY: Today her white count is 11.68 hemoglobin 10.4, platelet count 262,000. Creatinine is 0.7, estimated GFR is greater than 60. Her urine cultures grew Klebsiella pneumoniae and a culture to her left foot grew Providencia stuartii. Blood cultures have shown no growth after 5 days. And stool for C diff toxin was negative. No imaging reports today. Please go back to physical exam. ASSESSMENT AND PLAN: Ms. Pak has gangrene and osteomyelitis with Providencia growing to her left foot. The plan is for her to go to surgery today for debridement with amputation of the 4th and 5th toes. For now, we will continue Rocephin and Flagyl as ordered. She is also being treated for a Klebsiella urinary tract infection. There is a new fungal rash noted under her breasts bilaterally so clotrimazole cream has been ordered to be put on the rash twice daily. These plans have been discussed with and recommended by Dr. Prakash. COMORBIDITIES: For Ms. Pak include that she is a bed-bound jail patient with coronary artery disease, diabetes mellitus, and lupus. Dictated by TC Vasquez for Lobito Prakash MD cc: Lobito Prakash MD MTD
[2019-03-06] MEDS: LASIX PO SCH (13:37)
[2019-03-06] MEDS: RANEXA PO SCH ×2 (13:37→21:00)
[2019-03-06] MEDS: PLAQUENIL PO SCH (13:38)
[2019-03-06] MEDS: MORPHINE IV PRN ×2 (13:38→20:36)
[2019-03-06] MEDS: VITAMIN D PO SCH (13:38)
[2019-03-06] MEDS: COZAAR PO SCH (13:39)
[2019-03-06] MEDS: LOTRIMIN 1% CREAM TOP SCH ×2 (13:39→22:00)
--- NOTE | 2019-03-06 14:47 | OPERATIVE NOTE ---
PROCEDURE DATE: 03/06/2019 PREOPERATIVE DIAGNOSIS: 1. Gangrene left lateral foot. 2. Gangrene left 5th toe. 3. Gangrene left 4th toe. POSTOPERATIVE DIAGNOSES: 1. Gangrene left lateral foot. 2. Gangrene left 5th toe. 3. Gangrene left 4th toe. PRINCIPAL PROCEDURE: 1. Amputation of left 4th and 5th toes. 2. Debridement of skin, subcutaneous tissue, muscle and tendon lateral left foot. SURGEON: Sanaz Vo MD. ANESTHESIA: General. BLOOD LOSS: 75 mL. DRAINS: None. INDICATIONS: Ms. Gail Pak is a 58-year-old white female diabetic who has been hospitalized with urinary tract infection and she also was admitted with gangrene involving the lateral aspect of her left foot. She has been receiving IV antibiotics and it was felt that she needed debridement of the necrotic tissue involving her left foot. She does have a palpable pedal pulse on the left. FINDINGS: She had gangrene involving her left 5th and 4th toes and they had to be amputated. She also had soft tissue gangrene involving the lateral aspect of her foot which had to be debrided away. We left the wound open. She did have bleeding in the area of the wound. She has a palpable pedal pulse and we will see how this wound heals by secondary intention. DESCRIPTION OF PROCEDURE: The patient was brought to the operating room, placed supine, received general anesthesia, was ventilated. Her left foot and lower leg were prepped and draped within a sterile field. I used a 10 blade scalpel to excise all the necrotic tissue from the lateral aspect of the left foot. I had to amputate her left 5th and 4th toes. I amputated these toes at the metatarsal joint but I also used a bone cutter to transect the distal metatarsal head of the 5th and 4th metatarsal bones. So not only were the toes removed but the distal end of the of the metatarsal bone. We used forceps with teeth, and a 10 blade scalpel to debride all necrotic tissue from the lateral aspect of her foot. We preserved her great toe, second and third toes. The lateral side of her foot was large wound distally. We felt she had some blood supply. We felt we removed any osteomyelitis and all necrotic tissue with sharp debridement. The cautery was used to control bleeding. We thoroughly irrigated the wound and packed it with damp to dry saline dressings to allow it to heal by secondary intention. She tolerated the procedure well with plans for her to go to the recovery room and then return to the floor. cc: Sanaz Vo MD
[2019-03-06] MEDS: CULTURELLE PO SCH (21:00)
[2019-03-06] MEDS: ABILIFY PO SCH (21:00)
[2019-03-06] MEDS: MIRALAX PO SCH (21:00)
[2019-03-06] MEDS: PERIDEX MT SCH (21:00)
[2019-03-06] MEDS: LIPITOR PO SCH (21:00)
[2019-03-06] MEDS: CYMBALTA PO SCH (21:00)
[2019-03-07] MEDS: FLAGYL PO SCH ×4 (01:08→17:26)
[2019-03-07] MEDS: PROTONIX PO SCH (06:09)
[2019-03-07] MEDS: NEURONTIN PO SCH ×2 (06:10→21:15)
--- NOTE | 2019-03-07 06:34 | GENERAL SURGERY PROGRESS NOTE ---
DATE: 03/07/2019 SUBJECTIVE: Patient doing okay, no major issues. OBJECTIVE: Vital Signs: Patient is currently afebrile. Her vital signs stable. General: No acute distress. Cardiovascular: Regular rate and rhythm. Lungs: Grossly clear. Extremities: Dressing intact to the left foot. No active soilage of the dressing. ASSESSMENT/PLAN: 58-year-old female status post amputation of left 4th and 5th toes with debridement of skin, subcutaneous tissue, muscle and tendon on the lateral left foot. #1 postop state. At this time patient seems to be doing okay. We will continue current treatment. Hospitalists are managing her medical comorbidities. cc: Tacos Mckinnon MD
[2019-03-07] MEDS: MORPHINE IV PRN ×3 (07:00→21:43)
[2019-03-07] MEDS: HUMALOG SUBQ SCH ×6 (07:04→21:21)
[2019-03-07] MEDS: PERIDEX MT SCH ×2 (10:24→21:35)
[2019-03-07] MEDS: DULCOLAX PR SCH (10:24)
[2019-03-07] MEDS: MIRALAX PO SCH ×2 (10:24→21:16)
[2019-03-07] MEDS: RANEXA PO SCH ×2 (10:26→21:13)
[2019-03-07] MEDS: CULTURELLE PO SCH ×2 (10:27→21:15)
[2019-03-07] MEDS: COREG PO SCH ×3 (10:27→21:15)
[2019-03-07] MEDS: LASIX PO SCH (10:27)
[2019-03-07] MEDS: COZAAR PO SCH (10:28)
[2019-03-07] MEDS: VITAMIN D PO SCH (10:28)
[2019-03-07] MEDS: LOTRIMIN 1% CREAM TOP SCH ×2 (10:31→21:15)
[2019-03-07] MEDS: PLAQUENIL PO SCH (11:19)
--- NOTE | 2019-03-07 14:00 | PROGRESS NOTE ---
DATE: 03/07/2019 SUBJECTIVE: This morning, Ms. Pak refers to be doing fairly okay. Denied any complaints. She has been tolerating her diet, and she has also been having adequate bowel movement. OBJECTIVE: Vital signs: Blood pressure is 156/75, pulse 80, respirations 20, temperature 97.8. The patient is saturating 98% on room air. General: Ms. Pak is a 58-year-old female. She is in bed. In no distress. Mucosa is pink and moist. Anicteric and acyanotic. Neck is supple. Chest: Good air entry bilaterally. No crepitations. No rhonchi. Cardiovascular: Regular rate and rhythm. No murmurs, no rubs, no gallops. GI: Abdomen is soft, nontender. Bowel sounds present. Extremities: No pedal edema. The left lower extremity is totally in a sterile dressing. There are changes in the upper extremity consistent with atrophy and sensation deficit characteristic of longstanding diabetic peripheral neuropathy. DIAGNOSTIC DATA: No lab work for today. CURRENT MEDICATIONS: 1. Abilify 5 mg p.o. nightly at bedtime. 2. Lipitor 40 mg p.o. daily. 3. Dulcolax 10 mg p.o. daily. 4. Coreg 12.5 b.i.d. 5. Ceftriaxone 1 g IV q.24. 6. Vitamin D. 7. Lasix 20 mg p.o. daily. 8. Gabapentin 100 mg p.o. nightly at bedtime. 9. Plaquenil 200 mg p.o. daily. 10.Insulin sliding scale. 11.Culturelle 1 tablet b.i.d. 12.Losartan 25 mg p.o. daily. 13.Melatonin 6 mg p.o. nightly at bedtime. 14.Flagyl 500 p.o. q.8. 15.P.r.n. morphine. 16.Ranexa 500 b.i.d. ASSESSMENT: 1. Providencia stuartii left diabetic foot infection associated with osteomyelitis. The patient is status post fourth and fifth digit amputation. Yesterday or today is day 1 postop. Surgery is onboard. 2. Klebsiella pneumoniae urinary tract infection. The patient has had adequate treatment. 3. Diabetes mellitus. We will continue insulin regimen. 4. Advanced peripheral diabetic neuropathy. The patient is on gabapentin. 5. History of coronary artery disease, currently asymptomatic. We will continue with home medication regimen. 6. Microcytic anemia with normal iron studies secondary to anemia of chronic disease. Hemoglobin and hematocrit are stable. 7. Folate deficiency. We will continue to replace. 8. Diarrhea, resolved. Most likely due to medication side effect. PLAN: In general, Ms. Pak is day 1 post digit amputation. She seems to be doing well, with pending further recommendations from ID and Surgery. The patient is a resident of [facility], and the plan is to send her back, hopefully on Saturday. cc: Luis Armando Null MD
[2019-03-07] MEDS: ROCEPHIN 1 GM in NS 50 ML IV SCH (17:24)
[2019-03-07] MEDS: ABILIFY PO SCH (21:14)
[2019-03-07] MEDS: CYMBALTA PO SCH (21:14)
[2019-03-07] MEDS: LIPITOR PO SCH (21:15)
[2019-03-08] MEDS: FLAGYL PO SCH ×3 (01:29→16:18)
[2019-03-08] MEDS: PROTONIX PO SCH (06:38)
[2019-03-08] MEDS: HUMALOG SUBQ SCH ×6 (06:39→21:58)
--- NOTE | 2019-03-08 08:39 | GENERAL SURGERY PROGRESS NOTE ---
DATE: 03/08/2019 Reviewed notes from the hospitalist. It seems like we are trying to get her arranged for potential discharge on Saturday. Her wound dressing is intact. She has been stable. We will continue to monitor. cc: Tacos Mckinnon MD
[2019-03-08] MEDS: LASIX PO SCH (10:04)
[2019-03-08] MEDS: PLAQUENIL PO SCH (10:04)
[2019-03-08] MEDS: PERIDEX MT SCH ×2 (10:05→21:58)
[2019-03-08] MEDS: COREG PO SCH ×2 (10:05→21:39)
[2019-03-08] MEDS: RANEXA PO SCH ×2 (10:05→21:38)
[2019-03-08] MEDS: CULTURELLE PO SCH ×2 (10:05→21:40)
[2019-03-08] MEDS: COZAAR PO SCH (10:05)
[2019-03-08] MEDS: VITAMIN D PO SCH (10:06)
[2019-03-08] MEDS: MIRALAX PO SCH ×2 (10:11→21:39)
[2019-03-08] MEDS: DULCOLAX PR SCH (10:11)
[2019-03-08] MEDS: LOTRIMIN 1% CREAM TOP SCH ×2 (10:12→21:41)
--- NOTE | 2019-03-08 11:51 | PROGRESS NOTE ---
DATE: 03/08/2019 SUBJECTIVE: This morning, Ms. Gail Pak refers to be doing a lot better. Denies any complaints. OBJECTIVE: Vital Signs: Blood pressure is 143/57, pulse 82, respirations 18, temperature 97.9 degrees, the patient is saturating 99% on room air. General: Ms. Pak is a 58-year-old female. She was in bed. No distress. HEENT: Mucosa is pink and moist. Anicteric. Acyanotic. Neck: Supple. Chest: Clear to auscultation. No crepitations. No rhonchi. Cardiovascular: Regular rate and rhythm. No murmurs, no rubs, no gallops. Abdomen: Soft, nontender. Extremities: No pedal edema. Left lower extremity is in sterile dressing. I understand Surgery has reviewed the wounds. LABORATORY DATA: Glucose is 157. MEDICATIONS: Medications have all been reviewed, and no changes. ASSESSMENT: 1. Providencia stuartii left diabetic foot infection associated with osteomyelitis. The patient is status post fourth and fifth digit amputation. Today is day 2 postoperative. Surgery is on board. Wound has been reviewed by Surgery. 2. Klebsiella pneumoniae urinary tract infection. 3. Diabetes mellitus. The patient is on insulin regimen. 4. Advanced peripheral diabetic neuropathy. The patient is on gabapentin. 5. History of coronary artery disease, currently asymptomatic. 6. Anemia of chronic disease. 7. Folate deficiency. Will continue replacement. 8. History of neurogenic bladder with chronic indwelling Barboza catheter. cc: Luis Armando Null MD
[2019-03-08] MEDS: MORPHINE IV PRN (14:42)
[2019-03-08] MEDS ORDERED: MELATONIN PO PRN (16:11)
[2019-03-08] MEDS ORDERED: MORPHINE IV PRN (16:12)
[2019-03-08] MEDS: ROCEPHIN 1 GM in NS 50 ML IV SCH ×2 (16:18→16:25)
[2019-03-08] MEDS ORDERED: CYMBALTA PO SCH (20:00)
[2019-03-08] MEDS ORDERED: ABILIFY PO SCH (21:00)
[2019-03-08] MEDS ORDERED: LIPITOR PO SCH (21:00)
[2019-03-08] MEDS: NEURONTIN PO SCH (21:39)
[2019-03-09] MEDS: FLAGYL PO SCH ×3 (00:12→17:01)
[2019-03-09] MEDS: HUMALOG SUBQ SCH ×3 (07:59→17:01)
[2019-03-09] MEDS ORDERED: DULCOLAX PR SCH (09:00)
[2019-03-09] MEDS ORDERED: LASIX PO SCH (09:00)
[2019-03-09] MEDS ORDERED: VITAMIN D PO SCH (09:00)
[2019-03-09] MEDS ORDERED: PLAQUENIL PO SCH (09:00)
[2019-03-09] MEDS ORDERED: COZAAR PO SCH (09:00)
[2019-03-09] MEDS: PERIDEX MT SCH (10:09)
[2019-03-09] MEDS: COREG PO SCH (10:10)
[2019-03-09] MEDS: CULTURELLE PO SCH (10:11)
[2019-03-09] MEDS: RANEXA PO SCH (10:11)
[2019-03-09] MEDS: MIRALAX PO SCH (10:12)
[2019-03-09] MEDS: LOTRIMIN 1% CREAM TOP SCH (10:13)
[2019-03-09] MEDS ORDERED: SANTYL OINT TOP SCH (10:15)
--- NOTE | 2019-03-09 10:53 | INFECTIOUS DISEASE PROGRESS NO ---
DATE: 03/09/2019 PRESENT ILLNESS: The patient had a Providencia gangrenous cellulitis and osteomyelitis of her left foot. She also had a Klebsiella urinary tract infection. Recently, she developed a Macy dermatitis involving the skin under both breasts. MEDICATIONS: The patient has been receiving Rocephin intravenously and Flagyl by mouth. Three days ago, topical Lotrimin cream was started also. PHYSICAL EXAMINATION: Vital Signs: Temperature is 98.1 degrees, pulse 77, respirations 16, blood pressure 139/61. General: This is a chronically ill-appearing middle-aged female. She is in no acute distress. Head, Eyes, Ears, Nose, and Throat: She can hear my spoken words and see near objects. She does not have any white coating on her tongue. Neck: She does not have any pain in her neck when she moves her neck or her head. Lungs: Clear to auscultation. Cardiovascular: Heart rate is regular with a systolic murmur. Abdomen: Soft and nontender. Integument: I inspected the rash under both breasts and the dermatitis is clearing up. Extremities: I removed the dressing from the left foot. The tissue remaining is beefy red in color in many areas. There are few very small areas that have some necrotic material. The debridement seems to be very thorough. I read Dr. Vo's note, and he states that he was able to remove all of the infected bone. Neurologic: Patient is awake. She can move her extremities. There is no tremor. DIAGNOSTIC STUDIES: There is no lab and no x-ray for today. ASSESSMENT AND PLAN: The patient has been treated for gangrenous cellulitis and osteomyelitis of the foot, and for a urinary tract infection. I think that the patient's foot has been thoroughly debrided and the involved bone infection has been removed by Dr. Vo. Also, I think the patient's urinary tract infection has cleared so that she does not require any further antibiotic therapy when she leaves the hospital and goes back to her senior living. As regarding the patient's fungal dermatitis under both breasts, I would suggest continuing Lotrimin cream every 12 hours to both sites of the dermatitis under both breasts until it clears. My plan now is that I am signing off on the patient's case at this time, but I am available to see her on a p.r.n. basis. PATIENT'S COMORBIDITIES: 1. She is bed bound in the senior living. 2. She has diabetes mellitus. 3. Systemic lupus. cc: Lobito Prakash MD
[2019-03-09 14:04] VITALS: BP 121/64
--- NOTE | 2019-03-09 15:29 | DISCHARGE SUMMARY ---
ADMISSION DATE: 02/27/2019 DISCHARGE DATE: 03/09/2019 DISPOSITION: Back to [facility]. FOLLOWUP: 1. Dr. Prakash. 2. Dr. Garcia. 3. Dr. Palomo. 4. Dr. Vo. CONSULTATION DURING THIS ADMISSION: 1. Surgery was consulted. The patient was seen by Dr. Vo. 2. Infectious Disease was consulted. The patient was seen by Dr. Prakash. INVASIVE PROCEDURES DONE DURING THIS ADMISSION: Amputation of left fourth and fifth toe. Debridement of skin, soft tissue, muscle, and tendon, lateral left foot. IMAGING STUDIES OF SIGNIFICANCE: 1. A chest x-ray was done which was negative. 2. A foot x-ray showed osteomyelitis involving the fourth and fifth metatarsal. DIAGNOSES ON ADMISSION: 1. Left foot gangrene of fourth and fifth toes. 2. Urinary tract infection. 3. Stage 2 sacral decubitus ulcer. 4. Diabetes mellitus. DIAGNOSES AT THE TIME OF DISCHARGE: 1. Providencia stuartii left diabetic foot infection associated with osteomyelitis. The patient is status post fourth and fifth digit amputation. 2. Klebsiella pneumoniae urinary tract infection, completely treated. 3. Diabetes mellitus. 4. Advanced peripheral diabetic neuropathy. 5. History of coronary artery disease. 6. Anemia of chronic disease. 7. Folate deficiency. 8. Neurogenic bladder with chronic indwelling Barboza catheter. 9. Stage 2 decubitus ulcer. DISCHARGE MEDICATIONS: 1. Atorvastatin 40 mg p.o. at bedtime. 2. Aspirin 81 mg daily. 3. Vitamin D. 4. Melatonin 6 mg p.o. at bedtime. 5. Dulcolax 10 mg p.o. p.r.n. 6. Losartan 25 mg daily. 7. Ranexa 500 b.i.d. 8. Carvedilol 12.5 b.i.d. 9. Brilinta 90 mg b.i.d. 10.Abilify 5 mg p.o. at bedtime. 11.Mirtazapine 50 mg p.o. at bedtime. 12.Hydroxychloroquine 200 mg p.o. daily. 13.Lasix 20 mg p.o. daily. 14.Buspirone 5 mg p.o. daily. 15.Cymbalta 60 mg p.o. at bedtime. 16.Gabapentin 100 mg p.o. at bedtime. 17.Lactobacillus. 18.Pantoprazole 40 mg daily. PRESENTING COMPLAINT: Necrotic tissue to left foot. HISTORY OF PRESENTING COMPLAINT: Ms Pak is a 58-year-old female who is a resident of [facility]. She is known to have multiple comorbidities including coronary artery disease, hypertension, dyslipidemia, and diabetes. She came to the emergency department because of infection to the left foot. Upon presentation, the patient was evaluated and was found to have necrotic tissue. X-ray revealed osteomyelitis. She was admitted for further medical care. HOSPITAL COURSE: Ms Pak was initially started on broad spectrum IV antibiotics. She was adequately fluid resuscitated and both ID and Surgery were consulted. During the hospital course, Ms. Pak underwent surgical intervention which included amputation of the left fourth and fifth toes and also debridement of some subcutaneous necrotic tissues. Postoperatively, Ms. Pak continues to improve. All of her other comorbidities were addressed. She was also found to have UTI and was treated accordingly. The patient was seen by multiple subspecialities including ID, Surgery, and Cardiology. Today, Ms Pak refers to feel a lot better. She is completely asymptomatic. She has been eating well during the hospital course and has had normal bowel movement. Ms Pak also has indwelling Barboza catheter. Today, her vitals are stable. Blood pressure is 121/64, pulse 80, respirations 18, temperature 98.7. She is deemed stable for discharge. She will follow up with Dr. Vo as well as Dr. Prakash. Other discharge instructions have been discussed with her and she voiced understanding. TIME SPENT FOR DISCHARGE: 34 minutes. cc: MD Cooper Diaz MD Leroy F. Harris, MD Luis N. Villanueva, MD Lynn R. Buckner, MD
[2019-03-09] MEDS: ROCEPHIN 1 GM in NS 50 ML IV SCH (17:02)
--- NOTE | 2019-03-12 15:59 | DISCHARGE SUMMARY ---
ADMISSION DATE: 02/27/2019 DISCHARGE DATE: 03/09/2019 ADDENDUM: This is a addendum to a discharge summary for Gail Dorsey. HISTORY OF PRESENT ILLNESS: Ms. Pak has been in the hospital for the past 10 days. Initially presented because of diabetic necrotic foot. She successfully underwent amputation of the 4th and 5th digits on the left foot on 03/08/2019. She has been fairly stable. The culture prior to surgery did show Providencia stuartii and she has been on adequate antibiotics since. Clinically, we think she is fairly stable at this point. She can be discharged. PHYSICAL EXAMINATION: Current Vital Signs: Blood pressure is 121/64, pulse of 80, respirations 18, temperature 98.7 degrees. The patient is saturating 99% on room air. General: Physical exam is completely unremarkable. DISPOSITION: I have reviewed her I have reviewed and reconciled her home medications. I have discussed the antimicrobial therapy with DR. Prakash and he does not plan to put her on any more antibiotics. Please refer to the details of the discharge summary in the chart. cc: Luis Armando Null MD
== END 2019-03-09 20:30 | DRG 239 ==
LOC: P.ED 07:57 → SUATTDRO 12:26 → P.EDIPHOLD 12:26 → 4N 02-28 14:44
PROVIDERS: ATTEND Internal Medicine
CPT/HCPCS: 51702; 71010; 71045; 73620; 80048; 80053; 80069; 81001; 82550; 82607; 82728; 82746; 82948; 83036; 83540; 83550; 83605; 84484; 85025; 85027; 85610; 85730; 87040; 87070; 87077; 87088; 87186; 87324; 88305; 93005; 93010; 94761; 94799; 99285; A9270; J0696; J1815; J2270; J2370; J2543; J3370; J3475; J7030; J7050; S0030; XXXXX